=== PATIENT | female | born 1945 | race Caucasian/White ===

== ENCOUNTER 2020-09-08 09:31 | Outpatient (REF) | payer MEDICARE, OTHER, SELFPAY ==
[2020-09-08 11:13] LABS: MANUAL DIFF FLAG NO
[2020-09-08 11:30] LABS: Basophils Absolute Auto 0.1 X10*3/uL (0.0-0.2); Basophils Percent Auto 0.9 % (0-2); Eosinophils Absolute Auto 0.1 X10*3/uL (0.0-0.4); Eosinophils Percent Auto 1.9 % (0-4); Hematocrit 40.8 % (37-47); Hemoglobin 13.5 g/dl (12.0-16.0); Imm Gran Abs Auto 0.02 X10*3/uL (0.00-0.03); Imm Gran Pct Auto 0.3 % (0.0-0.4); Lymphocytes Absolute Auto 1.9 X10*3/uL (1.2-4.9); Lymphocytes Percent Auto 32.5 % (20-40); Mean Corpuscular HGB Conc 33.1 g/dl (31.0-35.0); Mean Corpuscular Hemoglobin 30.5 pg (27.0-33.0); Mean Corpuscular Volume 92.3 fL (80-98); Monocytes Absolute Auto 0.4 X10*3/uL (0.1-1.2); Monocytes Percent Auto 7.3 % (2-11); Neutrophils Absolute Auto 3.3 X10*3/uL (2.0-8.3); Neutrophils Percent Auto 57.1 % (45-73); Platelet Count 426 X10*3/uL (160-400); Red Blood Count 4.42 X10*6/uL (4.20-5.50); Red Cell Distribution Width 12.8 % (11.0-16.0); White Blood Count 5.8 X10*3/uL (4.8-10.8)
[2020-09-08 11:42] LABS: Alanine Aminotransferase 36 U/L (0-31); Albumin Level 4.3 g/dL (3.5-5.0); Alkaline Phosphatase 57 U/L (39-117); Anion Gap 12 (12-20); Aspartate Amino Transferase 25 U/L (5-31); Blood Urea Nitrogen 12 mg/dL (9-16); Calcium 9.4 mg/dL (8.4-10.2); Carbon Dioxide 28 mmol/L (22-29); Chloride 102 mmol/L (96-108); Cholesterol 190 mg/dL; Estimated Glomerular Filt Rate > 60; Glucose Random 86 mg/dL (60-115); HDL Cholesterol 43 mg/dL; LDL Cholesterol Calculated 123 mg/dl; Potassium 4.2 mmol/L (3.3-5.1); Sodium 138 mmol/L (135-145); Total Protein 6.7 g/dL (6.5-8.0); Triglycerides 123 mg/dL
[2020-09-08 12:08] LABS: Free T4 (Free Thyroxine) 0.88 ng/dL (0.71-1.85); Thyroid Stimulating Hormone 2.57 uIU/mL (0.32-4.0); Vitamin D 25-OH Total 28.8 ng/mL (>30)
[2020-09-08 12:17] LABS: Folate 10.9 ng/mL (> or = 4.0); Vitamin B12 266 pg/mL (200-900)
== END 2020-09-08 09:32 | disposition home or self-care (01) ==
LOC: HO.HMGCLDS 09:31
PROVIDERS: PCP Internal Medicine; Visit Provider Internal Medicine
DX: E78.00 Pure hypercholesterolemia, unspecified (principal)
CPT/HCPCS: 36415; 80053; 80061; 82306; 82607; 82746; 84439; 84443; 85025

== ENCOUNTER 2020-10-28 07:16 | Outpatient (REF) | payer MEDICARE, OTHER, SELFPAY ==
--- NOTE | ~2020-10-28 | MM_ITS ---
EXAMINATION: MM SCREENING DIGITAL BREAST TOMOSYNTHESIS, RIGHT CLINICAL INFORMATION: Screening. Asymptomatic. Left mastectomy 1992. COMPARISON: Mammography: 07/11/2019, 06/04/2018, 04/20/2017, 03/29/2016, 08/17/2015, 02/23/2015, 02/17/2015, 01/20/2014, 12/13/2012, 07/07/2011 TECHNIQUE: Digital breast tomosynthesis is performed in both the craniocaudal and mediolateral oblique views along with computer-aided detection (CAD). Synthesized 2D images are generated from the tomosynthesis. Additional exaggerated CC view is provided. FINDINGS: There are scattered areas of fibroglandular density (ACR BI-RADS breast composition Category b). There is architectural distortion 7:00 position approximately 4 cm from nipple. Patient will be recalled to further characterize. The remainder the right breast shows scattered fibroglandular densities similar to prior exams. The skin contours are smooth. MM/MM tomosynthesis screening RT IMPRESSION: Architectural distortion 7:00 position approximately 4 cm from nipple. ASSESSMENT: BI-RADS 0: Incomplete - Need Additional Imaging Evaluation RECOMMENDATION: 1. Additional views of the right breast (3-D spot CC, 3-D spot ML) 2. Targeted ultrasound right breast. 3. Radiology department staff will contact the patient for additional imaging. This patient's information was entered into a reminder system with a target due date for their next mammogram.
== END 2020-10-28 07:17 | disposition home or self-care (01) ==
LOC: HO.MAMMO 07:16
PROVIDERS: PCP Internal Medicine; Visit Provider Internal Medicine
DX: Z12.31 Encounter for screening mammogram for malignant neoplasm of breast (principal)
CPT/HCPCS: 77063; 77067

== ENCOUNTER 2020-11-12 13:09 | Outpatient (REF) | payer MEDICARE, OTHER, SELFPAY ==
--- NOTE | ~2020-11-12 | US_ITS ---
EXAMINATION: US DIAGNOSTIC ULTRASOUND BREAST, RIGHT CLINICAL INFORMATION: Asymmetric right breast density. COMPARISON: November 12, 2020 and studies dating back to July 07, 2011. TECHNIQUE: Ultrasound of the breast is performed with real-time lam scale imaging and color Doppler. FINDINGS: Targeted ultrasound evaluation of the right breast at the 8:00 position approximately 4 cm from the nipple demonstrates a heterogeneous and mainly hyperechoic region containing a small 3 mm cyst which has distal sound shadowing over a width of 1.2 cm. Recommend ultrasound-guided core biopsy of this region. Results are discussed with the patient at time of visit. Referring provider's office was called with Carola being given the above recommendation. US/US breast RT limited IMPRESSION: Somewhat irregular density about the inferior lateral aspect of the right breast with abnormal ultrasound findings as described above. Ultrasound-guided core biopsy is recommended. ASSESSMENT: BI-RADS 4: Suspicious (subcategory 4A: Low suspicion for malignancy) RECOMMENDATION: Ultrasound-guided right breast core biopsy.
--- NOTE | ~2020-11-12 | MM_ITS ---
EXAMINATION: MM DIAGNOSTIC DIGITAL BREAST TOMOSYNTHESIS, RIGHT. Targeted right breast ultrasound CLINICAL INFORMATION: Irregular density about the inferior lateral aspect of the right breast COMPARISON: Mammography: Mammography of October 28, 2020 and studies dating back to July 07, 2011 TECHNIQUE: Digital breast tomosynthesis is performed. 2D images are generated from the tomosynthesis. The following views are obtained: Spot compression craniocaudal and 90 degree mediolateral views of the right breast. Targeted right breast ultrasound FINDINGS: There are scattered areas of fibroglandular density (ACR BI-RADS breast composition Category b). The asymmetric density about the inferior lateral aspect of the right breast approximately 4 cm from the nipple is persistent and more prominent than it was on studies of June 04, 2018 and earlier. There is a question of some spiculation with somewhat low density center which may be related to radial scar. No suspicious calcifications identified. Targeted ultrasound evaluation of the right breast at the 8:00 position approximately 4 cm from the nipple demonstrates a heterogeneous and mainly hyperechoic region containing a small 3 mm cyst which has distal sound shadowing over a width of 1.2 cm. Recommend ultrasound-guided core biopsy of this region. Results are discussed with the patient at time of visit. Referring provider's office was called with Carola being given the above recommendation. MM/MM tomosynthesis added views R IMPRESSION: Somewhat irregular density about the inferior lateral aspect of the right breast with abnormal ultrasound findings as described above. Ultrasound-guided core biopsy is recommended. ASSESSMENT: BI-RADS 4: Suspicious (subcategory 4A: Low suspicion for malignancy) RECOMMENDATION: Ultrasound-guided right breast core biopsy.
== END 2020-11-12 13:10 | disposition home or self-care (01) ==
LOC: HO.MAMMO 13:09
PROVIDERS: Visit Provider Internal Medicine
DX: R92.2 Inconclusive mammogram (principal)
CPT/HCPCS: 76642; 77061; 77065

== ENCOUNTER 2020-12-11 09:41 | Outpatient (REF) | payer MEDICARE, OTHER, SELFPAY ==
--- NOTE | ~2020-12-11 | US_ITS ---
EXAMINATION: US DIAGNOSTIC ULTRASOUND BREAST, RIGHT CLINICAL INFORMATION: 75-year-old scheduled for ultrasound-guided core biopsy parenchymal asymmetry lower outer right breast. No palpable abnormality. COMPARISON: Mammography 10/28/2020, 11/12/2020, targeted right breast ultrasound 11/12/2020. TECHNIQUE: Ultrasound right breast is targeted to the lower and outer quadrant. Grayscale imaging and color Doppler are performed without and with chronic. FINDINGS: Case previously reviewed with interpreting radiologist from the diagnostic mammography and right breast ultrasound 11/12/2020. The real-time ultrasound findings are not clearly appreciated on the saved images from 11/12/2020. Rescanning today shows superficial punctate cyst as previously noted and some scant nonfocal shadowing. There is no clearly definable focal ultrasound finding to confidently direct tissue sampling. Therefore, right breast biopsy was subsequently performed under stereotactic guidance and described in a separate report. US/US breast ndl core biopsy RT IMPRESSION: Recently noted real-time ultrasound findings are not clearly appreciated to confidently direct tissue sampling. Right breast biopsy subsequently performed under stereotactic guidance same date. See separate report.
--- NOTE | ~2020-12-11 | MM_ITS ---
EXAMINATION: STEREOTACTIC TOMOSYNTHESIS-GUIDED VACUUM-ASSISTED BREAST BIOPSY, RIGHT SPECIMEN RADIOGRAPH, RIGHT POST PROCEDURE DIGITAL BREAST TOMOSYNTHESIS, RIGHT CLINICAL INFORMATION: Parenchymal asymmetry with questionable architectural changes anterior inferior lateral right breast. Prior history left mastectomy for breast cancer 1991. COMPARISON: Mammography 11/12/2020, 5 11/12/2020, 07/11/2019, 06/04/2018, 04/20/2017, 03/29/2016, 08/17/2015, 02/23/2015, 02/17/2015. Ultrasound right breast 11/12/2020. TECHNIQUE/PROCEDURE: Informed consent was obtained from the patient after discussion of the benefits, risks, and alternatives to biopsy today. Patient appeared to understand. Gave opportunity for questions. Patient signed consent form. BIOPSY TABLE: [employer] Prone Biopsy System. LESION: Parenchymal asymmetry inferior lateral right breast. LOCAL ANESTHESIA: 7 mL 1% lidocaine; 12 mL 1% lidocaine with epinephrine. DERMATOTOMY: Single skin shiva dermatotomy performed. NEEDLE: [employer] Eviva 9-gauge vacuum assisted core biopsy device. APPROACH: lateral medial. TARGETING: Digital breast tomosynthesis used for targeting. CORES: 12. CLIP: [employer] Cylinder-shaped marker. SPECIMEN RADIOGRAPH: Specimen radiograph is taken in separate room using digital mammography. There are scattered parenchymal densities in the cores expected. POST PROCEDURE DIGITAL BREAST TOMOSYNTHESIS, RIGHT: The post biopsy mammogram is performed in separate room using separate digital breast tomosynthesis equipment from the biopsy procedure. CC and ML views are obtained. Synthesized images are obtained from the tomography. There are scattered areas of fibroglandular density (breast composition category: b). The clip marker is in position. No significant hematoma present. The patient tolerated the procedure well. Home instructions reviewed with the patient. Final pathology results are pending. MM/MM stereotactic biopsy RT IMPRESSION: 1. Digital tomosynthesis-guided core biopsy right breast with clip placement. 2. Specimen radiograph taken and post procedure mammogram. There is satisfactory positioning of the biopsy clip. 3. Final pathology results pending. An addendum report will be issued.
== END 2020-12-11 09:42 | disposition home or self-care (01) ==
LOC: HO.MAMMO 09:41
PROVIDERS: Visit Provider Surgery
DX: R92.8 Other abnormal and inconclusive findings on diagnostic imaging of breast (principal); N64.89 Other specified disorders of breast; Z79.899 Other long term (current) drug therapy; Z87.891 Personal history of nicotine dependence
CPT/HCPCS: 19081; 19083; 88305; 99202; A4648

== ENCOUNTER → 2020-12-15 09:01 | Outpatient (BNVA) | payer MEDICARE, OTHER, SELFPAY | PROVIDERS: PCP Internal Medicine; Referring Provider Internal Medicine; Visit Provider Surgery | DX: N64.89 Other specified disorders of breast (principal) | CPT/HCPCS: 99202 ==

== ENCOUNTER 2021-10-19 07:07 | Outpatient (REF) | payer MEDICARE, OTHER, SELFPAY ==
[2021-10-19 11:40] LABS: MANUAL DIFF FLAG NO
[2021-10-19 11:49] LABS: Basophils Absolute Auto 0.1 X10*3/uL (0.0-0.2); Basophils Percent Auto 1.3 % (0-2); Eosinophils Absolute Auto 0.2 X10*3/uL (0.0-0.4); Eosinophils Percent Auto 3.7 % (0-4); Hematocrit 41.8 % (37.0-47.0); Hemoglobin 13.9 g/dl (12.0-16.0); Imm Gran Abs Auto 0.03 X10*3/uL (0.00-0.03); Imm Gran Pct Auto 0.5 % (0.0-0.4); Lymphocytes Absolute Auto 1.8 X10*3/uL (1.2-4.9); Mean Corpuscular HGB Conc 33.3 g/dl (31.0-35.0); Mean Corpuscular Hemoglobin 31.5 pg (27.0-33.0); Mean Corpuscular Volume 94.8 fL (80.0-98.0); Mean Platelet Volume 10.3 fL (9.4-12.3); Monocytes Absolute Auto 0.7 X10*3/uL (0.1-1.2); Monocytes Percent Auto 11.3 % (2-11); Neutrophils Absolute Auto 3.4 x10*3/uL (2.0-8.3); Neutrophils Percent Auto 54.2 % (45-73); Platelet Count 435 X10*3/uL (160-400); Red Blood Count 4.41 X10*6/uL (4.20-5.50); Red Cell Distribution Width 13.2 % (11.0-16.0); White Blood Count 6.2 X10*3/uL (4.8-10.8)
[2021-10-19 12:19] LABS: Alanine Aminotransferase 23 U/L (0-31); Albumin Level 4.1 g/dL (3.5-5.0); Alkaline Phosphatase 58 U/L (39-117); Anion Gap 10 (12-20); Aspartate Amino Transferase 22 U/L (5-31); Bilirubin Total 0.6 mg/dL (0.0-1.0); Blood Urea Nitrogen 17 mg/dL (9-16); Calcium 9.8 mg/dL (8.4-10.2); Carbon Dioxide 27 mmol/L (22-29); Chloride 106 mmol/L (96-108); Cholesterol 202 mg/dL; Estimated Glomerular Filt Rate 53; Glucose Random 83 mg/dL (60-115); HDL Cholesterol 52 mg/dL; LDL Cholesterol Calculated 133 mg/dl; Sodium 138 mmol/L (135-145); Total Protein 6.6 g/dL (6.5-8.0); Triglycerides 85 mg/dL
[2021-10-19 12:25] LABS: Free T4 (Free Thyroxine) 0.95 ng/dL (0.71-1.85); Thyroid Stimulating Hormone 3.75 uIU/mL (0.32-4.0); Vitamin D 25-OH Total 31.5 ng/mL (>30)
[2021-10-19 12:43] LABS: Folate 6.1 ng/mL (> or = 4.0); Vitamin B12 589 pg/mL (200-900)
== END 2021-10-19 07:08 | disposition home or self-care (01) ==
LOC: HO.HMGCLDS 07:07
PROVIDERS: Visit Provider Internal Medicine
DX: K21.9 Gastro-esophageal reflux disease without esophagitis (principal); E78.00 Pure hypercholesterolemia, unspecified
CPT/HCPCS: 36415; 80053; 80061; 82306; 82607; 82746; 84439; 84443; 85025

== ENCOUNTER 2022-02-03 13:20 | Outpatient (REF) | payer MEDICARE, OTHER, SELFPAY ==
[2022-02-03 16:44] LABS: Appearance Urine CLOUDY; Color Urine YELLOW; Glucose Urine UA NEG (NEG); Leukocyte Esterase Urine 3+ (NEG); Nitrite Urine NEG (NEG); PH 5.5 (5.0-8.0); Specific Gravity - Urine 1.025 (1.005-1.025); UACC Culture Trigger YES; Urine Blood TRACE (NEG); Urine Ketones NEG (NEG); Urine Protein NEG (NEG-TRACE)
[2022-02-03 16:55] LABS: Squamous Epithelial Cell Urine 1+ /LPF; WBC Urine 30-49 /HPF (0-4)
[2022-02-03 16:56] LABS: Bacteria Urine 2+ /LPF
== END 2022-02-03 13:21 | disposition home or self-care (01) ==
LOC: HO.HMGCLDS 13:20
PROVIDERS: PCP Internal Medicine; Visit Provider Internal Medicine
DX: N39.0 Urinary tract infection, site not specified (principal)
CPT/HCPCS: 81001; 87086

== ENCOUNTER 2022-02-23 12:54 | Outpatient (REF) | payer MEDICARE, OTHER, SELFPAY | END 2022-02-23 12:55 | disposition home or self-care (01) | LOC: HO.HMGCLNP 12:54 | PROVIDERS: PCP Internal Medicine; Visit Provider Internal Medicine | DX: Z13.89 Encounter for screening for other disorder (principal) ==

== ENCOUNTER 2022-02-24 08:51 | Outpatient (REF) | payer MEDICARE, OTHER, SELFPAY ==
[2022-02-24 13:29] LABS: Appearance Urine Clear; Color Urine Yellow; Glucose Urine UA Negative (Negative); Leukocyte Esterase Urine Small (1+) (Negative); Nitrite Urine Negative (Negative); PH 5.5 (5.0-9.0); Urine Blood Negative (Negative); Urine Ketones Negative (Negative); Urine Protein Negative (Neg-Trace)
[2022-02-24 13:45] LABS: Bacteria Urine None Seen (None Seen); Hyaline Casts Urine 0-2 /LPF (0-2); RBC Urine 0-2 /HPF (0-2); UACC Culture Trigger YES; WBC Urine 0-5 /HPF (0-5)
== END 2022-02-24 08:52 | disposition home or self-care (01) ==
LOC: HO.HMGCLDS 08:51
PROVIDERS: PCP Internal Medicine; Visit Provider Internal Medicine
DX: N39.0 Urinary tract infection, site not specified (principal)
CPT/HCPCS: 81001; 81003; 87086

== ENCOUNTER 2022-03-01 12:44 | Outpatient (REF) | payer MEDICARE, OTHER, SELFPAY ==
--- NOTE | ~2022-03-01 | MM_ITS ---
EXAMINATION: BONE DENSITOMETRY CLINICAL INDICATION: Osteoporosis. COMPARISON: Previous BD dated 07/11/2019 and baseline BD dated 06/09/2008. TECHNIQUE: Using a [employer] DXA System (software version: 13.1) manufactured by [employer], dual-energy x-ray absorptiometry was performed of the lumbar spine and right hip. Patient with left hip replacement. The images are of good technical quality. Summary results are attached. FINDINGS: AP SPINE L1-L4: Current: BMD 1.402 g/cm2, Z-score 3.0, T-score 1.8, normal, 5.0% increase from previous, 14.5% increase from baseline (<5% change is not significant). Prior: BMD 1.335 g/cm2. Baseline: BMD 1.224 g/cm2. RIGHT FEMUR, NECK: Current: BMD 0.930 g/cm2, Z-score 0.9, T-score -0.8, normal. Prior: BMD 0.841 g/cm2. Baseline: BMD 0.743 g/cm2. RIGHT FEMUR, TOTAL: Current: BMD 0.871 g/cm2, Z-score 0.4, T-score -1.1, osteopenia, 1.3% increase from previous, 8.6% decrease from baseline (<5% change is not significant). Prior: BMD 0.860 g/cm2. Baseline: BMD 0.953 g/cm2. IDENTIFIED RISK FACTORS: Menopause, low calcium intake, family history (parent hip fracture). HISTORY OF FRACTURE: None listed. MEDICATIONS: Calcium, vitamin D. MM/XR DEXA axial skeleton IMPRESSION: 1. DIAGNOSIS: Osteopenia based on the lowest T-score value of -1.1 in the total femur applying World Health Organization criteria. 2. 10-YEAR FRACTURE RISK PREDICTION, FRAX: Major osteoporotic fracture (clinical spine, forearm, hip or shoulder) 15.7%. Hip fracture 6.7%. 3. Treatment Recommendations: NOF guidelines recommend consideration for treatment in postmenopausal women and men age 50 and older presenting with the following: -A hip or vertebral (clinical or morphometric) fracture. -T-score less than or equal to -2.5 at the femoral neck or spine after appropriate evaluation to exclude secondary causes. -Low bone mass at the hip or spine and a 10-year fracture probability by FRAX of greater than or equal to 3% for hip fracture or greater than or equal to 20% for major osteoporotic fracture based on the [place] adapted WHO algorithm. 4. Other Recommendations: All treatment decisions require clinical judgment and consideration of individual patient factors, including patient preferences, comorbidities, previous drug use, risk factors not captured in the FRAX model (e.g. frailty, falls, vitamin D deficiency, increased bone turnover, interval significant decline in bone density) and possible under or overestimation of fracture risk by FRAX. Additional medical evaluation for secondary cause of low bone mineral density may be appropriate. FUTURE SCAN RECOMMENDATION: People with diagnosed cases of osteoporosis or at high risk for fracture should have regular bone mineral density tests. For patients eligible for Medicare, routine testing is allowed once every 2 years. The testing frequency can be increased to one year for patients who have rapidly progressing disease, those who are receiving or discontinuing medical therapy to restore bone mass, or have additional risk factors.
== END 2022-03-01 12:45 | disposition home or self-care (01) ==
LOC: HO.MAMMO 12:44
PROVIDERS: PCP Internal Medicine; Visit Provider Internal Medicine
DX: Z13.820 Encounter for screening for osteoporosis (principal); M81.0 Age-related osteoporosis without current pathological fracture; Z78.0 Asymptomatic menopausal state
CPT/HCPCS: 77080

== ENCOUNTER 2023-01-16 09:01 | Outpatient (REF) | payer MEDICARE, OTHER, SELFPAY ==
[2023-01-16 11:32] LABS: MANUAL DIFF FLAG NO
[2023-01-16 11:45] LABS: Basophils Absolute Auto 0.1 X10*3/uL (0.0-0.2); Basophils Percent Auto 1.1 % (0-2); Eosinophils Absolute Auto 0.2 X10*3/uL (0.0-0.4); Eosinophils Percent Auto 3.4 % (0-4); Hematocrit 42.6 % (37.0-47.0); Hemoglobin 13.9 g/dl (12.0-16.0); Imm Gran Abs Auto 0.03 X10*3/uL (0.00-0.03); Imm Gran Pct Auto 0.5 % (0.0-0.4); Lymphocytes Absolute Auto 2.2 X10*3/uL (1.2-4.9); Lymphocytes Percent Auto 34.2 % (20-40); Mean Corpuscular HGB Conc 32.6 g/dl (31.0-35.0); Mean Corpuscular Hemoglobin 30.7 pg (27.0-33.0); Mean Platelet Volume 10.6 fL (9.4-12.3); Monocytes Absolute Auto 0.5 X10*3/uL (0.1-1.2); Monocytes Percent Auto 7.3 % (2-11); Neutrophils Absolute Auto 3.4 x10*3/uL (2.0-8.3); Neutrophils Percent Auto 53.5 % (45-73); Platelet Count 421 X10*3/uL (160-400); Red Blood Count 4.53 X10*6/uL (4.20-5.50); Red Cell Distribution Width 13.4 % (11.0-16.0); White Blood Count 6.4 X10*3/uL (4.8-10.8)
[2023-01-16 12:07] LABS: Alanine Aminotransferase 20 U/L (0-31); Albumin Level 4.2 g/dL (3.5-5.0); Alkaline Phosphatase 61 U/L (39-117); Anion Gap 11 (12-20); Aspartate Amino Transferase 22 U/L (5-31); Bilirubin Total 0.6 mg/dL (0.0-1.0); Blood Urea Nitrogen 10 mg/dL (9-16); Calcium 9.5 mg/dL (8.4-10.2); Carbon Dioxide 27 mmol/L (22-29); Chloride 106 mmol/L (96-108); Cholesterol 190 mg/dL; Estimated Glomerular Filt Rate > 60; Glucose Random 94 mg/dL (60-115); HDL Cholesterol 44 mg/dL; LDL Cholesterol Calculated 123 mg/dl; Potassium 4.1 mmol/L (3.3-5.1); Sodium 140 mmol/L (135-145); Total Protein 6.9 g/dL (6.5-8.0); Triglycerides 117 mg/dL
[2023-01-16 12:14] LABS: Free T4 (Free Thyroxine) 1.05 ng/dL (0.71-1.85); Thyroid Stimulating Hormone 2.86 uIU/mL (0.32-4.0); Vitamin D 25-OH Total 44.4 ng/mL (>30)
[2023-01-16 12:33] LABS: Folate 10.6 ng/mL (> or = 4.0); Vitamin B12 334 pg/mL (200-900)
== END 2023-01-16 09:02 | disposition home or self-care (01) ==
LOC: HO.HMGCLDS 09:01
PROVIDERS: PCP Internal Medicine; Visit Provider Internal Medicine
DX: E78.00 Pure hypercholesterolemia, unspecified (principal); M85.80 Other specified disorders of bone density and structure, unspecified site; E55.9 Vitamin D deficiency, unspecified
CPT/HCPCS: 36415; 80053; 80061; 82306; 82607; 82746; 84439; 84443; 85025

== ENCOUNTER 2023-01-23 08:41 | Outpatient (AMB) | payer MEDICARE, OTHER, SELFPAY ==
[2023-01-23 08:45] VITALS: BP 124/78; PULSE 72; O2SAT 99; BMI 29.0
--- NOTE | 2023-01-23 08:45 | A.OFFPC_ITS ---
Vital Signs 01/23/23 08:45 Height 5 ft 7 in Weight 185 lb BMI 29.0 BP 124/78 Blood Pressure Location Rt brachial Position Sitting Pulse 72 Pulse Source Pulse Oximeter Temp Source Skin Pulse Oximetry (%) 99 Oxygen Delivery Method Room Air Intake Visit Reasons: Annual Exam Intake Note: Patient is here today for a physical. 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 Allergies ciprofloxacin [Cipro] Allergy (Unknown, Verified 01/23/23 08:49) Unknown pravastatin Allergy (Unknown, Verified 01/23/23 08:49) Unknown rosuvastatin [Crestor] Allergy (Unknown, Verified 01/23/23 08:49) leg cramps simvastatin Allergy (Unknown, Verified 01/23/23 08:49) Unknown Medication List - Last Reconciled 01/23/23 by Sejal Stern MD amlodipine 2.5 mg PO DAILY calcium carbonate-vitamin D3 600 mg-5 mcg (200 unit) (Calcium 600 + D(3)) 1 tab PO DAILY celecoxib 200 mg PO DAILY ezetimibe 10 mg PO DAILY gabapentin 100 mg PO BEDTIME multivitamin 1 tab PO DAILY omeprazole 20 mg PO DAILY 90 days Tobacco use date assessed: 01/23/23 Fall risk assessment: No Falls in past year Last assessed Fall Risk: 01/23/23 Dental Screening Dental Screen Date: 01/23/23 Did you have a dental visit in the last 12 months?: Yes Did you have a dental problem in the last 6 months where you did not have access to dental care?: No Was dental information given to patient?: Patient has dentist HPI Annual Exam HPI Details 77-year-old overweight female with history of left breast cancer hypertension hypercholesterolemia GERD osteopenia last seen in June 2022. Patient is here for physical exam. Review of the notes in October was here in the office for preoperative evaluation for cataract surgery in October in November. Patient has also met with Orthopedics for an intra-articular right hip injection for arthritis. patient states burning 2x this summer neck chest and epigastric area wakes patient up states palpitations also no n no v no fevwers, no coughing, states getting sob on walking up the stairs. PENDING SALE TO [facility] Medical History (Updated 01/23/23 @ 09:11 by Sejal Stern MD) Abnormal ultrasound of breast Age-related osteoporosis without current pathological fracture Annual physical exam Breast cancer, left Breast density GERD (gastroesophageal reflux disease) Hip osteoarthritis Hypercholesterolemia Osteopenia Peripheral neuropathy Radial scar of right breast Skin cancer, basal cell Subclinical hypothyroidism Vaginal wall prolapse Surgical History (Updated 01/23/23 @ 09:02 by Sejal Stern MD) History of cataract surgery History of cholecystectomy History of left hip replacement History of left mastectomy History of lumbar surgery History of tonsillectomy and adenoidectomy Family History Father CVD (cardiovascular disease) Mother Uterine cancer Brother In good health Daughter In good health Brother Cancer Social History (Updated 01/23/23 @ 09:13 by Sejal Stern MD) Housing: House Alcohol intake: current Patient Tobacco Use Status: Former Tobacco user Years Smoked: 37 years old e-Cigarette/Vaping Use: Never Used Second Hand Smoke Exposure: No Current occupational status: retired Cognitive needs: No Hearing needs: No Vision needs: Yes Female Reproductive History Menstrual Age of Menarche: 11 Questionnaire PHQ-9 Over the last 2 weeks, how often have you been bothered by any of the following problems? 1. Little interest or pleasure in doing things: not at all 2. Feeling down, depressed, or hopeless: not at all 3. Trouble falling or staying asleep, or sleeping too much: not at all 4. Feeling tired or having little energy: not at all 5. Poor appetite or overeating: not at all 6. Feeling bad about yourself - or that you are a failure or have let yourself or your family down: not at all 7. Trouble concentrating on things, such as reading the newspaper or watching television: not at all 8. Moving or speaking so slowly that other people could have noticed. Or the opposite - being so fidgety or restless that you have been moving around a lot more than usual: not at all 9. Thoughts that you would be better off or of hurting yourself in some way: not at all Total score: 0 Depression Screening Interpretation: Negative Source: Developed by Drs. Lennox Stoll, Lulu Mar, Jerrell Newman and colleagues, with an educational jessie from [employer]. Thrive Questionnaire Date Thrive assessed: 07/20/22 I am a: Patient What is your living situation today?: I have a steady place to live Within the past 12 months, did the food you bought not last and you didn't have the money to get more?: Never true Within the past 12 months, did you worry whether your food would run out before you got money to buy more?: Never true AUDIT C Alcohol Use Questionnaire (AUDIT-C) 1. How often do you have a drink containing alcohol?: 2-3 times a week 3. How often do you have six or more drinks on one occasion?: Never Total Score: 3 SERG-7 AMB Questionnaire SERG-7 Date SERG - 7 assessed: 01/23/23 Feeling nervous, anxious, or on edge: 0 = Not at all Not being able to stop or control worryin = Not at all Worrying too much about different things: 0 = Not at all Trouble relaxin = Not at all Being so restless that it is hard to sit still: 0 = Not at all Becoming easily annoyed or irritable: 0 = Not at all Feeling afraid as if something awful might happen: 0 = Not at all Total SERG-7 score (0-4 normal; 5-9 mild; 10-14 moderate; 15-21 severe): 0 Source: Developed by Drs. Lennox Stoll, Lulu Mar, Jerrell Newman and colleagues, with an educational jessie from [employer]. Review of Systems Const Denies poor appetite and Denies weakness Eyes Denies no additional complaints ENT Reports Normal hearing present, Denies dizziness, Denies nasal congestion, Denies tinnitus and Denies sore throat Card Denies chest pain, Denies syncope, Denies rapid heart rate and Denies dyspnea Resp Denies cough and Denies dyspnea GI Denies change in stool character, Reports constipation, Denies diarrhea, Denies nausea and Denies vomiting Denies urinary frequency, Denies difficulty voiding and Denies dysuria Neuro Reports Normal hearing present, Denies confusion, Denies dizziness, Denies syncope and Denies weakness Psych Denies confusion Physical exam (Primary Care) Vital Signs: Last Vital Signs Pulse 72 01/23/23 08:45 BP 124/78 01/23/23 08:45 Pulse Ox 99 01/23/23 08:45 Oxygen Delivery Method Room Air 01/23/23 08:45 BMI result Body Mass Index 29.0 Tobacco/Smoking Status: Tobacco use Status Tobacco use date assessed 01/23/23 01/23/23 08:51 Patient Tobacco Use Status Former Tobacco user 01/23/23 08:51 e-Cigarette/Vaping Use Never Used 01/23/23 08:51 PHQ-9: PHQ-9 Score PHQ-9: Total score 0 01/23/23 08:51 Depression Screening Interpretation: Negative Thrive Assessment: Date of Thrive Assessment Date Thrive assessed 07/20/22 01/23/23 08:51 Const General: No confusion Orientation/consciousness: No confusion HENMT Head: Yes normocephalic Ears: external ears normal and TM's normal bilaterally Face and sinus: Yes normal facial exam Mouth: moist mucous membranes Throat: Yes tonsils normal Eyes Conjunctivae: conjunctivae normal Pupils: Equal, round and reactive pupils present and Pupil accommodation reflex normal Direct Ophthalmoscopy: normal light reflex Neck Neck: No lymphadenopathy Thyroid: Thyroid normal Chest Chest palpation & inspection: normal inspection of the chest Resp Effort & Inspection: normal respiratory effort and no audible wheezes Auscultation: clear to auscultation bilaterally, no crackles, no wheezes and lung sounds not diminished Cardio Rate: regular rate Rhythm: regular rhythm Peripheral pulses: radial pulses present and dorsalis pedis present GI Palpation (GI): no masses Auscultation: normal bowel sounds and normoactive bowel sounds Rectal Exam - Female: deferred Skin General skin exam: no rashes or lesions noted Rashes: no rashes Neuro General: No confusion Cranial nerves: Yes Equal, round and reactive pupils present and Yes Normal hearing present Cognition (Neuro): normal cognition Gait exam (Neuro): Normal gait present Motor exam (neuro): 5/5 motor strength present throughout Deep tendon reflexes (DTR's): Right brachioradialis reflex intensity grade: 2+, Left brachioradialis reflex intensity grade: 2+, Right patellar reflex intensity grade: 2+ and Left patellar reflex intensity grade: 2+ Extrem General: No edema Assessment and Plan Assessment & Plan (1) Physical exam, annual: Code(s): Z00.00 - Encounter for general adult medical examination without abnormal findings (2) Hypertension: Code(s): I10 - Essential (primary) hypertension Qualifiers: Hypertension type: essential hypertension Qualified Code(s): I10 - Essential (primary) hypertension Plan: Continue with blood pressure medication. Decrease salt intake and exercise patient is taking amlodipine 2.5 mg once a day (3) Hypercholesterolemia: Code(s): E78.00 - Pure hypercholesterolemia, unspecified Plan: Avoid fried foods, chicken skin, eggs, butter margarine, pastries and meat. Be it pork or beef they have a lot of cholesterol LDL goal of less than 130 and triglyceride of less than 150 patient is taking Zetia 10 mg once a day (4) GERD (gastroesophageal reflux disease): Code(s): K21.9 - Gastro-esophageal reflux disease without esophagitis Qualifiers: Esophagitis presence: without esophagitis Qualified Code(s): K21.9 - Gastro-esophageal reflux disease without esophagitis Plan: Avoid the foods that causes that usually spicy foods, tomato products, juices, coffee, soda and foods that your sensitive to. After eating do not lie down, allow 3-4 hours before in lie down. And keep the head of bed above 30 degrees to avoid the acid from going up. (5) Breast cancer, left: Comment: 1991 Code(s): C50.912 - Malignant neoplasm of unspecified site of left female breast Qualifiers: Breast location: unspecified site of breast Estrogen receptor status: unspecified Patient sex: female Qualified Code(s): C50.912 - Malignant neoplasm of unspecified site of left female breast Plan: Patient is reminded about the mammogram (6) Osteopenia: Comment: February 2022 Code(s): M85.80 - Other specified disorders of bone density and structure, unspecified site Plan: Patient is up-to-date with bone density (7) Palpitations: Code(s): R00.2 - Palpitations (8) SOB (shortness of breath) on exertion: Code(s): R06.02 - Shortness of breath Orders: Orders CA stress test Today R06.02 - Shortness of breath ECG 12 lead EKG Today R00.2 - Palpitations FL upper GI series Today K21.9 - Gastro-esophageal reflux disease without esophagitis, R13.10 - Dysphagia, unspecified Referrals Gastroenterology Referral K21.9 - Gastro-esophageal reflux disease without esophagitis Coding Level of Care Code Est Pt Prev Care >65y(41690) Diagnoses Physical exam, annual Z00.00 Hypertension I10 Hypertension type: essential hypertension Hypercholesterolemia E78.00 GERD (gastroesophageal reflux disease) K21.9 Esophagitis presence: without esophagitis Breast cancer, left C50.815 Breast location: unspecified site of breast Estrogen receptor status: unspecified Patient sex: female Osteopenia M85.80 Palpitations R00.2 SOB (shortness of breath) on exertion R06.02
== END 2023-01-23 09:33 | disposition home or self-care (01) ==
PROVIDERS: PCP Internal Medicine; Visit Provider Internal Medicine
DX: Z00.00 Encounter for general adult medical examination without abnormal findings (principal); I10 Essential (primary) hypertension; K21.9 Gastro-esophageal reflux disease without esophagitis; C50.912 Malignant neoplasm of unspecified site of left female breast; E78.00 Pure hypercholesterolemia, unspecified; M85.80 Other specified disorders of bone density and structure, unspecified site; R00.2 Palpitations; R06.02 Shortness of breath
CPT/HCPCS: 99397

== ENCOUNTER → 2023-02-06 07:27 | Outpatient (REF) | payer MEDICARE, OTHER, SELFPAY ==
--- NOTE | 2023-02-06 07:54 | CA_ITS ---
Acquisition Time: 2023-02-06 08:00:18 Total Exercise Time: 00:05:07 Test Indications: Dyspnea Medications: Protocol: HELEN Max HR: 130 BPM 92% of Pred: 141 BPM Max BP: 175/060 mmHG Max Work Load: 7.0 METS Exercise stress test 5 min 7 sec of Helen protocol achieving 92% MPHR 7 METs, with moderate SOB, no chest discomfort, with isolated PVCs and ventricular bigemey, without EKG changes. Test reviewed with Dr Johnson. Referred By: Sejal Stern Overread By: BUTCH JOHNSON MD
== END ==
LOC: HO.CARD 07:27
PROVIDERS: PCP Internal Medicine; Visit Provider Internal Medicine
DX: R06.02 Shortness of breath (principal)
CPT/HCPCS: 93017

== ENCOUNTER → 2023-02-06 07:54 | Outpatient (BNV) | payer MEDICARE, OTHER, SELFPAY | PROVIDERS: PCP Internal Medicine; Visit Provider Internal Medicine Cardiovascular Disease | DX: R06.02 Shortness of breath (principal) | CPT/HCPCS: 93016; 93018 ==

== ENCOUNTER 2023-02-14 08:34 | Outpatient (REF) | payer MEDICARE, OTHER, SELFPAY ==
--- NOTE | ~2023-02-14 | FL_ITS ---
EXAMINATION: XR FLUOROSCOPY UPPER GI WITH AIR CLINICAL INFORMATION: Patient complaining of episodic gastroesophageal reflux. COMPARISON: No relevant prior. TECHNIQUE: Standard upper GI examination was performed with air contrast utilizing thin and thick barium, with effervescent granules. Numerous fluoroscopic spot images were obtained. FINDINGS: The esophagus has normal caliber and contour. No evidence of stricture, mucosal lesion, or mass. Esophageal peristalsis was normal. Limited views of the hypopharynx demonstrated no abnormalities or evidence of laryngeal penetration or aspiration. There is a small type I hiatus hernia at the GE junction. There was episodic gastroesophageal reflux during the examination to the level of the aortic arch. This occurred without provocative maneuvers. The stomach has a normal fold pattern and contour. No ulceration, mass, or lesion identified. The duodenal bulb, and duodenal sweep have a normal appearance with normal fold pattern. No abnormalities identified in the most proximal small bowel. FLUOROSCOPY TIME: 3.7 minutes 24 images obtained. DOSE AREA PRODUCT: 36.323 uGy-m2 (microgray-meter squared) FL/FL upper GI w air IMPRESSION: Small type I hiatus hernia. Episodic gastroesophageal reflux to the level of the aortic arch. Remainder the examination was normal.
== END 2023-02-14 08:35 | disposition home or self-care (01) ==
LOC: HO.XRAY 08:34
PROVIDERS: Visit Provider Internal Medicine
DX: R13.10 Dysphagia, unspecified (principal); K21.9 Gastro-esophageal reflux disease without esophagitis
CPT/HCPCS: 74246

== ENCOUNTER → 2023-02-14 08:38 | Outpatient (BNV) | payer MEDICARE, OTHER, SELFPAY | PROVIDERS: Visit Provider Radiology Diagnostic Radiology | DX: K21.9 Gastro-esophageal reflux disease without esophagitis (principal) | CPT/HCPCS: 74246 ==

== ENCOUNTER 2023-03-17 10:16 | Outpatient (AMB) | payer MEDICARE, OTHER, SELFPAY ==
[2023-03-17 12:09] VITALS: BP 126/76; PULSE 74; TEMP 36.6; O2SAT 97; BMI 29.0
--- NOTE | 2023-03-17 12:09 | AM.OFFWIN_ITS ---
Intake Vital Signs 03/17/23 12:09 Height 5 ft 7 in Weight 185 lb BMI 29.0 BP 126/76 Blood Pressure Location Rt brachial Position Sitting Pulse 74 Pulse Source Pulse Oximeter Temp 97.9 F Temp Source Temporal Artery Scan Pulse Oximetry (%) 97 Intake Visit Reasons: EP, UTI? Intake Note: pt is here for c/o possible uti Patient Tobacco Use Status: Former Tobacco user Allergies ciprofloxacin [Cipro] Allergy (Unknown, Verified 03/17/23 12:16) Unknown pravastatin Allergy (Unknown, Verified 03/17/23 12:16) Unknown rosuvastatin [Crestor] Allergy (Unknown, Verified 03/17/23 12:16) leg cramps simvastatin Allergy (Unknown, Verified 03/17/23 12:16) Unknown Do you need a note to return to daycare/school/sports/work: Yes HPI HPI Comments History of Present Illness Details This is a 78-year-old femalewho presents to the office today for sick visit. Patient complaining of UTI symptoms x3 days. Patient reports dysuria and increased urinary frequency / urgency for the past 3 days. She denies any fevers or chills. She denies any flank pain. She denies any abdominal pain or nausea/vomiting / diarrhea. [facility] Medical History (Updated 02/06/23 @ 08:44 by Sejal Stern MD) Age-related osteoporosis without current pathological fracture Annual physical exam Radial scar of right breast Abnormal ultrasound of breast Breast density Vaginal wall prolapse Breast cancer, left Subclinical hypothyroidism Hip osteoarthritis Hypercholesterolemia Skin cancer, basal cell Peripheral neuropathy Osteopenia GERD (gastroesophageal reflux disease) Surgical History (Updated 01/23/23 @ 09:02 by Sejal Stern MD) History of cataract surgery History of lumbar surgery History of left hip replacement History of tonsillectomy and adenoidectomy History of left mastectomy History of cholecystectomy Family History Father CVD (cardiovascular disease) Mother Uterine cancer Brother In good health Daughter In good health Brother Cancer Social History (Updated 01/23/23 @ 09:13 by Sejal Stern MD) Housing: House Alcohol intake: current Patient Tobacco Use Status: Former Tobacco user Years Smoked: 37 years old e-Cigarette/Vaping Use: Never Used Second Hand Smoke Exposure: No Current occupational status: retired Cognitive needs: No Hearing needs: No Vision needs: Yes Female Reproductive History Menstrual Age of Menarche: 11 Review of Systems Const All systems reviewed & are unremarkable except as noted in HPI and below Reports no additional complaints Eyes Reports no additional complaints ENT Reports no additional complaints Card Reports no additional complaints Resp Reports no additional complaints GI Reports no additional complaints Reports no additional complaints Musc Reports no additional complaints Skin/Breast Reports system reviewed and no additional complaints, except as documented Neuro Reports no additional complaints Psych Reports no additional complaints Endo Reports no additional complaints Martínez/Lymph Reports no additional complaints Aller/Immun Reports no additional complaints Physical Exam Vital Signs: Last Vital Signs Temp 97.9 F 03/17/23 12:09 Pulse 74 03/17/23 12:09 BP 126/76 03/17/23 12:09 Pulse Ox 97 03/17/23 12:09 BMI result Body Mass Index 29.0 Const Other: Vital signs reviewed. Constitutional: Non-toxic appearing. No acute distress. Well-developed and well-nourished. HEENT: Normocephalic and atraumatic. Tympanic membranes without erythema, edema, or bulging bilaterally. External auditory canals without erythema or edema bilaterally. Moist mucous membranes. No pharyngeal erythema or exudates. Skin: Warm and dry. No rashes or lesions noted. Neck: Full and painless range of motion. No cervical lymphadenopathy. Cardio: Regular rate and rhythm. No murmurs, gallops, or rubs. No lower extremity edema. No JVD. Pulmonary: No respiratory distress. No accessory muscle usage. Clear to auscultation bilaterally without wheezing, crackles, or rhonchi. Gastrointestinal: Soft, nontender, and nondistended in all 4 quadrants. Normoactive bowel sounds in all 4 quadrants. Genitourinary: No CVA tenderness. Musculoskeletal: Normal range of motion in joints throughout the body. No deformity or other signs of injury. Neuro: Alert and oriented x4. Cranial nerves 2-12 grossly intact. No focal deficits appreciated. Psych: Normal mood and affect. Results AMB Urinalysis, Automated UA Leukoctes 500 Wilber/uL Last Edit by Nicola Matt CMA on 03/17/23 12:1 7 UA Nitrite Positive Last Edit by Nicola Matt CMA on 03/17/23 12:17 UA Urobilinogen 0.2 mg/dL Last Edit by Nicola Matt CMA on 03/17/23 12 :17 UA Protein 30 mg/dL Last Edit by Nicola Matt CMA on 03/17/23 12:17 UA pH 5.5 Last Edit by Nicola Matt CMA on 03/17/23 12:17 UA Blood 80 Jason/uL Last Edit by Nicola Matt CMA on 03/17/23 12:17 UA Specific Carlisle 1.030 Last Edit by Nicola Matt CMA on 03/17/23 12:17 UA Ketone Negative Last Edit by Nicola Matt CMA on 03/17/23 12:17 UA Bilirubin 0 mg/dL Last Edit by Nicola Matt CMA on 03/17/23 12:17 UA Glucose 0 mg/dL Last Edit by Nicola Matt CMA on 03/17/23 12:17 Results Reviewed Results Reviewed: Laboratory Last Values Urine pH (Auto) 5.5 03/17/23 12:16 Specific [place] (Auto) 1.030 03/17/23 12:16 Urine Protein (Auto) 30 mg/dL 03/17/23 12:16 Glucose (UA)(Auto) 0 mg/dL 03/17/23 12:16 Urine Ketones (Auto) Negative 03/17/23 12:16 Urine Blood (Auto) 80 Jason/uL 03/17/23 12:16 Urine Nitrite (Auto) Positive 03/17/23 12:16 Urine Bilirubin (Auto) 0 mg/dL 03/17/23 12:16 Urine Urobilinogen (Auto) 0.2 mg/dL 03/17/23 12:16 Leukocyte Esterase (Auto) 500 Wilber/uL 03/17/23 12:16 Assessment & Plan Assessment & Plan (1) UTI (urinary tract infection): Code(s): N39.0 - Urinary tract infection, site not specified Plan Patient has presenting to the office complaining of urinary symptoms including dysuria and increased urinary frequency /urgency. POCT urinalysis shows positive nitrites and positive leukocyte esterase. Patient's vital signs are stable, physical exam is benign, and patient is overall nontoxic appearing. No CVA tenderness or systemic symptoms to suggest acute pyelonephritis. Patient is safe to be discharged home. History and physical most consistent with an acute uncomplicated cystitis. Patient sent home on p.o. trimethoprim sulfamethoxazole twice daily x7 days. Recommended symptomatic management including increased fluids, Advil/Tylenol as needed for pain as long as patient has no medical contraindications, and PO phenazopyridine three times daily as needed x 3 days. Patient was advised to follow-up here or proceed directly to the emergency room if they were to develop fever/chills, nausea/vomiting, flank/back pain, or worsening/persistent symptoms. Patient verbalizes understanding and they are in agreement with the plan. Orders: Orders AMB Urinalysis Automated Today Z13.9 - Encounter for screening, unspecified Medications: New sulfamethoxazole-trimethoprim 800-160 mg (Bactrim DS) 1 tab PO BID 14 tabs 0RF phenazopyridine 100 mg PO TID PRN 6 tabs 0RF pain 6 doses Coding Level of Care Code Est Pt Level 3 (59261) Diagnoses UTI (urinary tract infection) N39.0
== END 2023-03-17 12:22 | disposition home or self-care (01) ==
PROVIDERS: Visit Provider Physician Assistant Medical
DX: N39.0 Urinary tract infection, site not specified (principal); R35.0 Frequency of micturition
CPT/HCPCS: 81003; 99213

== ENCOUNTER 2023-04-27 14:33 | Outpatient (AMB) | payer MEDICARE, OTHER, SELFPAY ==
[2023-04-27 15:09] VITALS: BP 118/70; PULSE 62; O2SAT 95; BMI 28.7
--- NOTE | 2023-04-27 15:09 | A.OFFPC_ITS ---
Vital Signs 04/27/23 15:09 Height 5 ft 7 in Weight 183 lb BMI 28.7 BP 118/70 Blood Pressure Location Rt brachial Position Sitting Pulse 62 Pulse Source Pulse Oximeter Pulse Oximetry (%) 95 Oxygen Delivery Method Room Air Intake Visit Reasons: gerd Intake Note: Patient here for a follow up GERD Office Workforce Planner Required: No Accompanied by: Self / Same As Patient Allergies ciprofloxacin [Cipro] Allergy (Unknown, Verified 04/27/23 15:11) Unknown pravastatin Allergy (Unknown, Verified 04/27/23 15:11) Unknown rosuvastatin [Crestor] Allergy (Unknown, Verified 04/27/23 15:11) leg cramps simvastatin Allergy (Unknown, Verified 04/27/23 15:11) Unknown Medication List - Last Reconciled 04/27/23 by Sejal Stern MD amlodipine 2.5 mg PO DAILY calcium carbonate-vitamin D3 600 mg-5 mcg (200 unit) (Calcium 600 + D(3)) 1 tab PO DAILY celecoxib 200 mg PO DAILY esomeprazole magnesium (Nexium) 40 mg PO DAILY ezetimibe 10 mg PO DAILY gabapentin 100 mg PO BEDTIME multivitamin 1 tab PO DAILY Tobacco use date assessed: 01/23/23 Fall risk assessment: No Falls in past year Last assessed Fall Risk: 04/27/23 Dental Screening Dental Screen Date: 04/27/23 Did you have a dental visit in the last 12 months?: No Did you have a dental problem in the last 6 months where you did not have access to dental care?: No Was dental information given to patient?: Patient has dentist HPI gerd HPI Details [age] Year-old overweight female with hypertension hypercholesterolemia GERD osteopenia and history of left breast cancer coming in for follow-up. Last seen in December for physical exam. Patient's colonoscopy is good, mammogram last 1 was December 2021 and bone density is up-to-date. Patient has gotten RSV COVID-19 and flu shot recently. Patient was in the Urgent Center in March 17 for UTI was given Bactrim. Patient was also seen by the hematology oncology had a mammogram done 02/07/2023. Patient did have an upper GI series January 2023 showing small hiatal hernia reflux to the level of the aortic arch. Complained of shortness of breath so stress test done no EKG changes. startd with sitting exercises. GI scheduled for Dr. farris but patient declined seeing him- wants a different referral. will have nasal surgery Dr. Mitchell basal cell [facility] Medical History (Updated 02/06/23 @ 08:44 by Sejal Stern MD) Age-related osteoporosis without current pathological fracture Annual physical exam Radial scar of right breast Abnormal ultrasound of breast Breast density Vaginal wall prolapse Breast cancer, left Subclinical hypothyroidism Hip osteoarthritis Hypercholesterolemia Skin cancer, basal cell Peripheral neuropathy Osteopenia GERD (gastroesophageal reflux disease) Surgical History History of cataract surgery History of lumbar surgery History of left hip replacement History of tonsillectomy and adenoidectomy History of left mastectomy History of cholecystectomy Family History (Updated 04/27/23 @ 15:13 by TRU Claire) Father CVD (cardiovascular disease) Mother Uterine cancer Brother In good health Daughter In good health Brother Cancer Social History Housing: House Alcohol intake: current Patient Tobacco Use Status: Former Tobacco user Years Smoked: 37 years old e-Cigarette/Vaping Use: Never Used Second Hand Smoke Exposure: No service: No Current occupational status: retired Cognitive needs: No Hearing needs: No Vision needs: Yes Female Reproductive History Menstrual Age of Menarche: 11 Questionnaire Thrive Questionnaire Date Thrive assessed: 07/20/22 SERG-7 AMB Questionnaire SERG-7 Date SERG - 7 assessed: 01/23/23 Source: Developed by Drs. Lennox Stoll, Lulu Mar, Jerrell Newman and colleagues, with an educational jessie from [employer]. Physical exam (Primary Care) Vital Signs: Last Vital Signs Pulse 62 04/27/23 15:09 BP 118/70 04/27/23 15:09 Pulse Ox 95 04/27/23 15:09 Oxygen Delivery Method Room Air 04/27/23 15:09 BMI result Body Mass Index 28.7 Tobacco/Smoking Status: Tobacco use Status Tobacco use date assessed 01/23/23 04/27/23 15:16 Patient Tobacco Use Status Former Tobacco user 04/27/23 15:16 e-Cigarette/Vaping Use Never Used 04/27/23 15:16 Thrive Assessment: Date of Thrive Assessment Date Thrive assessed 07/20/22 04/27/23 15:16 Const General: alert; No acute distress Eyes Conjunctivae: conjunctivae normal Resp Auscultation: clear to auscultation bilaterally Cardio Rate: regular rate Rhythm: regular rhythm GI Inspection: Yes normal to inspection Extrem General: Yes normal to inspection and No edema Assessment and Plan Assessment & Plan (1) Breast cancer, left: Comment: 1991 Code(s): C50.912 - Malignant neoplasm of unspecified site of left female breast Qualifiers: Breast location: unspecified site of breast Estrogen receptor status: unspecified Patient sex: female Qualified Code(s): C50.912 - Malignant neoplasm of unspecified site of left female breast Plan: Patient follows up with hematology oncology in January 2023 last right mammogram (2) Hypertension: Code(s): I10 - Essential (primary) hypertension Qualifiers: Hypertension type: essential hypertension Qualified Code(s): I10 - Esse ntial (primary) hypertension Plan: Continue with blood pressure medication. Decrease salt intake and exercise on amlodipine 2.5 mg once a day (3) Hypercholesterolemia: Code(s): E78.00 - Pure hypercholesterolemia, unspecified Plan: Avoid fried foods, chicken skin, eggs, butter margarine, pastries and meat. Be it pork or beef they have a lot of cholesterol takes Zetia 10 mg once a day patient is statin intolerant (4) GERD (gastroesophageal reflux disease): Code(s): K21.9 - Gastro-esophageal reflux disease without esophagitis Qualifiers: Esophagitis presence: without esophagitis Qualified Code(s): K21.9 - Gastro-esophageal reflux disease without esophagitis Plan: Avoid the foods that causes that usually spicy foods, tomato products, juices, coffee, soda and foods that your sensitive to. After eating do not lie down, allow 3-4 hours before in lie down. And keep the head of bed above 30 degrees to avoid the acid from going up. On omeprazole 20 mg once a day (5) SOB (shortness of breath) on exertion: Code(s): R06.02 - Shortness of breath Plan: Stress test done revealed negative results Orders: Orders XR chest 2V Today R06.02 - Shortness of breath PFT pulmonary function test Today R06.02 - Shortness of breath Referrals Gastroenterology Referral K21.9 - Gastro-esophageal reflux disease without esophagitis Medications: New esomeprazole magnesium (Nexium) 40 mg PO DAILY 90 caps 0RF K21.9 - Gastro- esophageal reflux disease without esophagitis Discontinued omeprazole Discontinued Reason: Patient Refused 20 mg PO DAILY 90 days 90 caps 0RF K21.9 - Gastro-esophageal reflux disease without esophagitis Coding Level of Care Code Est Pt Level 4 (80420) Diagnoses Malignant neoplasm of left female breast, unspecified estrogen receptor status, unspecified site of breast C50.912 Breast location: unspecified site of breast Estrogen receptor status: unspecified Patient sex: female Essential hypertension I10 Hypertension type: essential hypertension Hypercholesterolemia E78.00 Gastroesophageal reflux disease without esophagitis K21.9 Esophagitis presence: without esophagitis SOB (shortness of breath) on exertion R06.02
== END 2023-04-27 15:54 | disposition home or self-care (01) ==
PROVIDERS: PCP Internal Medicine; Visit Provider Internal Medicine
DX: C50.912 Malignant neoplasm of unspecified site of left female breast (principal); I10 Essential (primary) hypertension; E78.00 Pure hypercholesterolemia, unspecified; K21.9 Gastro-esophageal reflux disease without esophagitis; R06.02 Shortness of breath
CPT/HCPCS: 99214

== ENCOUNTER 2023-06-02 13:11 | Outpatient (AMB) | payer MEDICARE, OTHER, SELFPAY ==
[2023-06-02 13:20] VITALS: BP 169/71; PULSE 75; BMI 28.9
--- NOTE | 2023-06-02 13:20 | A.OFFVIS_ITS ---
Intake Vital Signs 06/02/23 13:20 Height 5 ft 7 in Weight 184 lb 11.958 oz BMI 28.9 BP 169/71 H Blood Pressure Location Rt brachial Position Sitting Pulse 75 Pulse Source Pulse Oximeter Intake Visit Reasons: Gastro-esophageal reflux disease Intake Note: Pt presents to the office today for GERD. Pt states she has GERD off and on and she states in unpredictable. Pt denies any N/V. Pt states she stopped the omeperazole because she believes it gave her diarrhea. Allergies ciprofloxacin [Cipro] Allergy (Unknown, Verified 06/02/23 13:23) Unknown pravastatin Allergy (Unknown, Verified 06/02/23 13:23) Unknown rosuvastatin [Crestor] Allergy (Unknown, Verified 06/02/23 13:23) leg cramps simvastatin Allergy (Unknown, Verified 06/02/23 13:23) Unknown HPI Gastro-esophageal reflux disease HPI Details 78-year-old female with past medical his tory of basal cell carcinoma, osteopenia, left breast CA, UTI, hypertension, hypercholesteremia, GERD, history of cholecystectomy left breast mastectomy is here today for initial consulta tion. Patient was sent to us by her PCP. Patient reports that she has been having epigastric discomfort postprandially and acid reflux. Patient reports occasional dyspepsia without dysphagia or odynophagia. Patient states that she started omeprazole, however after taking omeprazole she was having loose stools. Patient believes that this could be contributing to her taking omeprazole. Patient reports that occasionally she will have loose stools also depending on what she eats. Patient states that she feels like even though she goes to the bathroom she does not empty her bowels completely. Patient denies any nausea or vomiting. Denies any melena, hematochezia, unintentional weight loss or ribbon like stools. Patient denies any nausea or vomiting. Patient reports that she is not on any particular diet. [facility] Medical History Age-related osteoporosis without current pathological fracture Annual physical exam Radial scar of right breast Abnormal ultrasound of breast Breast density Vaginal wall prolapse Breast cancer, left Subclinical hypothyroidism Hip osteoarthritis Hypercholesterolemia Skin cancer, basal cell Peripheral neuropathy Osteopenia GERD (gastroesophageal reflux disease) Surgical History History of cataract surgery History of lumbar surgery History of left hip replacement History of tonsillectomy and adenoidectomy History of left mastectomy History of cholecystectomy Family History Father CVD (cardiovascular disease) Mother Uterine cancer Brother In good health Daughter In good health Brother Cancer Social History Housing: House Alcohol intake: current Patient Tobacco Use Status: Former Tobacco user Years Smoked: 37 years old e-Cigarette/Vaping Use: Never Used Second Hand Smoke Exposure: No service: No Current occupational status: retired Cognitive needs: No Hearing needs: No Vision needs: Yes Female Reproductive History Menstrual Age of Menarche: 11 Review of Systems Const Denies weight gain and Denies weight loss ENT Reports no additional complaints, Denies dysphagia and Denies odynophagia Card Reports no additional complaints Resp Reports no additional complaints GI Denies abdominal pain, Denies belching, Denies melena, Denies bloating, Denies change in bowel habits, Denies dysphagia, Denies excessive flatus, Denies dyspepsia, Reports heartburn, Denies diarrhea, Reports loose stools, Denies nausea, Denies odynophagia and Denies vomiting Reports no additional complaints Musc Reports no additional complaints Neuro Reports no additional complaints Psych Reports no additional complaints Endo Reports no additional complaints Physical Exam Vital Signs: Last Vital Signs Pulse 75 06/02/23 13:20 BP 169/71 H 06/02/23 13:20 BMI result Body Mass Index 28.9 Const General: healthy appearing, no acute distress and well developed Nutritional Appearance: well nourished Orientation/consciousness: patient oriented x3 HEENT Head: Yes normal to inspection, Yes normocephalic and Yes atraumatic Face and sinus: Yes normal facial exam Mouth: Normal oral and palatal mucosa present Throat: Yes posterior oropharynx normal, Yes tonsils normal and Yes uvula midline Eyes General: appearance normal, both eyes and all related structures Neck Neck: Yes normal visual inspection, Yes full ROM and Yes trachea midline Thyroid: Thyroid normal Resp Effort & Inspection: normal respiratory effort, able to speak in complete sentences, no tracheal deviation and symmetric chest movement Auscultation: clear to auscultation bilaterally Cardio Rate: regular rate GI Inspection: Yes normal to inspection and No distended Palpation (GI): Soft to palpation, not firm, nontender and No hepatosplenomegaly present Auscultation: normal bowel sounds General: Yes no CVA tenderness Back/Spine/Pelvis Back: no CVA tenderness Skin General skin exam: elasticity normal, turgor normal and dry skin Neuro General: patient oriented x3 Psych Appearance: grossly normal Mental Status: mental status grossly normal Assessment & Plan Assessment & Plan (1) Epigastric pain: Code(s): R10.13 - Epigastric pain (2) GERD (gastroesophageal reflux disease): Code(s): K21.9 - Gastro-esophageal reflux disease without esophagitis Qualifiers: Esophagitis presence: without esophagitis Qualified Code(s): K21.9 - Gastro-esophageal reflux disease without esophagitis (3) IBS (irritable bowel syndrome): Code(s): K58.9 - Irritable bowel syndrome without diarrhea Qualifiers: Irritable bowel syndrome type: with both diarrhea and constipation Qualified Code(s): K58.2 - Mixed irritable bowel syndrome (4) S/P cholecystectomy: Code(s): Z90.49 - Acquired absence of other specified parts of digestive tract Plan Will check for H pylori and treat empirically if positive. Will start patient on pantoprazole every morning. Patient continues to have occasional loose stools postprandially depending on what she eats. History of cholecystectomy this is most likely related to that, however we will check vitamin B12, folate, vitamin-D level. Occasional epigastric discomfort postprandially will check her lipase. Patient reports that her pain is in the upper abdomen for the most part. Patient reports that she is not feel like she completely empties her bowels even after having loose stools postprandially. Patient will be started on Citrucel to have her bulk her stools and we can add senna. Patient was encouraged to take 1-2 tablets every evening to help her evaluate her bowels better. Patient was also encouraged to increase fluid intake and activity to promote better bowel motility. Discussed with patient avoiding lactose. Low FODMAP diet discussed with patient. List of food that is recommended as well as list of food to avoid given to patient. I will see patient in 6 weeks. We will discuss going for upper endoscopy and colonoscopy. Patient will call us sooner if she will have any GI concerning symptoms. Patient is agreeable to this plan and verbalizes her understanding of instructions. She was given the opportunity to ask questions and all questions answered. Thank you for allowing me to participate in her care Orders: Orders H Pylori Breath Test 06/02/23 R10.13 - Epigastric pain Vitamin B12 and Folate 06/02/23 R19.7 - Diarrhea, unspecified Vitamin D 25-OH (D2 and D3) 06/02/23 E55.9 - Vitamin D deficiency, unspecified Lipase 06/02/23 R10.9 - Unspecified abdominal pain Medications: New methylcellulose (laxative) (Citrucel) take it with full glass of water 500 mg PO DAILY 30 tabs 2RF K59.00 - Constipation, unspecified pantoprazole take one tablet half an hour before breakfast 40 mg PO DAILY 30 tabs 2RF K21.9 - Gastro-esophageal reflux disease without esophagitis sennosides (Natural Senna Laxative) 8.6 mg PO BEDTIME 90 tabs 3RF constipation K59.00 - Constipation, unspecified Coding Level of Care Code New Pt Level 4 (37156) Diagnoses Epigastric pain R10.13 Gastroesophageal reflux disease without esophagitis K21.9 Esophagitis presence: without esophagitis Irritable bowel syndrome with both constipation and diarrhea K58.2 Irritable bowel syndrome type: with both diarrhea and constipation S/P cholecystectomy Z90.49 Time Spent (min) 45 Comment 30 minutes spent with patient and additional 15 minutes spent reviewing her records
== END 2023-06-02 14:20 | disposition home or self-care (01) ==
PROVIDERS: Visit Provider Nurse Practitioner Family
DX: R10.13 Epigastric pain (principal); K21.9 Gastro-esophageal reflux disease without esophagitis; K58.2 Mixed irritable bowel syndrome; Z90.49 Acquired absence of other specified parts of digestive tract
CPT/HCPCS: 99204

== ENCOUNTER 2023-06-02 13:11 | Outpatient (REF) | payer MEDICARE, OTHER, SELFPAY ==
[2023-06-03 13:44] LABS: H Pylori Breath Test Negative (Negative)
== END 2023-06-02 13:12 | disposition home or self-care (01) ==
LOC: HO.LAB 13:11
PROVIDERS: Visit Provider Nurse Practitioner Family
DX: R10.13 Epigastric pain (principal); K21.9 Gastro-esophageal reflux disease without esophagitis; K58.2 Mixed irritable bowel syndrome; Z90.49 Acquired absence of other specified parts of digestive tract
CPT/HCPCS: 83013; 99202

== ENCOUNTER 2023-06-29 09:12 | Outpatient (REF) | payer MEDICARE, OTHER, SELFPAY ==
--- NOTE | 2023-06-29 10:34 | PFT_ITS ---
Flows: FEV1: 72 % of predicted at 1.5 L FVC: 95 % of predicted at 2.71 L FEV1/FVC: 57 % Bronchodilator response: Present Volumes: Total lung capacity: 91 % of predicted at 4.88 L Residual volume: 107 % of predicted at 2.57 L Slow vital capacity: 80 % of predicted at 2.31 L Expiratory reserve volume: 54 % of predicted at 0.40 L Diffusion capacity: Mild decreased, corrects to normal after adjustment for alveolar ventilation. Impression: Moderate obstructive ventilatory defect with positive bronchodilator response. Decreased diffusion capacity suggests emphysema. MTDD
[2023-06-29 11:30] VITALS: PULSE 80; RESP 20; O2SAT 95
== END 2023-06-29 09:13 | disposition home or self-care (01) ==
LOC: HO.RESP 09:12
PROVIDERS: Visit Provider Internal Medicine
DX: R06.02 Shortness of breath (principal)
CPT/HCPCS: 94640

== ENCOUNTER → 2023-06-29 10:34 | Outpatient (BNV) | payer MEDICARE, OTHER, SELFPAY | PROVIDERS: Visit Provider Internal Medicine Pulmonary Disease | DX: R06.02 Shortness of breath (principal) | CPT/HCPCS: 94060; 94727; 94729 ==

== ENCOUNTER 2023-07-17 08:11 | Outpatient (REF) | payer MEDICARE, OTHER, SELFPAY ==
[2023-07-17 12:24] LABS: Lipase 27 U/L (8-78)
[2023-07-17 12:57] LABS: Folate 5.7 ng/mL (> or = 4.0); Vitamin B12 282 pg/mL (200-900)
[2023-07-22 13:18] LABS: Vitamin D 25-OH, D2 <4 ng/mL; Vitamin D 25-OH, D3 27 ng/mL; Vitamin D 25-OH, Total 27 ng/mL (30-100)
== END 2023-07-17 08:12 | disposition home or self-care (01) ==
LOC: HO.HMGCLDS 08:11
PROVIDERS: PCP Internal Medicine; Visit Provider Nurse Practitioner Family
DX: R10.9 Unspecified abdominal pain (principal); E55.9 Vitamin D deficiency, unspecified; R19.7 Diarrhea, unspecified
CPT/HCPCS: 36415; 82306; 82607; 82746; 83690

== ENCOUNTER 2023-07-19 08:45 | Outpatient (AMB) | payer MEDICARE, OTHER, SELFPAY ==
--- NOTE | 2023-07-19 08:49 | MHC.OFFVIS ---
Intake Vital Signs 07/19/23 08:51 Height 5 ft 7 in Weight 187 lb BMI 29.3 BP 147/64 H Blood Pressure Location Lt brachial Position Sitting Pulse 75 Intake Visit Reasons: 6 week follow up Intake Note: Abigail presents in the office as a 6 week follow up. CC: She states that she has not been taking her laxative because she feels it is too much with the other medications. She states that her stomach has been a lot better since she stopped taking it. Customer Experience Professional Required: No Allergies ciprofloxacin [Cipro] Allergy (Unknown, Verified 07/19/23 08:51) Unknown pravastatin Allergy (Unknown, Verified 07/19/23 08:51) Unknown rosuvastatin [Crestor] Allergy (Unknown, Verified 07/19/23 08:51) leg cramps simvastatin Allergy (Unknown, Verified 07/19/23 08:51) Unknown HPI 6 week follow up HPI Details LAST VISIT Epigastric pain GERD (gastroesophageal reflux disease) IBS (irritable bowel syndrome) S/P cholecystectomy Plan Will check for H pylori and treat empirically if positive. Will start patient on pantoprazole every morning. Patient continues to have occasional loose stools postprandially depending on what she eats. History of cholecystectomy this is most likely related to that, however we will check vitamin B12, folate, vitamin-D level. Occasional epigastric discomfort postprandially will check her lipase. Patient reports that her pain is in the upper abdomen for the most part. Patient reports that she is not feel like she completely empties her bowels even after having loose stools postprandially. Patient will be started on Citrucel to have her bulk her stools and we can add senna. Patient was encouraged to take 1-2 tablets every evening to help her evaluate her bowels better. Patient was also encouraged to increase fluid intake and activity to promote better bowel motility. Discussed with patient avoiding lactose. Low FODMAP diet discussed with patient. List of food that is recommended as well as list of food to avoid given to patient. I will see patient in 6 weeks. We will discuss going for upper endoscopy and colonoscopy. Patient will call us sooner if she will have any GI concerning symptoms. Patient is agreeable to this plan and verbalizes her understanding of instructions. She was given the opportunity to ask questions and all questions answered. ? Thank you for allowing me to participate in her care Orders Orders H Pylori Breath Test 06/02/23 R10.13 Vitamin B12 and Folate 06/02/23 R19.7 Vitamin D 25-OH (D2 and D3) 06/02/23 E55.9 Lipase 06/02/23 R10.9 Medications New methylcellulose (laxative) (Citrucel) take it with full glass of water 500 mg PO DAILY 30 tabs 2RF K59.00 pantoprazole take one tablet half an hour before breakfast 40 mg PO DAILY 30 tabs 2RF K21.9 sennosides (Natural Senna Laxative) 8.6 mg PO BEDTIME 90 tabs 3RF constipation K59.00 TODAY'S VISIT: Patient is here today for follow-up and to discuss lab results. Patient reports that she has been feeling better since last time I have seen her. She was unable to take Citrucel faithfully every day as she takes her regular morning medications. Many times patient forgot to take her Citrucel so she stopped. Patient reports that she is moving her bowels well without any issues. Drinking plenty fluids. Increase dietary fiber. Patient states that pantoprazole has been working for her. Patient denies any dyspepsia, dysphagia or odynophagia. Reports to be doing fairly well. Patient had colonoscopy in September of 2013 that showed 1 tubular adenoma. Patient is going to [place] in couple weeks and will be returning in September and we will send patient for colonoscopy then. Patient denies any melena, hematochezia, unintentional weight loss or ribbon like stools. [facility]LY [facility] Medical History Hx of basal cell carcinoma Age-related osteoporosis without current pathological fracture Annual physical exam Radial scar of right breast Abnormal ultrasound of breast Breast density Vaginal wall prolapse Breast cancer, left Subclinical hypothyroidism Hip osteoarthritis Hypercholesterolemia Skin cancer, basal cell Peripheral neuropathy Osteopenia GERD (gastroesophageal reflux disease) Surgical History History of cataract surgery History of lumbar surgery History of left hip replacement History of tonsillectomy and adenoidectomy History of left mastectomy History of cholecystectomy Family History Father CVD (cardiovascular disease) Mother Uterine cancer Brother In good health Daughter In good health Brother Cancer Social History Housing: House Alcohol intake: current Patient Tobacco Use Status: Former Tobacco user Years Smoked: 37 years old e-Cigarette/Vaping Use: Never Used Second Hand Smoke Exposure: No service: No Current occupational status: retired Cognitive needs: No Hearing needs: No Vision needs: Yes Female Reproductive History Menstrual Age of Menarche: 11 Review of Systems Const Denies weight gain and Denies weight loss ENT Reports no additional complaints, Denies dysphagia and Denies odynophagia Card Reports no additional complaints Resp Reports no additional complaints GI Denies abdominal pain, Denies belching, Denies melena, Denies bloating, Denies change in bowel habits, Denies dysphagia, Denies excessive flatus, Denies dyspepsia, Denies heartburn, Denies diarrhea, Denies loose stools, Denies nausea, Denies odynophagia and Denies vomiting Musc Reports no additional complaints Neuro Reports no additional complaints Psych Reports no additional complaints Endo Reports no additional complaints Physical Exam Vital Signs: Last Vital Signs Pulse 75 07/19/23 08:51 BP 147/64 H 07/19/23 08:51 BMI result Body Mass Index 29.3 Const General: healthy appearing, no acute distress and well developed Nutritional Appearance: well nourished Orientation/consciousness: patient oriented x3 Resp Effort & Inspection: normal respiratory effort, able to speak in complete sentences, no tracheal deviation and symmetric chest movement Auscultation: clear to auscultation bilaterally Cardio Rate: regular rate GI Inspection: Yes normal to inspection and No distended Palpation (GI): Soft to palpation, not firm, nontender and No hepatosplenomegaly present Auscultation: normal bowel sounds General: Yes no CVA tenderness Back/Spine/Pelvis Back: no CVA tenderness Skin General skin exam: elasticity normal, turgor normal and dry skin Neuro General: patient oriented x3 Psych Appearance: grossly normal Mental Status: mental status grossly normal Results Reviewed Results Reviewed: Laboratory Tests 06/02/23 07/17/23 14:06 08:17 Lipase 27 Vitamin B12 282 H. pylori Breath Test Negative Assessment & Plan Assessment & Plan (1) GERD (gastroesophageal reflux disease): Code(s): K21.9 - Gastro-esophageal reflux disease without esophagitis Qualifiers: Esophagitis presence: without esophagitis Qualified Code(s): K21.9 - Gastro-esophageal reflux disease without esophagitis (2) Epigastric pain: Code(s): R10.13 - Epigastric pain (3) IBS (irritable bowel syndrome): Code(s): K58.9 - Irritable bowel syndrome without diarrhea Qualifiers: Irritable bowel syndrome type: without diarrhea Qualified Code(s): K58.9 - Irritable bowel syndrome without diarrhea (4) S/P cholecystectomy: Code(s): Z90.49 - Acquired absence of other specified parts of digestive tract Plan Patient can continue high-fiber diet. Patient was encouraged to increase fluid intake and activity to promote better bowel motility. Patient can continue pantoprazole half an hour before breakfast. Discussed with patient avoiding dietary triggers and late night snacking. Staying upright for minimum 3 hours after meals discussed with patient. Patient is leaving for [place] soon and will be returning in September. Patient will be sent for colonoscopy and if she will continue to have epigastric pain, reflux, dyspepsia patient will be sent for upper endoscopy as well. Patient is agreeable to this plan and verbalizes understanding of instructions. She was given the opportunity to ask questions and all questions answered. Thank you for allowing me to participate in her care Medications: Refilled pantoprazole take one tablet half an hour before breakfast 40 mg PO DAILY 90 tabs 2RF K21.9 - Gastro-esophageal reflux disease without esophagitis Coding Level of Care Code Est Pt Level 4 (72093) Diagnoses Gastroesophageal reflux disease without esophagitis K21.9 Esophagitis presence: without esophagitis Epigastric pain R10.13 Irritable bowel syndrome without diarrhea K58.9 Irritable bowel syndrome type: without diarrhea S/P cholecystectomy Z90.49 Time Spent (min) 35 Comment 20 minutes spent with patient and additional 15 minutes spent reviewing her records
[2023-07-19 08:51] VITALS: BP 147/64; PULSE 75; BMI 29.3
== END 2023-07-19 09:30 | disposition home or self-care (01) ==
PROVIDERS: Visit Provider Nurse Practitioner Family
DX: K21.9 Gastro-esophageal reflux disease without esophagitis (principal); R10.13 Epigastric pain; K58.9 Irritable bowel syndrome, unspecified; Z90.49 Acquired absence of other specified parts of digestive tract
CPT/HCPCS: 99214

== ENCOUNTER → 2023-07-19 08:45 | Outpatient (BNVA) | payer MEDICARE, OTHER, SELFPAY | PROVIDERS: Visit Provider Nurse Practitioner Family | DX: K21.9 Gastro-esophageal reflux disease without esophagitis (principal); K58.9 Irritable bowel syndrome, unspecified; R10.13 Epigastric pain; Z90.49 Acquired absence of other specified parts of digestive tract | CPT/HCPCS: 99212 ==

== ENCOUNTER 2023-07-31 14:17 | Outpatient (AMB) | payer MEDICARE, OTHER, SELFPAY ==
[2023-07-31 14:20] VITALS: BP 132/62; PULSE 69; O2SAT 98; BMI 29.1
--- NOTE | 2023-07-31 14:20 | A.OFFPC_ITS ---
Vital Signs 07/31/23 14:20 Height 5 ft 7 in Weight 186 lb BMI 29.1 BP 132/62 Blood Pressure Location Lt brachial Position Sitting Pulse 69 Pulse Source Pulse Oximeter Pulse Oximetry (%) 98 Oxygen Delivery Method Room Air Intake Visit Reasons: sobon exertion, GERD, HTN Allergies ciprofloxacin [Cipro] Allergy (Unknown, Verified 07/31/23 14:21) Unknown pravastatin Allergy (Unknown, Verified 07/31/23 14:21) Unknown rosuvastatin [Crestor] Allergy (Unknown, Verified 07/31/23 14:21) leg cramps simvastatin Allergy (Unknown, Verified 07/31/23 14:21) Unknown Medication List - Last Reconciled 07/31/23 by Sejal Stern MD albuterol sulfate 90 mcg/actuation (Ventolin HFA) 2 puffs inhalation Q6H PRN amlodipine 2.5 mg PO DAILY calcium carbonate-vitamin D3 600 mg-5 mcg (200 unit) (Calcium 600 + D(3)) 1 tab PO DAILY celecoxib 200 mg PO DAILY cholecalciferol (vitamin D3) 50 mcg PO DAILY ezetimibe 10 mg PO DAILY gabapentin 100 mg PO BEDTIME methylcellulose (laxative) (Citrucel) 500 mg PO DAILY multivitamin 1 tab PO DAILY pantoprazole 40 mg PO DAILY sennosides (Natural Senna Laxative) 8.6 mg PO BEDTIME Tobacco use date assessed: 07/31/23 Fall risk assessment: No Falls in past year Last assessed Fall Risk: 07/31/23 Dental Screening Dental Screen Date: 07/31/23 Did you have a dental visit in the last 12 months?: Yes Did you have a dental problem in the last 6 months where you did not have access to dental care?: No Was dental information given to patient?: Patient has dentist HPI sobon exertion, GERD, HTN HPI Details 78-year-old overweight female with a his tory of left breast cancer hypertension hypercholesterolemia GERD last seen in April 2023. Patient's mammogram is up-to-date January 2023 bone density February 2022. Patient follows up with Gastroenterology GERD, IBS advised high-fiber diet pantoprazole and GERD plan patient complained of shortness of breath PFT done showing moderate obstructive ventilatory defect with positive bronchodilator response diagnosis of emphysema PFSH Medical History Hx of basal cell carcinoma Age-related osteoporosis without current pathological fracture Annual physical exam Radial scar of right breast Abnormal ultrasound of breast Breast density Vaginal wall prolapse Breast cancer, left Subclinical hypothyroidism Hip osteoarthritis Hypercholesterolemia Skin cancer, basal cell Peripheral neuropathy Osteopenia GERD (gastroesophageal reflux disease) Surgical History History of cataract surgery History of lumbar surgery History of left hip replacement History of tonsillectomy and adenoidectomy History of left mastectomy History of cholecystectomy Family History Father CVD (cardiovascular disease) Mother Uterine cancer Brother In good health Daughter In good health Brother Cancer Social History Housing: House Alcohol intake: current Patient Tobacco Use Status: Former Tobacco user Tobacco use type: Cigarette Years Smoked: 37 years old e-Cigarette/Vaping Use: Never Used Second Hand Smoke Exposure: No service: No Current occupational status: retired Cognitive needs: No Hearing needs: No Vision needs: Yes Female Reproductive History Menstrual Age of Menarche: 11 Questionnaire PHQ-9 Over the last 2 weeks, how often have you been bothered by any of the following problems? 1. Little interest or pleasure in doing things: not at all 2. Feeling down, depressed, or hopeless: not at all 3. Trouble falling or staying asleep, or sleeping too much: not at all 4. Feeling tired or having little energy: not at all 5. Poor appetite or overeating: not at all 6. Feeling bad about yourself - or that you are a failure or have let yourself or your family down: not at all 7. Trouble concentrating on things, such as reading the newspaper or watching television: not at all 8. Moving or speaking so slowly that other people could have noticed. Or the opposite - being so fidgety or restless that you have been moving around a lot more than usual: not at all 9. Thoughts that you would be better off or of hurting yourself in some way: not at all Total score: 0 Depression Screening Interpretation: Negative Depression Screening Done: Yes Source: Developed by Drs. Lennox L. DodieLulu omta Kurt Kroenke and colleagues, with an educational jessie from [employer] Thrive Questionnaire Date Thrive assessed: 07/31/23 I am a: Patient What is your living situation today?: I have a steady place to live Within the past 12 months, did the food you bought not last and you didn't have the money to get more?: Never true Within the past 12 months, did you worry whether your food would run out before you got money to buy more?: Never true Do you have trouble paying for medicines?: No Do you have trouble getting transportation to medical appointments?: No Do you have trouble paying your heating and electricity bill?: No Do you have trouble taking care of your child, family member or friend?: No Do you have trouble with day-to-day activities such as bathing, preparing meals, shopping, managing finances, etc.?: No Are you currently unemployed and looking for a job?: No Are you interested in more education?: No Currently or been in a relationship where the following occur: no concerns reported THRIVE Score: 0 AUDIT C Alcohol Use Questionnaire (AUDIT-C) 1. How often do you have a drink containing alcohol?: 2-3 times a week 3. How often do you have six or more drinks on one occasion?: Never Total Score: 3 SERG-7 AMB Questionnaire SERG-7 Date SERG - 7 assessed: 07/31/23 Feeling nervous, anxious, or on edge: 0 = Not at all Not being able to stop or control worryin = Not at all Worrying too much about different things: 0 = Not at all Trouble relaxin = Not at all Being so restless that it is hard to sit still: 0 = Not at all Becoming easily annoyed or irritable: 0 = Not at all Feeling afraid as if something awful might happen: 0 = Not at all Total SERG-7 score (0-4 normal; 5-9 mild; 10-14 moderate; 15-21 severe): 0 Source: Developed by Lulu Zamora Kurt Kroenke and colleagues, with an educational jessie from [employer] Physical exam (Primary Care) Vital Signs: Last Vital Signs Pulse 69 07/31/23 14:20 BP 132/62 07/31/23 14:20 Pulse Ox 98 07/31/23 14:20 Oxygen Delivery Method Room Air 07/31/23 14:20 BMI result Body Mass Index 29.1 Tobacco/Smoking Status: Tobacco use Status Tobacco use date assessed 07/31/23 07/31/23 14:22 Patient Tobacco Use Status Former Tobacco user 07/31/23 14:22 Tobacco use type Cigarette 07/31/23 14:22 e-Cigarette/Vaping Use Never Used 07/31/23 14:22 PHQ-9: PHQ-9 Score PHQ-9: Total score 0 07/31/23 14:28 Depression Screening Interpretation: Negative Thrive Assessment: Date of Thrive Assessment Date Thrive assessed 07/31/23 07/31/23 14:22 Currently or been in a relationship where the following occur: no concerns reported Const General: alert; No acute distress Eyes Conjunctivae: conjunctivae normal Resp Auscultation: clear to auscultation bilaterally Cardio Rate: regular rate Rhythm: regular rhythm GI Inspection: Yes normal to inspection Extrem General: Yes normal to inspection and No edema Assessment and Plan Assessment & Plan (1) COPD (chronic obstructive pulmonary disease): Comment: PFT June 2023Moderate obstructive ventilatory defect with positive bronchodilator response. Decreased diffusion capacity suggests emphysema Code(s): J44.9 - Chronic obstructive pulmonary disease, unspecified Plan: Patient has been placed on albuterol inhaler. (2) Breast cancer, left: Comment: 1991 Code(s): C50.912 - Malignant neoplasm of unspecified site of left female breast Qualifiers: Breast location: unspecified site of breast Estrogen receptor status: unspecified Patient sex: female Qualified Code(s): C50.912 - Malignant neoplasm of unspecified site of left female breast Plan: Up-to-date with mammogram (3) Hypertension: Code(s): I10 - Essential (primary) hypertension Qualifiers: Hypertension type: essential hypertension Qualified Code(s): I10 - Essential (primary) hypertension Plan: Continue with blood pressure medication. Decrease salt intake and exercise on amlodipine 2.5 mg once a day (4) Hypercholesterolemia: Code(s): E78.00 - Pure hypercholesterolemia, unspecified Plan: Avoid fried foods, chicken skin, eggs, butter margarine, pastries and meat. Be it pork or beef they have a lot of cholesterol LDL goal of less than 130 and triglyceride of less than 150. Patient on Zetia 10 mg once a day December 2022 last blood work (5) GERD (gastroesophageal reflux disease): Code(s): K21.9 - Gastro-esophageal reflux disease without esophagitis Qualifiers: Esophagitis presence: without esophagitis Qualified Code(s): K21.9 - Gastro-esophageal reflux disease without esophagitis Plan: Avoid the foods that causes that usually spicy foods, tomato products, juices, coffee, soda and foods that your sensitive to. After eating do not lie down, allow 3-4 hours before in lie down. And keep the head of bed above 30 degrees to avoid the acid from going up. On pantoprazole Orders: Orders Comprehensive Met. Panel 5 Months I10 - Essential (primary) hypertension Free T4 (Free Thyroxine) 5 Months I10 - Essential (primary) hypertension Thyroid Stimulating Hormone 5 Months I10 - Essential (primary) hypertension Complete Blood Count Auto Diff 5 Months I10 - Essential (primary) hypertension Lipid Panel 5 Months E78.00 - Pure hypercholesterolemia, unspecified, I10 - Essential (primary) hypertension Vitamin B12 and Folate 5 Months I10 - Essential (primary) hypertension Vitamin D 25-OH Total 5 Months I10 - Essential (primary) hypertension Medications: Refilled gabapentin 100 mg PO BEDTIME 90 caps 3RF I10 - Essential (primary) hypertension celecoxib 200 mg PO DAILY 90 caps 3RF I10 - Essential (primary) hypertension Coding Level of Care Code Est Pt Level 4 (31246) Diagnoses COPD (chronic obstructive pulmonary disease) J44.9 Malignant neoplasm of left female breast, unspecified estrogen receptor status, unspecified site of breast C50.912 Breast location: unspecified site of breast Estrogen receptor status: unspecified Patient sex: female Essential hypertension I10 Hypertension type: essential hypertension Hypercholesterolemia E78.00 Gastroesophageal reflux disease without esophagitis K21.9 Esophagitis presence: without esophagitis
== END 2023-07-31 14:54 | disposition home or self-care (01) ==
PROVIDERS: Visit Provider Internal Medicine
DX: J44.9 Chronic obstructive pulmonary disease, unspecified (principal); C50.912 Malignant neoplasm of unspecified site of left female breast; I10 Essential (primary) hypertension; E78.00 Pure hypercholesterolemia, unspecified; K21.9 Gastro-esophageal reflux disease without esophagitis
CPT/HCPCS: 99214

== ENCOUNTER 2023-08-07 14:37 | Outpatient (AMB) | payer MEDICARE, OTHER, SELFPAY ==
[2023-08-07 15:31] VITALS: BP 136/74; PULSE 70; TEMP 36.6; O2SAT 98; BMI 29.1
--- NOTE | 2023-08-07 15:31 | AM.OFFWIN_ITS ---
Intake Vital Signs 08/07/23 15:31 Height 5 ft 7 in Weight 186 lb BMI 29.1 BP 136/74 Blood Pressure Location Lt brachial Position Sitting Pulse 70 Pulse Source Pulse Oximeter Temp 97.8 F Temp Source Oral Pulse Oximetry (%) 98 Intake Visit Reasons: EP UTI Intake Note: pt is here for c/o possible uti, states shes having dysuria since yesterday Patient Tobacco Use Status: Former Tobacco user Allergies ciprofloxacin [Cipro] Allergy (Unknown, Verified 08/07/23 15:44) Unknown pravastatin Allergy (Unknown, Verified 08/07/23 15:44) Unknown rosuvastatin [Crestor] Allergy (Unknown, Verified 08/07/23 15:44) leg cramps simvastatin Allergy (Unknown, Verified 08/07/23 15:44) Unknown Medication List - Last Reconciled 08/07/23 by Solis Grant MD albuterol sulfate 90 mcg/actuation (Ventolin HFA) 2 puffs inhalation Q6H PRN amlodipine 2.5 mg PO DAILY calcium carbonate-vitamin D3 600 mg-5 mcg (200 unit) (Calcium 600 + D(3)) 1 tab PO DAILY celecoxib 200 mg PO DAILY cholecalciferol (vitamin D3) 50 mcg PO DAILY ezetimibe 10 mg PO DAILY gabapentin 100 mg PO BEDTIME methylcellulose (laxative) (Citrucel) 500 mg PO DAILY multivitamin 1 tab PO DAILY pantoprazole 40 mg PO DAILY sennosides (Natural Senna Laxative) 8.6 mg PO BEDTIME Do you need a note to return to daycare/school/sports/work: No HPI EP UTI HPI Details Patient presents for a sick visit. Reports symptoms of increased frequency of urination, burning on urination and discomfort in the suprapubic area. Symptoms started in the past few days. No fevers or chills. No nausea or vomiting. [facility] Medical History Hx of basal cell carcinoma Age-related osteoporosis without current pathological fracture Annual physical exam Radial scar of right breast Abnormal ultrasound of breast Breast density Vaginal wall prolapse Breast cancer, left Subclinical hypothyroidism Hip osteoarthritis Hypercholesterolemia Skin cancer, basal cell Peripheral neuropathy Osteopenia GERD (gastroesophageal reflux disease) Surgical History History of cataract surgery History of lumbar surgery History of left hip replacement History of tonsillectomy and adenoidectomy History of left mastectomy History of cholecystectomy Family History Father CVD (cardiovascular disease) Mother Uterine cancer Brother In good health Daughter In good health Brother Cancer Social History Housing: House Alcohol intake: current Patient Tobacco Use Status: Former Tobacco user Tobacco use type: Cigarette Years Smoked: 37 years old e-Cigarette/Vaping Use: Never Used Second Hand Smoke Exposure: No service: No Current occupational status: retired Cognitive needs: No Hearing needs: No Vision needs: Yes Female Reproductive History Menstrual Age of Menarche: 11 Physical Exam Vital Signs: Last Vital Signs Temp 97.8 F 08/07/23 15:31 Pulse 70 08/07/23 15:31 BP 136/74 08/07/23 15:31 Pulse Ox 98 08/07/23 15:31 BMI result Body Mass Index 29.1 Other: No CVA tenderness. No suprapubic tenderness. Results AMB Urinalysis, Automated UA Leukoctes 125 Wilber/uL Last Edit by Nicola Matt CMA on 08/07/23 15:3 8 UA Nitrite Positive Last Edit by Nicola Matt CMA on 08/07/23 15:38 UA Urobilinogen 0.2 mg/dL Last Edit by Nicola Matt CMA on 08/07/23 15 :38 UA Protein 15 mg/dL Last Edit by Nicola Matt CMA on 08/07/23 15:38 UA pH 5.0 Last Edit by Nicola Matt CMA on 08/07/23 15:38 UA Blood 10 Jason/uL Last Edit by Nicola Matt CMA on 08/07/23 15:38 UA Specific [place] 1.030 Last Edit by Nicola Matt CMA on 08/07/23 15:38 UA Ketone Positive Last Edit by Nicola Matt CMA on 08/07/23 15:38 UA Bilirubin 0 mg/dL Last Edit by Nicola Matt CMA on 08/07/23 15:38 UA Glucose 0 mg/dL Last Edit by Nicola Matt CMA on 08/07/23 15:38 Results Reviewed Results Reviewed: Laboratory Last Values Urine pH (Auto) 5.0 08/07/23 15:37 Specific [place] (Auto) 1.030 08/07/23 15:37 Urine Protein (Auto) 15 mg/dL 08/07/23 15:37 Glucose (UA)(Auto) 0 mg/dL 08/07/23 15:37 Urine Ketones (Auto) Positive 08/07/23 15:37 Urine Blood (Auto) 10 Jason/uL 08/07/23 15:37 Urine Nitrite (Auto) Positive 08/07/23 15:37 Urine Bilirubin (Auto) 0 mg/dL 08/07/23 15:37 Urine Urobilinogen (Auto) 0.2 mg/dL 08/07/23 15:37 Leukocyte Esterase (Auto) 125 Wilber/uL 08/07/23 15:37 Assessment & Plan Assessment & Plan (1) UTI (urinary tract infection): Code(s): N39.0 - Urinary tract infection, site not specified Plan: Take antibiotics and Pyridium as directed. Increase fluid intake. If symptoms of burning persist, new onset of fever or lower back pain, to follow-up at the clinic. Orders: Orders AMB Urinalysis Automated Today Z13.9 - Encounter for screening, unspecified Coding Level of Care Code Est Pt Level 3 (81343) Diagnoses UTI (urinary tract infection) N39.0
== END 2023-08-07 16:11 | disposition home or self-care (01) ==
PROVIDERS: Visit Provider Internal Medicine
DX: N39.0 Urinary tract infection, site not specified (principal); R35.0 Frequency of micturition
CPT/HCPCS: 81003; 99213

== ENCOUNTER 2024-01-22 10:31 | Outpatient (AMB) | payer MEDICARE, OTHER, SELFPAY ==
[2024-01-22 11:55] VITALS: BP 114/80; PULSE 74; TEMP 36.5; O2SAT 97; BMI 28.8
--- NOTE | 2024-01-22 11:55 | MHC.OFFWIV ---
Intake Vital Signs 01/22/24 11:55 Height 5 ft 7 in Weight 184 lb BMI 28.8 BP 114/80 Blood Pressure Location Rt brachial Position Sitting Pulse 74 Pulse Source Pulse Oximeter Temp 97.7 F Pulse Oximetry (%) 97 Oxygen Delivery Method Room Air Intake Visit Reasons: Possible UTI Patient Tobacco Use Status: Former Tobacco user Allergies ciprofloxacin [Cipro] Allergy (Unknown, Verified 01/22/24 11:55) Unknown pravastatin Allergy (Unknown, Verified 01/22/24 11:55) Unknown rosuvastatin [Crestor] Allergy (Unknown, Verified 01/22/24 11:55) leg cramps simvastatin Allergy (Unknown, Verified 01/22/24 11:55) Unknown Do you need a note to return to daycare/school/sports/work: No HPI HPI Comments History of Present Illness Details Patient presents to urgent care today for complaints of UTI symptoms for last 4 days. Endorses burning with urination, increased frequency and suprapubic abdominal pain. Denies back pain, hematuria, fevers, chills or vomiting. Denies nausea, vomiting, diarrhea She endorses a history of UTIs, states this feels the same. [facility] Medical History Hx of basal cell carcinoma Age-related osteoporosis without current pathological fracture Annual physical exam Radial scar of right breast Abnormal ultrasound of breast Breast density Vaginal wall prolapse Breast cancer, left Subclinical hypothyroidism Hip osteoarthritis Hypercholesterolemia Skin cancer, basal cell Peripheral neuropathy Osteopenia GERD (gastroesophageal reflux disease) Surgical History History of cataract surgery History of lumbar surgery History of left hip replacement History of tonsillectomy and adenoidectomy History of left mastectomy History of cholecystectomy Family History Father CVD (cardiovascular disease) Mother Uterine cancer Brother In good health Daughter In good health Brother Cancer Social History Housing: House Alcohol intake: current Patient Tobacco Use Status: Former Tobacco user Tobacco use type: Cigarette Years Smoked: 37 years old e-Cigarette/Vaping Use: Never Used Second Hand Smoke Exposure: No service: No Current occupational status: retired Cognitive needs: No Hearing needs: No Vision needs: Yes Female Reproductive History Menstrual Age of Menarche: 11 Review of Systems Const All systems reviewed & are unremarkable except as noted in HPI and below Physical Exam Vital Signs: Last Vital Signs Temp 97.7 F 01/22/24 11:55 Pulse 74 01/22/24 11:55 BP 114/80 01/22/24 11:55 Pulse Ox 97 01/22/24 11:55 Oxygen Delivery Method Room Air 01/22/24 11:55 BMI result Body Mass Index 28.8 General: awake, alert, oriented. Answers questions appropriately. Fully engaged in examination. Skin: warm, dry, intact HEENT: Normocephalic. Hearing intact. Cardiac: External chest normal in appearance. Respiratory: No cough, audible wheezing or stridor. Abdomen: without gross distension. soft, nontender. no guarding. no CVA tenderness MS: No obvious swelling or deformities. Neurological: Oriented to person, place, time and situation. Thought process intact. No gait abnormalities appreciated. Psychiatric: Appropriate mood and affect. Good judgment and insight. Results AMB Urinalysis, Automated UA Leukoctes 70 Wilber/uL Last Edit by Juan Mayer CMA on 01/22/24 12:33 UA Nitrite Negative Last Edit by Juan Mayer CMA on 01/22/24 12:33 UA Urobilinogen 0.2 mg/dL Last Edit by Juan aMyer CMA on 01/22/24 12:33 UA Protein 30 mg/dL Last Edit by Juan Mayer CMA on 01/22/24 12:33 UA pH 5.5 Last Edit by Juan Mayer CMA on 01/22/24 12:33 UA Blood 0 Jason/uL Last Edit by Juan Mayer CMA on 01/22/24 12:33 UA Specific [place] 1.030 Last Edit by Juan Mayer CMA on 01/22/24 12:33 UA Ketone Negative Last Edit by Juan Mayer CMA on 01/22/24 12:33 UA Bilirubin 0 mg/dL Last Edit by Juan Mayer CMA on 01/22/24 12:33 UA Glucose 0 mg/dL Last Edit by Juan Mayer CMA on 01/22/24 12:33 Results Reviewed Results Reviewed: UA reviewed: 1+ leuks, 1+ protein. Negative nitrites Assessment & Plan Assessment & Plan (1) UTI (urinary tract infection): Code(s): N39.0 - Urinary tract infection, site not specified Plan Bactrim DS, 1 tablet twice daily x7 days Patient declined Pyridium Increase fluid intake. Return to clinic for new fever or back pain or if symptoms persist. Orders: Orders AMB Urinalysis Automated Today Z13.9 - Encounter for screening, unspecified Medications: New sulfamethoxazole-trimethoprim 800-160 mg (Bactrim DS) 1 tab PO BID 14 tabs 0RF Coding Level of Care Code Est Pt Level 3 (09809) Diagnoses UTI (urinary tract infection) N39.0
== END 2024-01-22 12:30 | disposition home or self-care (01) ==
PROVIDERS: Visit Provider Registered Nurse Emergency
DX: Z13.9 Encounter for screening, unspecified (principal); N39.0 Urinary tract infection, site not specified
CPT/HCPCS: 81003; 99213

== ENCOUNTER 2024-02-07 07:39 | Outpatient (REF) | payer MEDICARE, OTHER, SELFPAY ==
[2024-02-07 10:30] LABS: MANUAL DIFF FLAG NO
[2024-02-07 10:37] LABS: Basophils Absolute Auto 0.1 X10*3/uL (0.0-0.2); Basophils Percent Auto 1.2 % (0-2); Eosinophils Absolute Auto 0.4 X10*3/uL (0.0-0.4); Eosinophils Percent Auto 5.4 % (0-4); Hematocrit 38.9 % (37.0-47.0); Hemoglobin 13.1 g/dl (12.0-16.0); Imm Gran Abs Auto 0.02 X10*3/uL (0.00-0.03); Imm Gran Pct Auto 0.3 % (0.0-0.4); Lymphocytes Percent Auto 29.6 % (20-40); Mean Corpuscular HGB Conc 33.7 g/dl (31.0-35.0); Mean Corpuscular Hemoglobin 31.1 pg (27.0-33.0); Mean Corpuscular Volume 92.4 fL (80.0-98.0); Monocytes Absolute Auto 0.5 X10*3/uL (0.1-1.2); Monocytes Percent Auto 7.6 % (2-11); Neutrophils Absolute Auto 3.8 x10*3/uL (2.0-8.3); Neutrophils Percent Auto 55.9 % (45-73); Platelet Count 436 X10*3/uL (160-400); Red Blood Count 4.21 X10*6/uL (4.20-5.50); Red Cell Distribution Width 13.6 % (11.0-16.0); White Blood Count 6.9 X10*3/uL (4.8-10.8)
[2024-02-07 10:56] LABS: Alanine Aminotransferase 16 U/L (0-31); Albumin Level 4.1 g/dL (3.5-5.0); Alkaline Phosphatase 60 U/L (39-117); Anion Gap 12 (12-20); Aspartate Amino Transferase 22 U/L (5-31); Bilirubin Total 0.7 mg/dL (0.0-1.0); Blood Urea Nitrogen 13 mg/dL (9-16); Calcium 9.7 mg/dL (8.4-10.2); Carbon Dioxide 27 mmol/L (22-29); Chloride 107 mmol/L (96-108); Cholesterol 195 mg/dL (<200); Estimated Glomerular Filt Rate > 60; Glucose Random 91 mg/dL (60-115); HDL Cholesterol 51 mg/dL (>40); LDL Cholesterol Calculated 125 mg/dL (<100); Potassium 4.8 mmol/L (3.3-5.1); Sodium 141 mmol/L (135-145); Total Protein 6.5 g/dL (6.5-8.0); Triglycerides 98 mg/dL (<150)
[2024-02-07 11:16] LABS: Free T4 (Free Thyroxine) 0.88 ng/dL (0.71-1.85); Thyroid Stimulating Hormone 4.02 uIU/mL (0.32-4.0); Vitamin D 25-OH Total 58.9 ng/mL (>30)
[2024-02-07 11:22] LABS: Vitamin B12 243 pg/mL (200-900)
== END 2024-02-07 07:40 | disposition home or self-care (01) ==
LOC: HO.HMGCLDS 07:39
PROVIDERS: PCP Internal Medicine; Visit Provider Internal Medicine
DX: I10 Essential (primary) hypertension (principal); E78.00 Pure hypercholesterolemia, unspecified
CPT/HCPCS: 36415; 80053; 80061; 82306; 82607; 82746; 84439; 84443; 85025

== ENCOUNTER 2024-02-13 12:07 | Outpatient (AMB) | payer MEDICARE, OTHER, SELFPAY ==
--- NOTE | 2024-02-13 12:31 | A.OFFPC_ITS ---
Vital Signs 02/13/24 12:32 Height 5 ft 7 in Weight 183 lb 2 oz BMI 28.7 BP 122/78 Blood Pressure Location Lt brachial Position Sitting Pulse 70 Pulse Source Pulse Oximeter Pulse Oximetry (%) 99 Oxygen Delivery Method Room Air Intake Visit Reasons: Annual Exam Shot Peen Operator Required: No Accompanied by: Self / Same As Patient Allergies ciprofloxacin [Cipro] Allergy (Unknown, Verified 02/13/24 12:32) Unknown pravastatin Allergy (Unknown, Verified 02/13/24 12:32) Unknown rosuvastatin [Crestor] Allergy (Unknown, Verified 02/13/24 12:32) leg cramps simvastatin Allergy (Unknown, Verified 02/13/24 12:32) Unknown Medication List - Last Reconciled 02/13/24 by Sejal Stern MD albuterol sulfate 90 mcg/actuation (Ventolin HFA) 2 puffs inhalation Q6H PRN amlodipine 2.5 mg PO DAILY calcium carbonate-vitamin D3 600 mg-5 mcg (200 unit) (Calcium 600 + D(3)) 1 tab PO DAILY celecoxib 200 mg PO DAILY cholecalciferol (vitamin D3) 50 mcg PO DAILY ezetimibe 10 mg PO DAILY gabapentin 100 mg PO BEDTIME mometasone-formoterol 100-5 mcg/actuation (Dulera) 2 puffs inhalation BID multivitamin 1 tab PO DAILY pantoprazole 40 mg PO DAILY Tobacco use date assessed: 02/13/24 Fall risk assessment: No Falls in past year Last assessed Fall Risk: 02/13/24 Dental Screening Dental Screen Date: 02/13/24 Did you have a dental visit in the last 12 months?: Yes Did you have a dental problem in the last 6 months where you did not have access to dental care?: No Was dental information given to patient?: Patient has dentist HPI Annual Exam HPI Details 79-year-old overweight female with hyper tension, hypercholesterolemia, GERD COPD and history of left breast cancer coming here today for physical exam. Last seen in July 2023. Patient is mammogram is due this month. Bone density is up-to-date. Review of the notes has seen Dermatology in January 29 diagnosis of dermatochalasis and history of basal cell carcinoma. Urgent Center January 21 for dysuria treated with Bactrim for UTI which is similar to 08/15/2023 Urgent Center visit. occ dizzy. problem with hearing but decline hearing test [facility] Medical History Hx of basal cell carcinoma Age-related osteoporosis without current pathological fracture Annual physical exam Radial scar of right breast Abnormal ultrasound of breast Breast density Vaginal wall prolapse Breast cancer, left Subclinical hypothyroidism Hip osteoarthritis Hypercholesterolemia Skin cancer, basal cell Peripheral neuropathy Osteopenia GERD (gastroesophageal reflux disease) Surgical History History of cataract surgery History of lumbar surgery History of left hip replacement History of tonsillectomy and adenoidectomy History of left mastectomy History of cholecystectomy Family History Father CVD (cardiovascular disease) Mother Uterine cancer Brother In good health Daughter In good health Brother Cancer Social History (Updated 02/13/24 @ 12:52 by Sejal Stern MD) Housing: House Alcohol intake: current Comment: once a week 2 drinks Patient Tobacco Use Status: Former Tobacco user Tobacco use type: Cigarette Years Smoked: 37 years old e-Cigarette/Vaping Use: Never Used Second Hand Smoke Exposure: No service: No Current occupational status: retired Cognitive needs: No Hearing needs: No Vision needs: Yes Female Reproductive History Menstrual Age of Menarche: 11 Questionnaire PHQ-9 Over the last 2 weeks, how often have you been bothered by any of the following problems? 1. Little interest or pleasure in doing things: not at all 2. Feeling down, depressed, or hopeless: not at all 3. Trouble falling or staying asleep, or sleeping too much: not at all 4. Feeling tired or having little energy: not at all 5. Poor appetite or overeating: not at all 6. Feeling bad about yourself - or that you are a failure or have let yourself or your family down: not at all 7. Trouble concentrating on things, such as reading the newspaper or watching television: not at all 8. Moving or speaking so slowly that other people could have noticed. Or the opposite - being so fidgety or restless that you have been moving around a lot more than usual: not at all 9. Thoughts that you would be better off or of hurting yourself in some way: not at all Total score: 0 Depression Screening Interpretation: Negative Depression Screening Done: Yes Source: Developed by Lulu Zamora, Jerrell Newman and colleagues, with an educational jessie from [employer]. Thrive Questionnaire Date Thrive assessed: 02/13/24 I am a: Patient What is your living situation today?: I have a steady place to live Within the past 12 months, did the food you bought not last and you didn't have the money to get more?: Never true Within the past 12 months, did you worry whether your food would run out before you got money to buy more?: Never true Do you have trouble paying for medicines?: No Do you have trouble getting transportation to medical appointments?: No Do you have trouble paying your heating and electricity bill?: No Do you have trouble taking care of your child, family member or friend?: No Do you have trouble with day-to-day activities such as bathing, preparing meals, shopping, managing finances, etc.?: No Are you currently unemployed and looking for a job?: No Are you interested in more education?: No Please select the resources that you would like help with: None Currently or been in a relationship where the following occur: No concerns reported THRIVE Score: 0 AUDIT C Alcohol Use Questionnaire (AUDIT-C) 1. How often do you have a drink containing alcohol?: 2-3 times a week 3. How often do you have six or more drinks on one occasion?: Never Total Score: 3 SERG-7 AMB Questionnaire SERG-7 Date SERG - 7 assessed: 02/13/24 Feeling nervous, anxious, or on edge: 0 = Not at all Not being able to stop or control worryin = Not at all Worrying too much about different things: 0 = Not at all Trouble relaxin = Not at all Being so restless that it is hard to sit still: 0 = Not at all Becoming easily annoyed or irritable: 0 = Not at all Feeling afraid as if something awful might happen: 0 = Not at all Total SERG-7 score (0-4 normal; 5-9 mild; 10-14 moderate; 15-21 severe): 0 Source: Developed by Lulu Zamora Kurt Kroenke and colleagues, with an educational jessie from [employer]. Review of Systems Const Denies poor appetite and Denies weakness Eyes Denies no additional complaints ENT Reports Normal hearing present, Denies dizziness, Denies nasal congestion, Denies tinnitus and Denies sore throat Card Denies chest pain, Denies syncope, Denies rapid heart rate and Denies dyspnea Resp Denies cough and Denies dyspnea GI Denies change in stool character, Reports constipation, Denies diarrhea, Denies nausea and Denies vomiting Denies urinary frequency, Denies difficulty voiding and Denies dysuria Neuro Reports Normal hearing present, Denies confusion, Denies dizziness, Denies syncope and Denies weakness Psych Denies confusion Physical exam (Primary Care) Vital Signs: Oxygen Delivery Method Room Air 02/13/24 12:32 BMI result Body Mass Index 28.7 Tobacco/Smoking Status: Tobacco use Status Tobacco use date assessed 02/13/24 02/13/24 12:33 Patient Tobacco Use Status Former Tobacco user 02/13/24 12:33 Tobacco use type Cigarette 02/13/24 12:33 e-Cigarette/Vaping Use Never Used 02/13/24 12:33 Depression Screening Interpretation: Negative Thrive Assessment: Date of Thrive Assessment Date Thrive assessed 07/31/23 02/13/24 12:33 Currently or been in a relationship where the following occur: No concerns reported Const General: No confusion Orientation/consciousness: No confusion HENMT Head: Yes normocephalic Ears: external ears normal and TM's normal bilaterally Face and sinus: Yes normal facial exam Mouth: moist mucous membranes Throat: Yes tonsils normal Eyes Conjunctivae: conjunctivae normal Pupils: Equal, round and reactive pupils present and Pupil accommodation reflex normal Direct Ophthalmoscopy: normal light reflex Neck Neck: No lymphadenopathy Thyroid: Thyroid normal Chest Chest palpation & inspection: normal inspection of the chest Resp Effort & Inspection: normal respiratory effort and no audible wheezes Auscultation: clear to auscultation bilaterally, no crackles, no wheezes and lung sounds not diminished Cardio Rate: regular rate Rhythm: regular rhythm Peripheral pulses: radial pulses present and dorsalis pedis present GI Palpation (GI): no masses Auscultation: normal bowel sounds and normoactive bowel sounds Rectal Exam - Female: deferred Skin General skin exam: no rashes or lesions noted Rashes: no rashes Neuro General: No confusion Cranial nerves: Yes Equal, round and reactive pupils present and Yes Normal hearing present Cognition (Neuro): normal cognition Gait exam (Neuro): Normal gait present Motor exam (neuro): 5/5 motor strength present throughout Deep tendon reflexes (DTR's): Right brachioradialis reflex intensity grade: 2+, Left brachioradialis reflex intensity grade: 2+, Right patellar reflex intensity grade: 2+ and Left patellar reflex intensity grade: 2+ Extrem General: No edema Assessment and Plan Assessment & Plan (1) Physical exam, annual: Code(s): Z00.00 - Encounter for general adult medical examination without abnormal findings Plan: Patient is advised to eat healthy, keep well hydrated, keep active and have adequate sleep. (2) Breast cancer, left: Comment: 1991 Code(s): C50.912 - Malignant neoplasm of unspecified site of left female breast Qualifiers: Breast location: unspecified site of breast Estrogen receptor status: unspecified Patient sex: female Qualified Code(s): C50.912 - Malignant neoplasm of unspecified site of left female breast Plan: Continuing to monitor with mammogram (3) Hypertension: Code(s): I10 - Essential (primary) hypertension Qualifiers: Hypertension type: essential hypertension Qualified Code(s): I10 - Essential (primary) hypertension Plan: Continue with blood pressure medication. Decrease salt intake and exercise on amlodipine 2.5 mg once a day (4) Hypercholesterolemia: Code(s): E78.00 - Pure hypercholesterolemia, unspecified Plan: Avoid fried foods, chicken skin, eggs, butter margarine, pastries and meat. Be it pork or beef they have a lot of cholesterol on Zetia 10 mg once a day, statin intolerant (5) GERD (gastroesophageal reflux disease): Code(s): K21.9 - Gastro-esophageal reflux disease without esophagitis Qualifiers: Esophagitis presence: without esophagitis Qualified Code(s): K21.9 - Gastro-esophageal reflux disease without esophagitis Plan: Avoid the foods that causes that usually spicy foods, tomato products, juices, coffee, soda and foods that your sensitive to. After eating do not lie down, allow 3-4 hours before in lie down. And keep the head of bed above 30 degrees to avoid the acid from going up. (6) Osteopenia: Comment: February 2022 Code(s): M85.80 - Other specified disorders of bone density and structure, unspecified site Plan: Reminded about bone density in February (7) COPD (chronic obstructive pulmonary disease): Comment: PFT June 2023Moderate obstructive ventilatory defect with positive bronchodilator response. Decreased diffusion capacity suggests emphysema Code(s): J44.9 - Chronic obstructive pulmonary disease, unspecified Plan: Continue with albuterol inhaler as needed. (8) TSH elevation: Code(s): R79.89 - Other specified abnormal findings of blood chemistry Orders: Orders XR chest 2V Today J44.9 - Chronic obstructive pulmonary disease, unspecified Referrals Pulmonology Referral J44.9 - Chronic obstructive pulmonary disease, unspecified Medications: New mometasone-formoterol 100-5 mcg/actuation (Dulera) 2 puffs inhalation BID 13 grams 2RF J44.9 - Chronic obstructive pulmonary disease, unspecified Coding Level of Care Code Est Pt Prev Care >65y(48748) Diagnoses Physical exam, annual Z00.00 Malignant neoplasm of left female breast, unspecified estrogen receptor status, unspecified site of breast C50.912 Breast location: unspecified site of breast Estrogen receptor status: unspecified Patient sex: female Essential hypertension I10 Hypertension type: essential hypertension Hypercholesterolemia E78.00 Gastroesophageal reflux disease without esophagitis K21.9 Esophagitis presence: without esophagitis Osteopenia M85.80 COPD (chronic obstructive pulmonary disease) J44.9 TSH elevation R79.89
[2024-02-13 12:32] VITALS: BP 122/78; PULSE 70; O2SAT 99; BMI 28.7
== END 2024-02-13 13:11 | disposition home or self-care (01) ==
PROVIDERS: Visit Provider Internal Medicine
DX: Z00.00 Encounter for general adult medical examination without abnormal findings (principal); C50.912 Malignant neoplasm of unspecified site of left female breast; J44.9 Chronic obstructive pulmonary disease, unspecified; I10 Essential (primary) hypertension; E78.00 Pure hypercholesterolemia, unspecified; K21.9 Gastro-esophageal reflux disease without esophagitis; M85.80 Other specified disorders of bone density and structure, unspecified site; R79.89 Other specified abnormal findings of blood chemistry
CPT/HCPCS: 99397

== ENCOUNTER 2024-04-03 09:31 | Outpatient (AMB) | payer MEDICARE, OTHER, SELFPAY ==
--- NOTE | 2024-04-03 09:34 | MHC.OFFVIS ---
Vital Signs 04/03/24 09:35 Height 5 ft 7 in Weight 185 lb 3.013 oz BMI 29.0 BP 130/64 Blood Pressure Location Rt brachial Position Sitting Pulse 73 Pulse Source Doppler Pulse Oximetry (%) 98 Oxygen Delivery Method Room Air Intake Visit Reasons: COPD Allergies ciprofloxacin [Cipro] Allergy (Unknown, Verified 02/13/24 12:32) Unknown pravastatin Allergy (Unknown, Verified 02/13/24 12:32) Unknown rosuvastatin [Crestor] Allergy (Unknown, Verified 02/13/24 12:32) leg cramps simvastatin Allergy (Unknown, Verified 02/13/24 12:32) Unknown HPI HPI COPD: Details: 79-year-old lady, former 20 pack-year smoker, quit over 40 years prior with underlying history of what appears to be moderate COPD with possible asthma component referred for pulmonary evaluation. Patient states that she does not have dyspnea on level ground, however she does have significant symptoms when trying to go up stairs or uphill. She denies cough or wheezing. She has been using albuterol MDI b.i.d. with suboptimal control of her symptoms. Patient states that she was not able to afford Dulera secondary to high co-pay. She denies exposure to industrial dusts. She denies family history of lung disease. [facility] Medical History Hx of basal cell carcinoma Age-related osteoporosis without current pathological fracture Annual physical exam Radial scar of right breast Abnormal ultrasound of breast Breast density Vaginal wall prolapse Breast cancer, left Subclinical hypothyroidism Hip osteoarthritis Hypercholesterolemia Skin cancer, basal cell Peripheral neuropathy Osteopenia GERD (gastroesophageal reflux disease) Surgical History History of cataract surgery History of lumbar surgery History of left hip replacement History of tonsillectomy and adenoidectomy History of left mastectomy History of cholecystectomy Family History Father CVD (cardiovascular disease) Mother Uterine cancer Brother In good health Daughter In good health Brother Cancer Social History (Updated 02/13/24 @ 12:52 by Sejal Stern MD) Housing: House Alcohol intake: current Comment: once a week 2 drinks Patient Tobacco Use Status: Former Tobacco user Tobacco use type: Cigarette Years Smoked: 37 years old e-Cigarette/Vaping Use: Never Used Second Hand Smoke Exposure: No service: No Current occupational status: retired Cognitive needs: No Hearing needs: No Vision needs: Yes Female Reproductive History Menstrual Age of Menarche: 11 Review of Systems Const Denies daytime sleepiness, Denies excessive sweating, Denies fatigue, Denies fever(s), Denies lethargy, Denies malaise, Denies night sweats, Denies snoring and Denies weight loss Eyes Denies blurry vision and Denies itchy eyes ENT Denies nasal congestion, Denies post nasal drip, Denies sinus pain, Denies sinus pressure and Denies other ( Thrush) Card Denies chest pain, Denies pedal edema, Denies dyspnea, Reports dyspnea on exertion, Denies orthopnea and Denies paroxysmal nocturnal dyspnea Resp Denies cough, Denies hemoptysis, Denies excessive phlegm production, Denies dyspnea, Reports dyspnea on exertion, Denies snoring and Denies wheezing GI Denies abdominal pain and Denies heartburn Musc Denies myalgias, Denies arthralgias and Denies joint swelling Skin/Breast Denies rash Neuro Denies memory loss and Denies seizure-like activity Psych Denies abnormal sleep pattern, Denies anxiety and Denies memory loss Endo Denies excessive sweating, Denies fatigue and Denies heat intolerance Martínez/Lymph Denies easy bruising Aller/Immun Denies itchy eyes, Denies seasonal rhinorrhea and Denies wheezing Physical Exam Vital Signs: Last Vital Signs Pulse 73 04/03/24 09:35 BP 130/64 04/03/24 09:35 Pulse Ox 98 04/03/24 09:35 Oxygen Delivery Method Room Air 04/03/24 09:35 BMI result Body Mass Index 29.0 Const General: no acute distress and alert Nutritional Appearance: not obese Orientation/consciousness: Other orientation findings ( oriented) HEENT Head: Yes atraumatic Eyes General: appearance normal, both eyes and all related structures Sclerae: sclerae normal EOM: EOMs intact bilaterally Neck Neck: Yes supple Lymphatic: no lymphadenopathy noted Resp Effort & Inspection: normal respiratory effort and no use of accessory muscles Auscultation: clear to auscultation bilaterally Cardio Rate: regular rate Rhythm: regular rhythm Heart sounds: no gallops, no murmurs and no rubs Skin General skin exam: other ( warm) Extrem General: No clubbing, No cyanosis and No edema Assessment & Plan Assessment & Plan (1) COPD (chronic obstructive pulmonary disease): Code(s): J44.9 - Chronic obstructive pulmonary disease, unspecified Category: Medical Plan: Results of pulmonary function test reviewed, underlying moderate COPD suboptimally controlled on albuterol MDI. Patient can not afford Dulera. Will try Anoro. Will refer to Pulmonary Rehab. (2) Dyspnea on exertion: Code(s): R06.09 - Other forms of dyspnea Category: Medical Plan: Likely multifactorial as patient states that her symptoms rapidly changed over the 6 months. Will proceed with pulmonary optimization and consider further cardiac workup if not improving. Orders: Orders CT chest wo IV con Today R91.8 - Other nonspecific abnormal finding of lung field Pulmonary Rehab Today J44.9 - Chronic obstructive pulmonary disease, unspecified Medications: New umeclidinium-vilanterol 62.5-25 mcg/actuation (Anoro Ellipta) 1 inh inhalation DAILY 60 ea 6RF Discontinued mometasone-formoterol 100-5 mcg/actuation (Dulera) Discontinued Reason: Doctor's Order 2 puffs inhalation BID 13 grams 2RF J44.9 - Chronic obstructive pulmonary disease, unspecified Coding Level of Care Code New Pt Level 4 (34532) Diagnoses COPD (chronic obstructive pulmonary disease) J44.9 Dyspnea on exertion R06.09
[2024-04-03 09:35] VITALS: BP 130/64; PULSE 73; O2SAT 98; BMI 29.0
== END 2024-04-03 10:05 | disposition home or self-care (01) ==
PROVIDERS: PCP Internal Medicine; Visit Provider Internal Medicine Pulmonary Disease
DX: J44.9 Chronic obstructive pulmonary disease, unspecified (principal)
CPT/HCPCS: 99214

== ENCOUNTER → 2024-04-03 09:31 | Outpatient (BNVA) | payer MEDICARE, OTHER, SELFPAY | PROVIDERS: PCP Internal Medicine; Visit Provider Internal Medicine Pulmonary Disease | DX: J44.9 Chronic obstructive pulmonary disease, unspecified (principal); R06.09 Other forms of dyspnea | CPT/HCPCS: 99212 ==

== ENCOUNTER 2024-04-15 09:21 | Outpatient (AMB) | payer MEDICARE, OTHER, SELFPAY ==
--- NOTE | 2024-04-15 09:23 | MHC.OFFVIS ---
Vital Signs 04/15/24 09:24 Height 5 ft 7 in Weight 182 lb 15.739 oz BMI 28.7 BP 140/90 H Blood Pressure Location Rt brachial Position Sitting Pulse 76 Pulse Source Pulse Oximeter Pulse Oximetry (%) 96 Oxygen Delivery Method Room Air Intake Visit Reasons: 6 month follow up Intake Note: Relevant Flags or Indicators ? Requires Pearl Cutter? N Abigail presents in office today for a scheduled FUV -- 8 mos. CC; Since last visit; labs ordered ? via PCP within the last 6 mos. Rx ordered ? no. Diagnostics/images ordered ? none. Relevant GI Sx as reported per pt? Reflux ? Hx of any recent surgeries? None Pearl Cutter Required: No Allergies ciprofloxacin [Cipro] Allergy (Unknown, Verified 04/15/24 09:28) Unknown pravastatin Allergy (Unknown, Verified 04/15/24 09:28) Unknown rosuvastatin [Crestor] Allergy (Unknown, Verified 04/15/24 09:28) leg cramps simvastatin Allergy (Unknown, Verified 04/15/24 09:28) Unknown HPI HPI 6 month follow up: Details: LAST VISIT: GERD (gastroesophageal reflux disease) Epigastric pain IBS (irritable bowel syndrome) S/P cholecystectomy Plan Patient can continue high-fiber diet. Patient was encouraged to increase fluid intake and activity to promote better bowel motility. Patient can continue pantoprazole half an hour before breakfast. Discussed with patient avoiding dietary triggers and late night snacking. Staying upright for minimum 3 hours after meals discussed with patient. Patient is leaving for [place] soon and will be returning in September. Patient will be sent for colonoscopy and if she will continue to have epigastric pain, reflux, dyspepsia patient will be sent for upper endoscopy as well. Patient is agreeable to this plan and verbalizes understanding of instructions. She was given the opportunity to ask questions and all questions answered. ? Thank you for allowing me to participate in her care Medications Refilled pantoprazole take one tablet half an hour before breakfast 40 mg PO DAILY 90 tabs 2RF K21.9 TODAY'S VISIT Patient is here today for follow-up. Patient reports that she has been doing well until about couple weeks ago when she started having increase acid reflux. Patient is unsure if this is related to her new inhaler. Patient states that she rinses her mouth and brushes her teeth after using the inhaler. Patient was placed on new inhaler Ellipta and she feels like maybe after starting that her symptoms of acid reflux got worse. However patient does admit to have trouble with some allergies and she [place] in [place] area. Patient might be allergic to all or other trees. There might be some other environmental allergies that she is not aware of. Last colonoscopy was done in 2013 and patient was told not to repeat colonoscopy because it was normal. Patient would rather not go through with it. Upper GI series was done back in January and it showed episodic reflux the, small hiatal hernia [facility] Medical History Hx of basal cell carcinoma Age-related osteoporosis without current pathological fracture Annual physical exam Radial scar of right breast Abnormal ultrasound of breast Breast density Vaginal wall prolapse Breast cancer, left Subclinical hypothyroidism Hip osteoarthritis Hypercholesterolemia Skin cancer, basal cell Peripheral neuropathy Osteopenia GERD (gastroesophageal reflux disease) Surgical History History of cataract surgery History of lumbar surgery History of left hip replacement History of tonsillectomy and adenoidectomy History of left mastectomy History of cholecystectomy Family History Father CVD (cardiovascular disease) Mother Uterine cancer Brother In good health Daughter In good health Brother Cancer Social History Housing: House Alcohol intake: current Comment: once a week 2 drinks Patient Tobacco Use Status: Former Tobacco user Tobacco use type: Cigarette Years Smoked: 37 years old e-Cigarette/Vaping Use: Never Used Second Hand Smoke Exposure: No service: No Current occupational status: retired Cognitive needs: No Hearing needs: No Vision needs: Yes Female Reproductive History Menstrual Age of Menarche: 11 Review of Systems Const Denies weight gain and Denies weight loss ENT Reports no additional complaints, Denies dysphagia and Denies odynophagia Card Reports no additional complaints Resp Reports no additional complaints GI Denies abdominal pain, Denies belching, Denies melena, Denies bloating, Denies change in bowel habits, Denies dysphagia, Denies excessive flatus, Denies dyspepsia, Reports heartburn, Denies diarrhea, Denies loose stools, Denies nausea, Denies odynophagia and Denies vomiting Reports no additional complaints Musc Reports no additional complaints Neuro Reports no additional complaints Psych Reports no additional complaints Endo Reports no additional complaints Physical Exam Vital Signs: Last Vital Signs Pulse 76 04/15/24 09:24 BP 140/90 H 04/15/24 09:24 Pulse Ox 96 04/15/24 09:24 Oxygen Delivery Method Room Air 04/15/24 09:24 BMI result Body Mass Index 28.7 Const General: healthy appearing, no acute distress and well developed Nutritional Appearance: well nourished Orientation/consciousness: patient oriented x3 Resp Effort & Inspection: normal respiratory effort, able to speak in complete sentences, no tracheal deviation and symmetric chest movement Auscultation: clear to auscultation bilaterally Cardio Rate: regular rate GI Inspection: Yes normal to inspection and No distended Palpation (GI): Soft to palpation, not firm, nontender and No hepatosplenomegaly present Auscultation: normal bowel sounds General: Yes no CVA tenderness Back/Spine/Pelvis Back: no CVA tenderness Skin General skin exam: elasticity normal, turgor normal and dry skin Neuro General: patient oriented x3 Psych Appearance: grossly normal Mental Status: mental status grossly normal Results Reviewed Results Reviewed: UPPER GI SERIES IMPRESSION: Small type I hiatus hernia. Episodic gastroesophageal reflux to the level of the aortic arch. Remainder the examination was normal. Assessment & Plan Assessment & Plan (1) GERD (gastroesophageal reflux disease): Code(s): K21.9 - Gastro-esophageal reflux disease without esophagitis Category: Medical Qualifiers: Esophagitis presence: without esophagitis Qualified Code(s): K21.9 - Gastro-esophageal reflux disease without esophagitis (2) Epigastric pain: Code(s): R10.13 - Epigastric pain (3) IBS (irritable bowel syndrome): Code(s): K58.9 - Irritable bowel syndrome, unspecified Qualifiers: Irritable bowel syndrome type: without diarrhea Qualified Code(s): K58.9 - Irritable bowel syndrome, unspecified (4) S/P cholecystectomy: Code(s): Z90.49 - Acquired absence of other specified parts of digestive tract Plan Patient will change PPI to Nexium. Avoid dietary triggers and late night snacking. Will send patient for RAST allergen testing. Continue with her inhalers as it helps her with her asthma. Patient will return in 3 months, sooner on as needed basis. She is agreeable to this plan and verbalizes understanding of instructions. She was given the opportunity to ask questions and all questions answered. Thank you for allowing me to participate in her care Medications: New esomeprazole magnesium (Nexium) 40 mg PO DAILY 30 caps 5RF K21.9 - Gastro-esophageal reflux disease without esophagitis umeclidinium-vilanterol 62.5-25 mcg/actuation 1 inh inhalation DAILY 60 ea 0RF Discontinued pantoprazole take one tablet half an hour before breakfast Discontinued Reason: Doctor's Order 40 mg PO DAILY 90 tabs 2RF K21.9 - Gastro-esophageal reflux disease without esophagitis umeclidinium-vilanterol 62.5-25 mcg/actuation (Anoro Ellipta) Discontinued Reason: Doctor's Order 1 inh inhalation DAILY 60 ea 6RF Coding Level of Care Code Est Pt Level 3 (33174) Diagnoses Gastroesophageal reflux disease without esophagitis K21.9 Esophagitis presence: without esophagitis Epigastric pain R10.13 Irritable bowel syndrome without diarrhea K58.9 Irritable bowel syndrome type: without diarrhea S/P cholecystectomy Z90.49 Time Spent (min) 30 Comment 20 minutes spent with patient and additional 10 minutes spent reviewing her records
[2024-04-15 09:24] VITALS: BP 140/90; PULSE 76; O2SAT 96; BMI 28.7
== END 2024-04-15 10:12 | disposition home or self-care (01) ==
PROVIDERS: Visit Provider Nurse Practitioner Family
DX: K21.9 Gastro-esophageal reflux disease without esophagitis (principal); R10.13 Epigastric pain; K58.9 Irritable bowel syndrome, unspecified; Z90.49 Acquired absence of other specified parts of digestive tract
CPT/HCPCS: 99213

== ENCOUNTER → 2024-04-15 09:21 | Outpatient (BNVA) | payer MEDICARE, OTHER, SELFPAY | PROVIDERS: Visit Provider Nurse Practitioner Family | DX: K21.9 Gastro-esophageal reflux disease without esophagitis (principal); K58.9 Irritable bowel syndrome, unspecified; Z90.49 Acquired absence of other specified parts of digestive tract; Z79.899 Other long term (current) drug therapy | CPT/HCPCS: 99212 ==

== ENCOUNTER 2024-05-17 12:49 | Outpatient (REF) | payer MEDICARE, OTHER, SELFPAY | END 2024-05-17 12:50 | disposition home or self-care (01) | LOC: HO.CT 12:49 | PROVIDERS: PCP Internal Medicine; Visit Provider Internal Medicine Pulmonary Disease | DX: R91.8 Other nonspecific abnormal finding of lung field (principal) | CPT/HCPCS: 71250 ==

== ENCOUNTER 2024-05-27 08:37 | Outpatient (REF) | payer MEDICARE, OTHER, SELFPAY | END 2024-05-27 08:38 | disposition home or self-care (01) | LOC: HO.LAB 08:37 | PROVIDERS: PCP Internal Medicine | DX: N30.01 Acute cystitis with hematuria (principal) | CPT/HCPCS: 81003; 87086; 87088; 87186; 99212 ==

== ENCOUNTER 2024-05-27 08:37 | Outpatient (AMB) | payer MEDICARE, OTHER, SELFPAY ==
[2024-05-27 09:24] VITALS: BP 122/80; PULSE 65; TEMP 37.1; O2SAT 98; BMI 29.8
--- NOTE | 2024-05-27 09:24 | AM.OFFWIN_ITS ---
Intake Vital Signs 05/27/24 09:24 Height 5 ft 7 in Weight 190 lb BMI 29.8 BP 122/80 Blood Pressure Location Rt brachial Position Sitting Pulse 65 Pulse Source Pulse Oximeter Temp 98.7 F Temp Source Oral Pulse Oximetry (%) 98 Oxygen Delivery Method Room Air Intake Visit Reasons: EP ? UTI Intake Note: Patient here for burning in urination for about 24hrs. Patient Tobacco Use Status: Former Tobacco user Allergies ciprofloxacin [Cipro] Allergy (Unknown, Verified 05/27/24 09:31) Unknown pravastatin Allergy (Unknown, Verified 05/27/24 09:31) Unknown rosuvastatin [Crestor] Allergy (Unknown, Verified 05/27/24 09:31) leg cramps simvastatin Allergy (Unknown, Verified 05/27/24:) Unknown Do you need a note to return to daycare/school/sports/work: No HPI HPI Comments History of Present Illness Details History of Present Illness The patient is an 79-year-old female presenting with a suspected urinary tract infection. The patient reports experiencing frequent urges to urinate without substantial output, alongside burning sensations during urination. She denies any associated fever and does not report any lower back or flank pain. The patient mentions notable discomfort in her hip, which she attributes to a separate, chronic issue, unrelated to her current urinary symptoms. She denies any visible hematuria and has no known history of kidney stones. The patient has a notable history of recurrent urinary tract infections, which she attributes to a cystocele, previously referred to as a dropped bladder. She acknowledges that lifting heavy objects despite medical advice has been an inciting factor in past episodes. The patient's history suggests a recurrent type of infection, having previously been treated successfully with antibiotics. Multiple antibiotic allergies are noted, particularly to ciprofloxacin and simvastatin, with the former exacerbating her neuropathy. [facility] Medical History Hx of basal cell carcinoma Age-related osteoporosis without current pathological fracture Annual physical exam Radial scar of right breast Abnormal ultrasound of breast Breast density Vaginal wall prolapse Breast cancer, left Subclinical hypothyroidism Hip osteoarthritis Hypercholesterolemia Skin cancer, basal cell Peripheral neuropathy Osteopenia GERD (gastroesophageal reflux disease) Surgical History History of cataract surgery History of lumbar surgery History of left hip replacement History of tonsillectomy and adenoidectomy History of left mastectomy History of cholecystectomy Family History Father CVD (cardiovascular disease) Mother Uterine cancer Brother In good health Daughter In good health Brother Cancer Social History Housing: House Alcohol intake: current Comment: once a week 2 drinks Patient Tobacco Use Status: Former Tobacco user Tobacco use type: Cigarette Years Smoked: 37 years old e-Cigarette/Vaping Use: Never Used Second Hand Smoke Exposure: No service: No Current occupational status: retired Cognitive needs: No Hearing needs: No Vision needs: Yes Female Reproductive History Menstrual Age of Menarche: 11 Review of Systems Const All systems reviewed & are unremarkable except as noted in HPI and below Physical Exam Vital Signs: Last Vital Signs Temp 98.7 F 05/27/24 09:24 Pulse 65 05/27/24 09:24 BP 122/80 05/27/24 09:24 Pulse Ox 98 05/27/24 09:24 Oxygen Delivery Method Room Air 05/27/24 09:24 BMI result Body Mass Index 29.8 Const General: cooperative, healthy appearing, comfortable and no acute distress Orientation/consciousness: patient oriented x3 HEENT Head: Yes normal to inspection Ears: hearing grossly normal bilaterally General nose exam: Normal external nose present Face and sinus: Yes normal facial exam Neck Neck: Yes normal visual inspection, Yes trachea midline and Yes supple Resp Effort & Inspection: normal respiratory effort and able to speak in complete sentences Skin General skin exam: no rashes or lesions noted Neuro General: patient oriented x3 Psych Appearance: grossly normal Speech and movement: Normal speech and movement present Attitude: cooperative Thought process: Normal thought process present Insight: Good insight present (Psych) Judgement: Good judgement present (Psych) Results AMB Urinalysis, Automated UA Leukoctes 500 Wilber/uL Last Edit by TORIN Rousseau on 05/27/24 09: 44 UA Nitrite Negative Last Edit by TORIN Rousseau on 05/27/24 09:44 UA Urobilinogen 0.2 mg/dL Last Edit by TORIN Rousseau on 05/27/24 09:44 UA Protein 0 mg/dL Last Edit by TORIN Rousseau on 05/27/24 09:44 UA pH 6.0 Last Edit by TORIN Rousseau on 05/27/24 09:44 UA Blood 80 Jason/uL Last Edit by TORIN Rousseau on 05/27/24 09:44 UA Specific Meredith 1.010 Last Edit by TORIN Rousseau on 05/27/24 09:44 UA Ketone Negative Last Edit by TORIN Rousseau on 05/27/24 09:44 UA Bilirubin 0 mg/dL Last Edit by TORIN Rousseau on 05/27/24 09:44 UA Glucose 0 mg/dL Last Edit by TORIN Rousseau on 05/27/24 09:44 Assessment & Plan Assessment & Plan (1) UTI (urinary tract infection): Code(s): N39.0 - Urinary tract infection, site not specified Qualifiers: Urinary tract infection type: acute cystitis Hematuria presence: with hematuria Qualified Code(s): N30.01 - Acute cystitis with hematuria Plan: For the urinary tract infection, I will initiate antibiotic therapy with bactrim, to be administered twice daily for 3 days, considering her allergy p rofile and previous successful treatment outcomes. A urine culture will be obtained to identify the specific bacterial strain, ensuring the selected antibiotic is effective. If the patient experiences worsening symptoms after two or three days of treatment, she is advised to contact me as the culture results should be available by then, which would guide any necessary adjustments in her antibiotic regimen. Given her history of cystocele contributing to recurrent infections, ongoing advice includes avoiding activities that exacerbate her condition, such as lifting heavy objects. Patient was informed and verbally consented to the use of an ambient scribe for clinic note documentation during this visit. Orders: Orders AMB Urinalysis Automated Today Z13.9 - Encounter for screening, unspecified Urine Culture Today N39.0 - Urinary tract infection, site not specified Medications: New sulfamethoxazole-trimethoprim 800-160 mg (Bactrim DS) 1 tab PO Q12H 6 tabs 0RF Coding Level of Care Code Est Pt Level 3 (14811) Diagnoses Acute cystitis with hematuria N30.01 Urinary tract infection type: acute cystitis Hematuria presence: with hematuria
== END 2024-05-27 09:57 | disposition home or self-care (01) ==
PROVIDERS: PCP Internal Medicine; Visit Provider Physician Assistant
DX: N30.01 Acute cystitis with hematuria (principal); Z13.9 Encounter for screening, unspecified

== ENCOUNTER 2024-06-04 14:37 | Outpatient (AMB) | payer MEDICARE, OTHER, SELFPAY ==
[2024-06-04 14:39] VITALS: BP 122/78; PULSE 84; O2SAT 96; BMI 28.8
--- NOTE | 2024-06-04 14:39 | MHC.OFFVIS ---
Vital Signs 06/04/24 14:39 Height 5 ft 7 in Weight 184 lb BMI 28.8 BP 122/78 Blood Pressure Location Rt brachial Position Sitting Pulse 84 Pulse Source Doppler Pulse Oximetry (%) 96 Oxygen Delivery Method Room Air Intake Visit Reasons: COPD Allergies ciprofloxacin [Cipro] Allergy (Unknown, Verified 05/27/24 09:31) Unknown pravastatin Allergy (Unknown, Verified 05/27/24 09:31) Unknown rosuvastatin [Crestor] Allergy (Unknown, Verified 05/27/24 09:31) leg cramps simvastatin Allergy (Unknown, Verified 05/27/24 09:31) Unknown HPI HPI COPD: Details: 79-year-old lady, former 20 pack-year smoker, now followed for moderate COPD and dyspnea on exertion. After the last office visit she has been switched to Anoro with significantly improved symptom control. She denies recent exacerbations. Patient start pulmonary rehab. [facility] Medical History Hx of basal cell carcinoma Age-related osteoporosis without current pathological fracture Annual physical exam Radial scar of right breast Abnormal ultrasound of breast Breast density Vaginal wall prolapse Breast cancer, left Subclinical hypothyroidism Hip osteoarthritis Hypercholesterolemia Skin cancer, basal cell Peripheral neuropathy Osteopenia GERD (gastroesophageal reflux disease) Surgical History History of cataract surgery History of lumbar surgery History of left hip replacement History of tonsillectomy and adenoidectomy History of left mastectomy History of cholecystectomy Family History Father CVD (cardiovascular disease) Mother Uterine cancer Brother In good health Daughter In good health Brother Cancer Social History Housing: House Alcohol intake: current Comment: once a week 2 drinks Patient Tobacco Use Status: Former Tobacco user Tobacco use type: Cigarette Years Smoked: 37 years old e-Cigarette/Vaping Use: Never Used Second Hand Smoke Exposure: No service: No Current occupational status: retired Cognitive needs: No Hearing needs: No Vision needs: Yes Female Reproductive History Menstrual Age of Menarche: 11 Review of Systems Const Denies daytime sleepiness, Denies excessive sweating, Denies fatigue, Denies fever(s), Denies lethargy, Denies malaise, Denies night sweats, Denies snoring and Denies weight loss Eyes Denies blurry vision and Denies itchy eyes ENT Denies nasal congestion, Denies post nasal drip, Denies sinus pain, Denies sinus pressure and Denies other ( Thrush) Card Denies chest pain, Denies pedal edema, Denies dyspnea, Denies orthopnea and Denies paroxysmal nocturnal dyspnea Resp Denies cough, Denies hemoptysis, Denies excessive phlegm production, Denies dyspnea, Denies snoring and Denies wheezing GI Denies abdominal pain and Denies heartburn Musc Denies myalgias, Denies arthralgias and Denies joint swelling Skin/Breast Denies rash Neuro Denies memory loss and Denies seizure-like activity Psych Denies abnormal sleep pattern, Denies anxiety and Denies memory loss Endo Denies excessive sweating, Denies fatigue and Denies heat intolerance Martínez/Lymph Denies easy bruising Aller/Immun Denies itchy eyes, Denies seasonal rhinorrhea and Denies wheezing Physical Exam Vital Signs: Last Vital Signs Pulse 84 06/04/24 14:39 BP 122/78 06/04/24 14:39 Pulse Ox 96 06/04/24 14:39 Oxygen Delivery Method Room Air 06/04/24 14:39 BMI result Body Mass Index 28.8 Const General: no acute distress and alert Nutritional Appearance: not obese Orientation/consciousness: Other orientation findings ( oriented) HEENT Head: Yes atraumatic Eyes General: appearance normal, both eyes and all related structures Sclerae: sclerae normal EOM: EOMs intact bilaterally Neck Neck: Yes supple Lymphatic: no lymphadenopathy noted Resp Effort & Inspection: normal respiratory effort and no use of accessory muscles Auscultation: clear to auscultation bilaterally Cardio Rate: regular rate Rhythm: regular rhythm Heart sounds: no gallops, no murmurs and no rubs Skin General skin exam: other ( warm) Extrem General: No clubbing, No cyanosis and No edema Assessment & Plan Assessment & Plan (1) COPD (chronic obstructive pulmonary disease): Code(s): J44.9 - Chronic obstructive pulmonary disease, unspecified Category: Medical Plan: Improved significantly on Anoro and albuterol MDI. Continue current regimen. (2) Dyspnea on exertion: Code(s): R06.09 - Other forms of dyspnea Category: Medical Plan: With significant improvement. Patient also start pulmonary rehab. CT chest is pending. Medications: Refilled albuterol sulfate 90 mcg/actuation (Ventolin HFA) 2 puffs inhalation Q6H PRN 8.5 grams 6RF shortness of breath or wheezing J44.9 - Chronic obstructive pulmonary disease, unspecified Coding Level of Care Code Est Pt Level 4 (11904) Diagnoses COPD (chronic obstructive pulmonary disease) J44.9 Dyspnea on exertion R06.09
--- OUTSIDE RECORDS SUMMARY | 2024-06-05 22:09 | XMS_ITS ---
Author Organization [facility] Address [address] [place] [phone] Care Team Providers Care Food Service Name Role Phone Sejal Stern MD Primary Care Provider Lennox Chauhan [phone] REASON FOR VISIT Patient presents today for gerd Encounters Encounter Location Date Provider Diagnosis [facility] [address] [facility] [address] [place] [phone] 05/09/2023 Lennox Cardenas PLAN OF TREATMENT No Information
--- OUTSIDE RECORDS SUMMARY | 2024-06-05 22:09 | XMS_ITS ---
Author Organization [facility] Address [address] [place] [phone] Care Team Providers Care Auto Parker Name Role Phone Sejal Stern MD Primary Care Provider Lennox Chauhan [phone] REASON FOR VISIT cancel OV Encounters Encounter Location Date Provider Diagnosis [facility] [address] [place] [address] 05/05/2023 Lennox Cardenas PLAN OF TREATMENT No Information
--- OUTSIDE RECORDS SUMMARY | 2024-06-05 22:09 | XMS_ITS | Patient Health Record ---
Author Organization [facility] Address [address] [place] [address] Care Team Providers Care Accountancy Professor Name Role Phone Sejal Stern MD Primary Care Provider Lennox Chauhan [phone] REASON FOR REFERRAL No Information MEDICATIONS Medication SIG (Take, Route, Frequency, Duration) Notes Start Date End Date Status Tylenol Arthritis Pain Active Omeprazole 20 MG 1 capsule Orally as needed Active Magnesium Active Aspirin 81mg Active Colyte with Flavor Packs 240 GM as directed Orally as directed for 1 dose 04/30/2013 Active Multivitamins Active CeleBREX Active Calcium Active Vitamin B Complex Ac tive SOCIAL HISTORY Sex Assigned At : Social History Observation Description Sex Assigned At Unknown PROBLEMS Problem Type ICD Code Onset Dates Problem Status W/U Status Risk SNOMED Code Notes Problem Esophageal reflux (530.81) Active confirmed Esophageal reflux (540906471) Problem Heartburn (787.1) Active confirmed Heartburn (71491073) Problem Screen for colon cancer (V76.51) Active confirmed Screening for malignant neoplasm of colon (667310870) PLAN OF TREATMENT Future Test Test Name Order Date COLONOSCOPY 04/30/2013 Insurance Providers Payer Name Payer Address Payer Phone Subscriber Number Group Number Insured Name Patient Relationship to Insured Coverage Start Date Coverage End Date MEDICARE OF [place] [address] [place] [address] [id number] FIONA BOWDEN Self - patient is the insured [facility] INDEMNITY [address] [place] [address] [id number] FIONA BOWDEN Self - patient is the insured MEDICAL (GENERAL) HISTORY Medical History History ICD Code GERD-EGD in [id number] HH-no [employer] tt's Breast cancer-as below Denies HI,DM,CVA,Lung disease,renal dise ase Neg colonoscopy in 09/[address] Katrina orellana Surgical History Surgery Date(Month/Year) Left radical mastectomy for cancer in ea rly 1989' Lower back surgery [facility] Left hip replacement 05/2012
== END 2024-06-04 14:59 | disposition home or self-care (01) ==
PROVIDERS: PCP Internal Medicine; Visit Provider Internal Medicine Pulmonary Disease
DX: J44.9 Chronic obstructive pulmonary disease, unspecified (principal); R06.09 Other forms of dyspnea
CPT/HCPCS: 99214

== ENCOUNTER → 2024-06-04 14:37 | Outpatient (BNVA) | payer MEDICARE, OTHER, SELFPAY | PROVIDERS: PCP Internal Medicine; Visit Provider Internal Medicine Pulmonary Disease | DX: J44.9 Chronic obstructive pulmonary disease, unspecified (principal); R06.09 Other forms of dyspnea | CPT/HCPCS: 99212 ==

== ENCOUNTER 2024-06-12 12:49 | Outpatient (AMB) | payer MEDICARE, OTHER, SELFPAY ==
[2024-06-12 12:51] VITALS: BP 124/82; PULSE 77; O2SAT 96; BMI 29.1
--- NOTE | 2024-06-12 12:51 | A.OFFPC_ITS ---
Vital Signs 06/12/24 12:51 Height 5 ft 7 in Weight 186 lb 2 oz BMI 29.1 BP 124/82 Blood Pressure Location Lt brachial Position Sitting Pulse 77 Pulse Source Pulse Oximeter Pulse Oximetry (%) 96 Oxygen Delivery Method Room Air Intake Visit Reasons: COPD Wide Area Network Systems Administrator Required: No Accompanied by: Self / Same As Patient Allergies ciprofloxacin [Cipro] Allergy (Unknown, Verified 06/12/24 12:52) Unknown pravastatin Allergy (Unknown, Verified 06/12/24 12:52) Unknown rosuvastatin [Crestor] Allergy (Unknown, Verified 06/12/24 12:52) leg cramps simvastatin Allergy (Unknown, Verified 06/12/24 12:52) Unknown Tobacco use date assessed: 06/12/24 Fall risk assessment: No Falls in past year Last assessed Fall Risk: 06/12/24 Dental Screening Dental Screen Date: 06/12/24 Did you have a dental visit in the last 12 months?: Yes Did you have a dental problem in the last 6 months where you did not have access to dental care?: No Was dental information given to patient?: Patient has dentist HPI COPD HPI Details The patient is an 79-year-old female presenting for follow-up of chronic medical conditions including hypertension, COPD, osteopenia, and GERD. The patient has a history of hypertension, which has generally been well- controlled except for an isolated elevated reading of 180 mmHg when a dose of medication was missed. Recent blood pressure monitoring at the clinic showed good control. Regarding her COPD, the patient is on pulmonary rehabilitation and regularly uses an Enoro inhibitor and albuterol. She has had minimal albuterol use, approximately twice since the last visit, correlating with activities that increased her need for it, such as prolonged exposure to certain environments. She instigated her own referral to pulmonary rehabilitation to improve lung health. As for her bone health, she had a bone density test last done in February 2022, which indicated osteopenia. A follow-up test is needed to assess progress. Furthermore, although lymphedema is noted in one arm, her burn injury, resulting from baking, has exacerbated it. The burn blister broke, likely complicating her lymphedema. Her GERD is currently managed with pantoprazole after issues with insurance coverage for Nexium. She requires a medication renewal. The patient has been experiencing symptoms related to reduced gastric acid secretion and anticipates a need for a regular refill. Recently, she experienced a urinary tract infection without typical diagnostic indicators but with symptom management commenced as per her complaints. She has been proactive in the case of an infection, especially after experiencing similar episodes twice before. The patient is also on Celecoxib for pain management, due to its documented stomach safety, though she feels its effectiveness is limited. Her flu vaccination is up-to-date, but there is uncertainty about additional vaccinations like the new shingles and pneumonia vaccines. Vision checks are done in [place], with no current concerns apart from glasses requirement. [facility] Medical History Hx of basal cell carcinoma Age-related osteoporosis without current pathological fracture Annual physical exam Radial scar of right breast Abnormal ultrasound of breast Breast density Vaginal wall prolapse Breast cancer, left Subclinical hypothyroidism Hip osteoarthritis Hypercholesterolemia Skin cancer, basal cell Peripheral neuropathy Osteopenia GERD (gastroesophageal reflux disease) Surgical History History of cataract surgery History of lumbar surgery History of left hip replacement History of tonsillectomy and adenoidectomy History of left mastectomy History of cholecystectomy Family History Father CVD (cardiovascular disease) Mother Uterine cancer Brother In good health Daughter In good health Brother Cancer Social History Housing: House Alcohol intake: current Comment: once a week 2 drinks Patient Tobacco Use Status: Former Tobacco user Tobacco use type: Cigarette Years Smoked: 37 years old e-Cigarette/Vaping Use: Never Used Second Hand Smoke Exposure: No service: No Current occupational status: retired Cognitive needs: No Hearing needs: No Vision needs: Yes Female Reproductive History Menstrual Age of Menarche: 11 Questionnaire PHQ-9 Over the last 2 weeks, how often have you been bothered by any of the following problems? 1. Little interest or pleasure in doing things: not at all 2. Feeling down, depressed, or hopeless: not at all 3. Trouble falling or staying asleep, or sleeping too much: not at all 4. Feeling tired or having little energy: not at all 5. Poor appetite or overeating: not at all 6. Feeling bad about yourself - or that you are a failure or have let yourself or your family down: not at all 7. Trouble concentrating on things, such as reading the newspaper or watching television: not at all 8. Moving or speaking so slowly that other people could have noticed. Or the opposite - being so fidgety or restless that you have been moving around a lot more than usual: not at all 9. Thoughts that you would be better off or of hurting yourself in some way: not at all Total score: 0 Depression Screening Interpretation: Negative Depression Screening Done: Yes Source: Developed by Drs. Lennox Stoll, Lulu Mar, Jerrell Newman and colleagues, with an educational jessie from [employer]. Thrive Questionnaire Date Thrive assessed: 06/12/24 I am a: Patient What is your living situation today?: I have a steady place to live Within the past 12 months, did the food you bought not last and you didn't have the money to get more?: Never true Within the past 12 months, did you worry whether your food would run out before you got money to buy more?: Never true Do you have trouble paying for medicines?: No Do you have trouble getting transportation to medical appointments?: No Do you have trouble paying your heating and electricity bill?: No Do you have trouble taking care of your child, family member or friend?: No Do you have trouble with day-to-day activities such as bathing, preparing meals, shopping, managing finances, etc.?: No Are you currently unemployed and looking for a job?: No Are you interested in more education?: No Please select the resources that you would like help with: None Currently or been in a relationship where the following occur: No concerns reported THRIVE Score: 0 AUDIT C Alcohol Use Questionnaire (AUDIT-C) 1. How often do you have a drink containing alcohol?: 2-3 times a week 3. How often do you have six or more drinks on one occasion?: Never Total Score: 3 SERG-7 AMB Questionnaire SERG-7 Date SERG - 7 assessed: 06/12/24 Feeling nervous, anxious, or on edge: 0 = Not at all Not being able to stop or control worryin = Not at all Worrying too much about different things: 0 = Not at all Trouble relaxin = Not at all Being so restless that it is hard to sit still: 0 = Not at all Becoming easily annoyed or irritable: 0 = Not at all Feeling afraid as if something awful might happen: 0 = Not at all Total SERG-7 score (0-4 normal; 5-9 mild; 10-14 moderate; 15-21 severe): 0 Source: Developed by Drs. Lennox Stoll, Lulu Mar, Jerrell Newman and colleagues, with an educational jessie from [employer]. Physical exam (Primary Care) Vital Signs: Last Vital Signs Pulse 77 06/12/24 12:51 BP 124/82 06/12/24 12:51 Pulse Ox 96 06/12/24 12:51 Oxygen Delivery Method Room Air 06/12/24 12:51 BMI result Body Mass Index 29.1 Tobacco/Smoking Status: Tobacco use Status Tobacco use date assessed 06/12/24 06/12/24 12:54 Patient Tobacco Use Status Former Tobacco user 06/12/24 12:54 Tobacco use type Cigarette 06/12/24 12:54 e-Cigarette/Vaping Use Never Used 06/12/24 12:54 PHQ-9: PHQ-9 Score PHQ-9: Total score 0 06/12/24 12:54 Depression Screening Interpretation: Negative Thrive Assessment: Date of Thrive Assessment Date Thrive assessed 06/12/24 06/12/24 12:54 Currently or been in a relationship where the following occur: No concerns reported Const General: alert; No acute distress Eyes Conjunctivae: conjunctivae normal Resp Auscultation: clear to auscultation bilaterally Cardio Rate: regular rate Rhythm: regular rhythm GI Inspection: Yes normal to inspection Extrem General: Yes normal to inspection and No edema Coding Level of Care Code Est Pt Level 4 (90127) Complex EM visit Add On G2211 Diagnoses Other emphysema J43.8 COPD type: emphysema Emphysema type: other TSH elevation R79.89 Malignant neoplasm of left female breast, unspecified estrogen receptor status, unspecified site of breast C50.912 Breast location: unspecified site of breast Estrogen receptor status: unspecified Patient sex: female Essential hypertension I10 Hypertension type: essential hypertension Hypercholesterolemia E78.00 Gastroesophageal reflux disease without esophagitis K21.9 Esophagitis presence: without esophagitis Osteopenia M85.80 Assessment & Plan Assessment & Plan (1) COPD (chronic obstructive pulmonary disease): Code(s): J44.9 - Chronic obstructive pulmonary disease, unspecified Category: Medical Qualifiers: COPD type: emphysema Emphysema type: other Qualified Code(s): J43.8 - Other emphysema Plan: Patient has been following up with Pulmonary has been sent for pulmonary rehab and placed on Anoro as well as short-acting beta agonist. (2) TSH elevation: Code(s): R79.89 - Other specified abnormal findings of blood chemistry Category: Medical Plan: Mild elevation. Reassurance (3) Breast cancer, left: Comment: 1991 Code(s): C50.912 - Malignant neoplasm of unspecified site of left female breast Category: Medical Qualifiers: Breast location: unspecified site of breast Estrogen receptor status: unspecified Patient sex: female Qualified Code(s): C50.912 - Malignant neoplasm of unspecified site of left female breast Plan: Discussed about following up with mammogram (4) Hypertension: Code(s): I10 - Essential (primary) hypertension Category: Medical Qualifiers: Hypertension type: essential hypertension Qualified Code(s): I10 - Essential (primary) hypertension Plan: Continue with blood pressure medication. Decrease salt intake and exercise on amlodipine 2.5 mg once a day (5) Hypercholesterolemia: Code(s): E78.00 - Pure hypercholesterolemia, unspecified Category: Medical Plan: Avoid fried foods, chicken skin, eggs, butter margarine, pastries and meat. Be it pork or beef they have a lot of cholesterol takes Zetia only. As the patient can not tolerate simvastatin pravastatin rosuvastatin. (6) GERD (gastroesophageal reflux disease): Code(s): K21.9 - Gastro-esophageal reflux disease without esophagitis Category: Medical Qualifiers: Esophagitis presence: without esophagitis Qualified Code(s): K21.9 - Gastro-esophageal reflux disease without esophagitis Plan: Avoid the foods that causes that usually spicy foods, tomato products, juices, coffee, soda and foods that your sensitive to. After eating do not lie down, allow 3-4 hours before in lie down. And keep the head of bed above 30 degrees to avoid the acid from going up. (7) Osteopenia: Comment: February 2022 Code(s): M85.80 - Other specified disorders of bone density and structure, unspecified site Category: Medical Plan: Reminded about bone density. Plan - Hypertension: Continue monitoring blood pressure, maintain current regimen of amlodipine. - COPD: Continue pulmonary rehabilitation; use Enoro and albuterol as needed. - Osteopenia: Arrange a follow-up bone density test to assess progression. - GERD: Renew prescription for pantoprazole and address any further insurance issues for coverage. - UTI: Monitor for symptoms; treat symptomatically as needed. - Lymphedema and burn: Apply silver sulfadiazine to burn site, monitor for signs of infection, and consider protective measures to avoid further complications. - Vaccinations: Discuss potential benefits of newer shingles and pneumonia vaccines in the next visit. - Pain Management: Continue Celecoxib; reassess if additional pain management is needed. Orders: Orders XR DEXA axial skeleton Today M81.0 - Age-related osteoporosis without current pathological fracture, M85.80 - Other specified disorders of bone density and structure, unspecified site Medications: New pantoprazole 40 mg PO DAILY 90 tabs 2RF K21.9 - Gastro-esophageal reflux disease without esophagitis Discontinued esomeprazole magnesium (Nexium) Discontinued Reason: Patient Refused 40 mg PO DAILY 30 caps 5RF K21.9 - Gastro-esophageal reflux disease without esophagitis
--- OUTSIDE RECORDS SUMMARY | 2024-06-12 12:54 | XMS_ITS ---
Author Organization [facility] Address [address] [place] [phone] Care Team Providers Care Assembler Garment Form Name Role Phone Sejal Stern MD Primary Care Provider Lennox Chauhan [phone] REASON FOR VISIT Patient presents today for gerd Encounters Encounter Location Date Provider Diagnosis [facility] [address] [facility] [address] [place] [phone] 05/09/2023 Lennox Cardenas PLAN OF TREATMENT No Information
--- OUTSIDE RECORDS SUMMARY | 2024-06-12 12:55 | XMS_ITS ---
Author Organization [facility] Address [address] [place] [phone] Care Team Providers Care Advertising Statistical Clerk Name Role Phone Sejal Stern MD Primary Care Provider Lennox Chauhan [phone] REASON FOR VISIT cancel OV Encounters Encounter Location Date Provider Diagnosis [facility] [address] [place] [address] 05/05/2023 Lennox Cardenas PLAN OF TREATMENT No Information
--- OUTSIDE RECORDS SUMMARY | 2024-06-12 12:55 | XMS_ITS | Patient Health Record ---
Author Organization [facility] Address [address] [place] [address] Care Team Providers Care Senior Program Analyst Name Role Phone Sejal Stern MD Primary Care Provider Lennox Chauhan [phone] REASON FOR REFERRAL No Information MEDICATIONS Medication [...] Esophageal reflux (530.81) Active confirmed Esophageal reflux (253103643) Problem Heartburn (787.1) Active confirmed Heartburn (93045282) Problem Screen for colon cancer (V76.51) Active confirmed Screening for malignant neoplasm of colon (176931955) PLAN OF TREATMENT Future Test Test Name Order Date COLONOSCOPY 04/30/2013 Insurance Providers Payer Name Payer Address Payer Phone Subscriber Number Group Number Insured Name Patient Relationship to Insured Coverage Start Date Coverage End Date MEDICARE OF [place] [address] [place] [address] [id number] FIONA BOWDEN Self - patient is the insured [facility] INDEMNITY [address] [place] [address] [id number] FIONA BOWDEN Self - patient is the insured MEDICAL (GENERAL) HISTORY Medical History History ICD Code GERD-EGD in [id number] HH-no [place] tt's Breast cancer-as below Denies [place],DM,CVA,Lung disease,renal dise ase Neg colonoscopy in 09/[address] Katrina orellana Surgical History Surgery Date(Month/Year) Left radical mastectomy for cancer in ea rly 1989' Lower back surgery [facility] Left hip replacement 05/2012
== END 2024-06-12 14:44 | disposition home or self-care (01) ==
PROVIDERS: PCP Internal Medicine; Visit Provider Internal Medicine
DX: J43.8 Other emphysema (principal); R79.89 Other specified abnormal findings of blood chemistry; C50.912 Malignant neoplasm of unspecified site of left female breast; I10 Essential (primary) hypertension; E78.00 Pure hypercholesterolemia, unspecified; K21.9 Gastro-esophageal reflux disease without esophagitis; M85.80 Other specified disorders of bone density and structure, unspecified site

== ENCOUNTER → 2024-06-12 12:49 | Outpatient (BNVA) | payer MEDICARE, OTHER, SELFPAY | PROVIDERS: PCP Internal Medicine; Visit Provider Internal Medicine | DX: J43.8 Other emphysema (principal); R79.89 Other specified abnormal findings of blood chemistry; C50.912 Malignant neoplasm of unspecified site of left female breast; I10 Essential (primary) hypertension; E78.00 Pure hypercholesterolemia, unspecified; K21.9 Gastro-esophageal reflux disease without esophagitis; M85.80 Other specified disorders of bone density and structure, unspecified site | CPT/HCPCS: 96127; 99212 ==

== ENCOUNTER 2024-07-29 09:13 | Outpatient (AMB) | payer MEDICARE, OTHER, SELFPAY ==
--- NOTE | 2024-07-29 09:15 | A.OFFVIS_ITS ---
Vital Signs 07/29/24 09:26 Height 5 ft 7 in Weight 184 lb 11.958 oz BMI 28.9 BP 128/60 Blood Pressure Location Rt brachial Position Sitting Pulse 74 Pulse Source Pulse Oximeter Pulse Oximetry (%) 97 Oxygen Delivery Method Room Air Intake Visit Reasons: 3 month follow up Intake Note: ESTABLISHED PATIENT for Epigastric pain mgmt FUV Chief Complaint; Reflux well controlled w/ current PPI. Pt does report occasional breakthrough, would possibly benefit from pepcid but cannot recall if her insurance covers it or not. Pt denies any other concerns at this time. Photo Print Specialist Required: No Accompanied by: Self / Same As Patient Allergies ciprofloxacin [Cipro] Allergy (Unknown, Verified 07/29/24 09:15) Unknown pravastatin Allergy (Unknown, Verified 07/29/24 09:15) Unknown rosuvastatin [Crestor] Allergy (Unknown, Verified 07/29/24 09:15) leg cramps simvastatin Allergy (Unknown, Verified 07/29/24 09:15) Unknown HPI HPI 3 month follow up: Details: LAST VISIT: GERD (gastroesophageal reflux disease) Epigastric pain IBS (irritable bowel syndrome) S/P cholecystectomy Plan Patient will change PPI to Nexium. Avoid dietary triggers and late night snacking. Will send patient for RAST allergen testing. Continue with her inhalers as it helps her with her asthma. Patient will return in 3 months, sooner on as needed basis. She is agreeable to this plan and verbalizes understanding of instructions. She was given the opportunity to ask questions and all questions answered. ? Thank you for allowing me to participate in her care Medications New esomeprazole magnesium (Nexium) 40 mg PO DAILY 30 caps 5RF K21.9 umeclidinium-vilanterol 62.5-25 mcg/actuation 1 inh inhalation DAILY 60 ea 0RF Discontinued pantoprazole take one tablet half an hour before breakfast Discontinued Reason: Doctor's Order 40 mg PO DAILY 90 tabs 2RF K21.9 umeclidinium-vilanterol 62.5-25 mcg/actuation (Anoro Ellipta) Discontinued Reason: Doctor's Order 1 inh inhalation DAILY 60 ea 6RF TODAY'S VISIT Patient is here today for follow-up. Patient reports that she has been doing well. Patient was unable to get Nexium due to insurance and she continues to ta ke pantoprazole. Patient reports that it has been working for her well. No longer patient is experiencing acid reflux. Denies dyspepsia, dysphagia or odynophagia. Patient has no issues at night time. Patient denies any GI concerning issues. Denies melena, hematochezia, unintentional weight loss or ribbon like stools. [facility] Medical History Hx of basal cell carcinoma Age-related osteoporosis without current pathological fracture Annual physical exam Radial scar of right breast Abnormal ultrasound of breast Breast density Vaginal wall prolapse Breast cancer, left Subclinical hypothyroidism Hip osteoarthritis Hypercholesterolemia Skin cancer, basal cell Peripheral neuropathy Osteopenia GERD (gastroesophageal reflux disease) Surgical History History of cataract surgery History of lumbar surgery History of left hip replacement History of tonsillectomy and adenoidectomy History of left mastectomy History of cholecystectomy Family History Father CVD (cardiovascular disease) Mother Uterine cancer Brother In good health Daughter In good health Brother Cancer Social History Housing: House Alcohol intake: current Comment: once a week 2 drinks Patient Tobacco Use Status: Former Tobacco user Tobacco use type: Cigarette Years Smoked: 37 years old e-Cigarette/Vaping Use: Never Used Second Hand Smoke Exposure: No service: No Current occupational status: retired Cognitive needs: No Hearing needs: No Vision needs: Yes Female Reproductive History Menstrual Age of Menarche: 11 Review of Systems Const Denies weight gain and Denies weight loss ENT Reports no additional complaints, Denies dysphagia and Denies odynophagia Card Reports no additional complaints Resp Reports no additional complaints GI Denies abdominal pain, Denies belching, Denies melena, Denies bloating, Denies change in bowel habits, Denies dysphagia, Denies excessive flatus, Denies dyspepsia, Denies heartburn, Denies diarrhea, Denies loose stools, Denies nausea, Denies odynophagia and Denies vomiting Musc Reports no additional complaints Neuro Reports no additional complaints Psych Reports no additional complaints Endo Reports no additional complaints Physical Exam Vital Signs: Last Vital Signs Pulse 74 07/29/24 09:26 BP 128/60 07/29/24 09:26 Pulse Ox 97 07/29/24 09:26 Oxygen Delivery Method Room Air 07/29/24 09:26 BMI result Body Mass Index 28.9 Const General: healthy appearing, no acute distress and well developed Nutritional Appearance: well nourished Orientation/consciousness: patient oriented x3 Resp Effort & Inspection: normal respiratory effort, able to speak in complete sentences, no tracheal deviation and symmetric chest movement Auscultation: clear to auscultation bilaterally Cardio Rate: regular rate GI Inspection: Yes normal to inspection and No distended Palpation (GI): Soft to palpation, not firm, nontender and No hepatosplenomegaly present Auscultation: normal bowel sounds General: Yes no CVA tenderness Back/Spine/Pelvis Back: no CVA tenderness Skin General skin exam: elasticity normal, turgor normal and dry skin Neuro General: patient oriented x3 Psych Appearance: grossly normal Mental Status: mental status grossly normal Assessment & Plan Assessment & Plan (1) GERD (gastroesophageal reflux disease): Code(s): K21.9 - Gastro-esophageal reflux disease without esophagitis Category: Medical Qualifiers: Esophagitis presence: without esophagitis Qualified Code(s): K21.9 - Gastro-esophageal reflux disease without esophagitis (2) Epigastric pain: Code(s): R10.13 - Epigastric pain (3) IBS (irritable bowel syndrome): Code(s): K58.9 - Irritable bowel syndrome, unspecified Qualifiers: Irritable bowel syndrome type: without diarrhea Qualified Code(s): K58.9 - Irritable bowel syndrome, unspecified (4) S/P cholecystectomy: Code(s): Z90.49 - Acquired absence of other specified parts of digestive tract Plan Continue pantoprazole daily. Avoid dietary triggers and late night snacking. Staying upright for minimum 3 hours after meals discussed with patient. Patient will follow-up in our office as needed. Patient's PCP will order pantoprazole for her. She is agreeable to current plan of care and verbalizes understanding of instructions. She was given the opportunity to ask questions and all questions answered. Thank you for allowing me to participate in her care Coding Level of Care Code Est Pt Level 3 (65297) Diagnoses Gastroesophageal reflux disease without esophagitis K21.9 Esophagitis presence: without esophagitis Epigastric pain R10.13 Irritable bowel syndrome without diarrhea K58.9 Irritable bowel syndrome type: without diarrhea S/P cholecystectomy Z90.49 Time Spent (min) 25 Comment 15 minutes spent with patient and additional 10 minutes spent reviewing her records
[2024-07-29 09:26] VITALS: BP 128/60; PULSE 74; O2SAT 97; BMI 28.9
== END 2024-07-29 10:03 | disposition home or self-care (01) ==
PROVIDERS: Visit Provider Nurse Practitioner Family
DX: K21.9 Gastro-esophageal reflux disease without esophagitis (principal); R10.13 Epigastric pain; K58.9 Irritable bowel syndrome, unspecified; Z90.49 Acquired absence of other specified parts of digestive tract
CPT/HCPCS: 99213

== ENCOUNTER → 2024-07-29 09:13 | Outpatient (BNVA) | payer MEDICARE, OTHER, SELFPAY | PROVIDERS: Visit Provider Nurse Practitioner Family | DX: K21.9 Gastro-esophageal reflux disease without esophagitis (principal); K58.9 Irritable bowel syndrome, unspecified; R10.13 Epigastric pain; Z90.49 Acquired absence of other specified parts of digestive tract | CPT/HCPCS: 99212 ==

== ENCOUNTER 2024-08-03 09:33 | Outpatient (AMB) | payer MEDICARE, OTHER, SELFPAY ==
[2024-08-03 09:41] VITALS: BP 134/72; PULSE 74; RESP 14; TEMP 36.6; O2SAT 98; BMI 29.0
--- NOTE | 2024-08-03 09:41 | MHC.OFFWIV ---
Intake Vital Signs 08/03/24 09:41 Height 5 ft 7 in Weight 185 lb BMI 29.0 BP 134/72 Blood Pressure Location Rt brachial Position Sitting Respiration 14 Pulse 74 Pulse Source Pulse Oximeter Temp 97.8 F Temp Source Oral Pulse Oximetry (%) 98 Oxygen Delivery Method Room Air Intake Visit Reasons: ?uti Intake Note: Pt is here today c/o frequency upon urination and burning Patient Tobacco Use Status: Former Tobacco user Allergies ciprofloxacin [Cipro] Allergy (Unknown, Verified 08/03/24 09:41) Unknown pravastatin Allergy (Unknown, Verified 08/03/24 09:41) Unknown rosuvastatin [Crestor] Allergy (Unknown, Verified 08/03/24 09:41) leg cramps simvastatin Allergy (Unknown, Verified 08/03/24 09:41) Unknown HPI ?uti HPI Details Patient is a 79-year-old female with history of UTIs, who comes to the walk-in clinic complaining of urinary frequency and burning with urination that just started a few days ago. No history of kidney stones, or kidney infections. She gives history of recurrent urinary tract infections due to having a cystocele, and reports that she does lift heavy objects at times, despite advised that it might exacerbate her cystocele and cause an infection. She reports that she does what she has to . She has an OBGYN and has seen them recently, and has discussed surgery to repair the cystocele. She reports that she has an upcoming appointment and is going to ask for surgical repair at this point. She denies fever or chills, nausea vomiting or diarrhea, malaise or myalgias, headache, dizziness or weakness, ear pain or discharge from the ears, hearing changes, chest congestion, shortness of breath or significant cough, coughing fits, chest pain, or other significant associated symptoms. She had microscopy and susceptibility testing on her last UTI just 2 months ago, and it was susceptible to Bactrim which had been started empirically. She reports that her symptoms did appear to resolve. There were more effective antibiotic agents also. [facility] Medical History Hx of basal cell carcinoma Age-related osteoporosis without current pathological fracture Annual physical exam Radial scar of right breast Abnormal ultrasound of breast Breast density Vaginal wall prolapse Breast cancer, left Subclinical hypothyroidism Hip osteoarthritis Hypercholesterolemia Skin cancer, basal cell Peripheral neuropathy Osteopenia GERD (gastroesophageal reflux disease) Surgical History History of cataract surgery History of lumbar surgery History of left hip replacement History of tonsillectomy and adenoidectomy History of left mastectomy History of cholecystectomy Family History Father CVD (cardiovascular disease) Mother Uterine cancer Brother In good health Daughter In good health Brother Cancer Social History Housing: House Alcohol intake: current Comment: once a week 2 drinks Patient Tobacco Use Status: Former Tobacco user Tobacco use type: Cigarette Years Smoked: 37 years old e-Cigarette/Vaping Use: Never Used Second Hand Smoke Exposure: No service: No Current occupational status: retired Cognitive needs: No Hearing needs: No Vision needs: Yes Female Reproductive History Menstrual Age of Menarche: 11 Physical Exam Vital Signs: Last Vital Signs Temp 97.8 F 08/03/24 09:41 Pulse 74 08/03/24 09:41 Resp 14 08/03/24 09:41 BP 134/72 08/03/24 09:41 Pulse Ox 98 08/03/24 09:41 Oxygen Delivery Method Room Air 08/03/24 09:41 BMI result Body Mass Index 29.0 Const General: cooperative, healthy appearing, comfortable, no acute distress, alert, awake, Physically active and well groomed; No anxious, diaphoretic, ill appearing, intoxicated appearing, poor hygiene or tired appearing Nutritional Appearance: average body habitus Orientation/consciousness: patient oriented x3 Limitations: no limitations Resp Effort & Inspection: normal respiratory effort, able to speak in complete sentences, no audible wheezes, no cough, no grunting, not labored, no nasal flaring, no retractions and symmetric chest movement GI Palpation (GI): Bladder palpation abnormal (Mildly tender to the suprapubic area per patient) General: Yes Bladder palpation abnormal (Mildly tender to the suprapubic area per patient) and Yes no CVA tenderness Back/Spine/Pelvis Back: no CVA tenderness Skin Other: Good color, warm and dry Neuro General: patient oriented x3 Psych Appearance: grossly normal Mental Status: mental status grossly normal Speech and movement: Normal speech and movement present Affect: normal affect Attitude: cooperative Thought process: Normal thought process present Insight: Good insight present (Psych) Judgement: Good judgement present (Psych) Results AMB Urinalysis, Automated UA Leukoctes 125 Wilber/uL Last Edit by Bea García CMA on 08/03/24 09:52 UA Nitrite Negative Last Edit by Bea García CMA on 08/03/24 09:52 UA Urobilinogen 0.2 mg/dL Last Edit by Bea García CMA on 08/03/24 09:52 UA Protein 30 mg/dL Last Edit by Bea García CMA on 08/03/24 09:52 UA pH 6.0 Last Edit by Bea García CMA on 08/03/24 09:52 UA Blood 200 Jason/uL Last Edit by Bea García CMA on 08/03/24 09:52 UA Specific [place] 1.030 Last Edit by Bea García CMA on 08/03/24 09:52 UA Ketone Negative Last Edit by Bea García CMA on 08/03/24 09:52 UA Bilirubin 0 mg/dL Last Edit by Bea García CMA on 08/03/24 09:52 UA Glucose 0 mg/dL Last Edit by Bea García CMA on 08/03/24 09:52 Results Reviewed Results Reviewed: Laboratory Last Values Urine pH (Auto) 6.0 08/03/24 09:50 Specific [place] (Auto) 1.030 08/03/24 09:50 Urine Protein (Auto) 30 mg/dL 08/03/24 09:50 Glucose (UA)(Auto) 0 mg/dL 08/03/24 09:50 Urine Ketones (Auto) Negative 08/03/24 09:50 Urine Blood (Auto) 200 Jason/uL 08/03/24 09:50 Urine Nitrite (Auto) Negative 08/03/24 09:50 Urine Bilirubin (Auto) 0 mg/dL 08/03/24 09:50 Urine Urobilinogen (Auto) 0.2 mg/dL 08/03/24 09:50 Leukocyte Esterase (Auto) 125 Wilber/uL 08/03/24 09:50 Positive with high count for leukocyte esterase and blood, negative for nitrites. Consistent with her last urinary tract infection 2 months ago. Assessment & Plan Assessment & Plan (1) Acute recurrent cystitis: Code(s): N30.00 - Acute cystitis without hematuria Plan Patient is an 79-year-old female with history of recurrent urinary tract infections, usually urethritis or cystitis, and no upper tract infections that she knows of. She has no flank pain, back pain, nausea vomiting or diarrhea, headache or weakness, malaise or myalgias or any other symptoms that would be suggestive of an upper tract infection. Her urine today is cloudy, and is positive for leukocyte esterase and blood, and negative for nitrites. Patient has history of susceptibility testing on microscopy with her last UTI just 2 months ago. She was treated with Bactrim at that time, which was susceptible, but not as effective as some of the others. So while she did apparently clear the infection, as it has been recently treated with Bactrim, I am going to switch the antibiotic and start her on a course of Keflex, which is in the same class of cephalosporins as ceftriaxone, which was more effective on her test. She has plans to see her mlt soon, and wants to discuss surgery to repair the cystocele. As it it is apparently the underlying etiology for her recurrent urinary tract infections, she is eager to prevent it recurring. We are also pending microscopy and culture for her urine, and will follow up as needed with results. Orders: Orders UA CC w/rflx Micro + Cult Today R30.0 - Dysuria AMB Urinalysis Automated Today Z13.9 - Encounter for screening, unspecified Medications: New cephalexin 500 mg PO BID 7 days 14 caps 0RF Coding Level of Care Code Est Pt Level 4 (02203) Diagnoses Acute recurrent cystitis N30.00
== END 2024-08-03 11:19 | disposition home or self-care (01) ==
PROVIDERS: Visit Provider Physician Assistant Medical
DX: Z13.9 Encounter for screening, unspecified (principal); N30.00 Acute cystitis without hematuria

== ENCOUNTER 2024-08-03 09:33 | Outpatient (REF) | payer MEDICARE, OTHER, SELFPAY ==
--- OUTSIDE RECORDS SUMMARY | 2024-08-03 11:31 | XMS_ITS ---
Author Organization [employer] Address [address] [facility] [place] [address] Care Team Providers Care Printed Circuit Layout Taper Name Role Phone GrisalisJaylen phillips Unavailable [phone] Allergies Allergen (clinical drug ingredient) Drug/Non Drug Allergy documented on EMR Reaction Allergy Type Onset Date Status ciprofloxacin Ciprofloxacin Unknown Drug Allergy Active Substance with 2-unkrixh-4-methylgl utaryl-coenzyme A reductase inhibitor mechanism of action (substance) Statins Muscle cramps Drug Allergy Active REASON FOR VISIT conjunctivitis for 3 days-itchy, red Medications Medication SIG (Take, Route, Fr equency, Duration) Notes Start Date End Date Status Erythromycin 5 MG/GM 1 application into the lower eyelid of affected eye Ophthalmic Four times a day for 7 days 04/26/2024 Active amLODIPine Besylate Active CeleBREX Active Zetia Active Gabapentin Active Vital Signs Temperature 97.6 degrees Fahrenheit 04/26/20 24 Blood pressure systolic 130 mm Hg 04/26/20 24 Blood pressure diastolic 78 mm Hg 024 Heart Rate 81 /min 04/26/2024 Respiratory Rate 19 /min 04/26/2024 Height 67 in 04/26/2024 Weight 185 lbs 04/26/2024 BMI 28.97 kg/m2 04/26/2024 Oximetry 97 % 04/26/2024 Encounters Encounter Location Date Provider Diagnosis [facility] [address] [facility] [place] [address] 04/26/2024 Jaylen Naqvi Conjunctivitis due t o adenovirus B30.1 Assessments Encounter Date Diagnosis (ICD Code) Assessment Notes Treatment Notes Treatment Clinical Notes Section Notes 04/26/2024 Conjunctivitis due to adenovirus (ICD-10 - B30.1) she will use warm soaks and apply ilotycin 4x/day Plan Of Treatment Medication Medication Name Sig Start Date Stop Date Notes Erythromycin 5 MG/GM 1 application into the lower eyelid of affected eye Ophthalmic Four times a day for 7 days 04/26/2024 Next Appt Details Follow Up: prn, Reason: Progress Notes * TENNILLE BOWDENN DDOB: (79 yo F)Acc No.[id number]:04/26/2024 Patient:?TENNILLE BOWDEN N D Provider:?Jaylen Naqvi MD :[id number]???Age:79 Y???Sex:Female D ate:04/26/2024 Address:[address] [place], [place] [address] Subjective: * Chief Complaints: * ???Conjunctivitis for 3 days -itchy, red * HPI: ???Constitutional:?Denies : Anorexia.?Denies : Fatigue.?Denies : Fever.?Denies : Joint pains.?Denies : Myalgia.?Denies : Neck pain.?Denies : Night sweats.?Denies : Weight gain.?Denies : Weight loss.? crusty exudate when she woke up today in both eyes and over the past 3 days.? Has been rubber her eyes a lot. * ROS:?All Other Systems:?Review of Systems (ROS)?All others negative except those mentioned in HPI.? * Medical History:? * Surgical History:?No Surgica l History documented. * Hospitalization/Major Diagno stic Procedure:?No Hospitalization History. * Family History:?Non-Contribu tory.? * Social History:?No Social History documented Non-Contributory . * Medications:?TakingGabapenti n Zetia CeleBREX amLODIPine Besylate Medication List reviewed and reconciled with the patientTaking Gabapentin Taking Zetia Taking CeleBREX Taking amLODIPine Besylate Medication List reviewed and reconciled with the patient * Allergies:?Statins: Muscle c rampsCiprofloxacin: Allergyno[Allergies Verified] Objective: * Vitals:?Temp:97.6F, HR:81/mi n, BP:130/78mm Hg, Wt:185lbs, BMI:28.97Index, Ht: 67 in, RR:19/min, Oxygen sat %:97%, Ht-cm: 170.18 cm, Wt-k.91 kg. * Examination: ???General Examination: ?GENERAL APPEARANCE:?alert, pleasant, well nourished, well developed, in no acute distress.?HEAD:?normocephalic, atraumatic.?NECK/THYROID:?neck supple, full range of motion, no carotid bruit, no cervical lymphadenopathy, no thyroid nodules, no thyromegaly.?HEART:?no murmurs, rubs, gallops, regular rate and rhythm, S1, S2 normal.?LUNGS:?clear to auscultation bilaterally, good air movement, no wheezes, rales, rhonchi.?NEUROLOGIC:?nonfocal, alert and oriented, cranial nerves 2-12 grossly intact, motor strength normal upper and lower extremities, no tremor, sensory exam intact.?PSYCH:?alert, oriented, cognitive function intact, mood/affect full range.?bilateral inflammation of conjucntival with hypermia - no pain with blinking. Assessment: * Assessment: 1.?Conjunctivitis due to derrell novirus - B30.1 (Primary)??? she will use warm soaks and apply ilotycin 4x/day Plan: * Treatment: * Procedure Codes:? * Follow Up:?prn * * Sign off status: Completed true * Provider:?Jaylen Naqvi MD Date:?06/2023 Generated for Winnie gilliam/Bina/eTransmitting on:?08/03/2024 11:31 AM EST History and Physical Notes * HPI (History of Present Illness) Category Sub-Category Detail Notes Category Not es Constitutional Anorexia crusty exudate when she woke up today in both eyes and over the past 3 days. Has been rubber her eyes a lot. Fatigue Fever Joint pains Myalgia Night sweats Weight gain Weight loss Neck pain Examination Category Sub-Category Detail Notes Category Not es General Examination GENERAL APPEARANCE: alert, pleasant, well nouris hed, well developed, in no acute distress bilateral inflammation of conjucntival with hypermia - no pain with blinking. HEAD: normocephalic, atrau matic NECK/THYROID: neck supple, full ra nge of motion, no carotid bruit, no cervical lymphadenopathy, no thyroid nodules, no thyromegaly HEART: no murmurs, rubs, ga llops, regular rate and rhythm, S1, S2 normal LUNGS: clear to auscultatio n bilaterally, good air movement, no wheezes, rales, rhonchi NEUROLOGIC: nonfocal, alert and oriented, cranial nerves 2-12 grossly intact, motor strength normal upper and lower extremities, no tremor, sensory exam intact PSYCH: alert, oriented, cog nitive function intact, mood/affect full range
--- OUTSIDE RECORDS SUMMARY | 2024-08-03 11:31 | XMS_ITS | Patient Health Record ---
Author Organization [facility] Address [address] [place] [address] Care Team Providers Care Electrical Continuity Tester Name Role Phone Sejal Stern MD Primary Care Provider Lennox Chauhan [phone] REASON FOR REFERRAL No Information MEDICATIONS Medication [...] Esophageal reflux (530.81) Active confirmed Esophageal reflux (495457633) Problem Heartburn (787.1) Active confirmed Heartburn (42240258) Problem Screen for colon cancer (V76.51) Active confirmed Screening for malignant neoplasm of colon (444831183) PLAN OF TREATMENT Future Test Test Name Order Date COLONOSCOPY 04/30/2013 Insurance Providers Payer Name Payer Address Payer Phone Subscriber Number Group Number Insured Name Patient Relationship to Insured Coverage Start Date Coverage End Date MEDICARE OF [place] [address] [place] [address] [phone] [id number] FIONA BOWDEN Self - patient is the insured [facility] IN[facility]MN[facility] [address] [place] [address] [id number] FIONA BOWDEN Self - patient is the insured MEDICAL (GENERAL) HISTORY Medical History History ICD Code GERD-EGD in [id number] HH-no [place] tt's Breast cancer-as below Denies [place],DM,CVA,Lung disease,renal dise ase Neg colonoscopy in 09/[address] Katrina orellana Surgical History Surgery Date(Month/Year) Left radical mastectomy for cancer in ea rly 1989' Lower back surgery [facility] Left hip replacement 05/2012
--- OUTSIDE RECORDS SUMMARY | 2024-08-03 11:31 | XMS_ITS | Patient Health Record ---
Author Organization [employer] Address [address] [facility] [place] [address] Care Team Providers Care Chief Revenue Officer Name Role Phone Jaylen Naqvi Unavailable [phone] Allergies Allergen (clinical drug ingredient) Drug/Non Drug Allergy documented on EMR Reaction Allergy Type Onset Date Status ciprofloxacin Ciprofloxacin Unknown Drug Allergy Active Substance with 0-swibvgb-3-methylgl utaryl-coenzyme A reductase inhibitor mechanism of action (substance) Statins Muscle cramps Drug Allergy Active Reason For Referral No Information Medications Medication SIG (Take, Route, Fr equency, Duration) Notes Start Date End Date Status Erythromycin 5 MG/GM 1 application into the lower eyelid of affected eye Ophthalmic Four times a day for 7 days 04/26/2024 Active amLODIPine Besylate Active CeleBREX Active Zetia Active Gabapentin Active Vital Signs Heart Rate 81 /min 04/26/2024 Temperature 97.6 degrees Fahrenheit 04/26/2024 Respiratory Rate 19 /min 04/26/2024 Oximetry 97 % 04/26/2024 Blood pressure diastolic 78 mm Hg 04/26/2024 Height 67 in 04/26/2024 Blood pressure systolic 130 mm Hg 04/26/2024 Weight 185 lbs 04/26/2024 BMI 28.97 kg/m2 04/26/2024 Encounters Encounter Location Date Provider Diagnosis [facility] [address] [place] [address] 04/26/2024 Jaylen Naqvi Conjunctivitis due t o adenovirus B30.1 Assessments Encounter Date Diagnosis (ICD Code) Assessment Notes Treatment Notes Treatment Clinical Notes Section Notes 04/26/2024 Conjunctivitis due to adenovirus (ICD-10 - B30.1) she will use warm soaks and apply ilotycin 4x/day Plan Of Treatment No Information Insurance Providers Payer Name Payer Address Payer Phone Subscriber Number Group Number Insured Name Patient Relationship to Insured Coverage Start Date Coverage End Date MEDICARE B [address] [employer] [place] [address] [id number] FIONA BOWDEN Self - patient is the insured 9 [employer] [address] [place] [address] [phone] [id number] FIONA BOWDEN Self - patient is the insured 9 Medical (General) History Medical History History ICD Code COPD Neuropathy
--- OUTSIDE RECORDS SUMMARY | 2024-08-03 11:31 | XMS_ITS ---
Author Organization [facility] Address [address] [place] [address] Care Team Providers Care Movie Shot Camera Operator Name Role Phone Sejal Stern MD Primary Care Provider Lennox Chauhan [phone] REASON FOR VISIT cancel OV Encounters Encounter Location Date Provider Diagnosis [facility] [address] [place] [address] 05/05/2023 Lennox Cardenas PLAN OF TREATMENT No Information
[2024-08-03 13:59] LABS: Appearance Urine Turbid; Color Urine Yellow; Glucose Urine UA Negative (Negative); Leukocyte Esterase Urine Large (3+) (Negative); Nitrite Urine Negative (Negative); PH 5.5 (5.0-9.0); Specific Gravity - Urine 1.025 (1.005-1.025); UMIC TRIGGER UACC YES; Urine Blood Large (3+) (Negative); Urine Ketones Negative (Negative); Urine Protein 100 (2+) mg/dL (Neg-Trace)
[2024-08-03 14:14] LABS: Bacteria Urine 4+ (None Seen); Hyaline Casts Urine 0-2 /LPF (0-2); RBC Urine >20 /HPF (0-2); UACC Culture Trigger YES; WBC Urine >50 /HPF (0-5)
== END 2024-08-03 09:34 | disposition home or self-care (01) ==
LOC: HO.LAB 09:33
PROVIDERS: Visit Provider Physician Assistant Medical
DX: N30.00 Acute cystitis without hematuria (principal)
CPT/HCPCS: 81001; 81003; 87086; 87088; 87186; 99212

== ENCOUNTER 2024-08-15 10:00 | Outpatient (RCR) | payer MEDICARE, OTHER, SELFPAY | END 2024-08-16 07:22 | disposition home or self-care (01) | LOC: HO.PR 10:00 | PROVIDERS: PCP Internal Medicine; Visit Provider Internal Medicine Pulmonary Disease | DX: J44.9 Chronic obstructive pulmonary disease, unspecified (principal) | CPT/HCPCS: 94618; 94625; 99212 ==

== ENCOUNTER 2024-10-09 10:37 | Outpatient (REF) | payer MEDICARE, OTHER, SELFPAY ==
--- NOTE | ~2024-10-09 | MM_ITS ---
EXAMINATION: DXA BONE DENSITY AXIAL HISTORY: M81.0 - Age-related osteoporosis without current pathological fracture TECHNIQUE: WAKU WAKU ? Dual energy absorptiometry (DEXA) of the lumbar spine, total right hip, and femoral neck was performed. COMPARISON: Comparison is made with the prior examination dated 03/01/2022. FINDINGS: The bone mineral density of the lumbar spine is 1.299 with a T-score of 1.1, and a Z-score of 2.3. This is indicative of normal bone mineral density.- This represents a BMD change of 1.5% compared to the prior exam. This is not statistically significant. The bone mineral density of the right total hip is 0.905 with a T-score of -0.8, and a Z-score of 0.8. This is indicative of normal bone mineral density. This represents a BMD change of 3.9% compared to the prior exam. This is statistically significant. The bone mineral density of the right femoral neck is 0.886 with a T-score of -1.1, and a Z-score of 0.7. This is indicative of osteopenia. This represents a BMD change of -4.7% compared to the prior exam. FRACTURE RISK: The FRAX index suggests a ten year probability of major osteoporotic fracture of 19.5%, and of hip fracture 9.9%. MM/XR DEXA axial skeleton IMPRESSION: Based on bone mineral density, and according to World Health Organization (WHO) criteria, the diagnosis is consistent with osteopenia. All bone density values are in grams per centimeter squared (g/cm2). Statistically, 68% of repeat scans fall within 1 SD (+/- 0.010 g/cm2 for AP spine L1-L4) and 1 SD (+/- 0.012 g/cm2 for femur total) FRAX is a trademark of the [employer]'s [place] for Metabolic Bone Disease, a World Health Organization (WHO) Collaborating Center. Electronically signed by: Lennox Hernandez MD 10/09/2024 11:26 AM EDT
--- OUTSIDE RECORDS SUMMARY | 2024-10-09 12:31 | XMS_ITS ---
Author Organization [facility] Address [address] [facility] [address] [place] [address] Care Team Providers Care Oyster Buyer Name Role Phone Sejal Stern MD Primary Care Provider Lennox Chauhan [phone] REASON FOR VISIT Patient presents today for gerd Encounters Encounter Location Date Provider Diagnosis [facility] [address] [address] 05/09/2023 Lennox Cardenas Plan Of Treatment No Information Progress Notes * TENNILLE BOWDENNDOB:02/1945 (79 yo F)Acc No.[id number]:05/09/2023 Progress Notes Patient:?TENNILLE BOWDEN N Provider:?Lennox Cardenas MD :1945???Age:78 Y???Sex:Female D ate:05/09/2023 Address:[address] [place], [place] [id number] Pcp:Sejal Stern MD Subjective: * Chief Complaints: * ???1. Patient presents today for gerd. * Medical History:? Objective: * Vitals:? Assessment: Plan: * Treatment: * * The named appointment provid er may or may not be the originator of this progress note, and it is not deemed complete until electronically signed by the appointment provider. Sign off status: Pending * Provider:?Lennox Cardenas MD Date:? 023 Generated for Printi ng/Faxing/eTransmitting on:?10/09/2024 12:31 PM EDT
--- OUTSIDE RECORDS SUMMARY | 2024-10-09 12:32 | XMS_ITS | Patient Health Record ---
Author Organization [facility] Address [address] [facility] [address] Care Team Providers Care Mushroom Press Operator Name Role Phone Jaylen Naqvi Unavailable [phone] Allergies Allergen (clinical drug ingredient) Drug/Non Drug Allergy documented on EMR Reaction Allergy Type Onset Date Status ciprofloxacin Ciprofloxacin Unknown Drug Allergy Active Substance with 4-nkkadpz-0-methylgl utaryl-coenzyme A reductase inhibitor mechanism of action [...] 04/26/2024 Encounters Encounter Location Date Provider Diagnosis [employer] [address] [place] [address] 04/26/2024 Jaylen Naqvi Conjunctivitis due t o [...] End Date MEDICARE B [address] [place] [address] [id number] FIONA BOWDEN Self - patient is the insured 9 [employer] [address] [place] [address] [phone] [id number] FIONA BOWDEN Self - patient is the insured 9 Medical (General) History Medical History History ICD Code COPD Neuropathy
--- OUTSIDE RECORDS SUMMARY | 2024-10-09 12:32 | XMS_ITS | Patient Health Record ---
Author Organization [facility] Address [address] [place] [address] Care Team Providers Care Tube And Manifold Builder Name Role Phone Po Sejal KU Primary Care Provider Lennox Chauhan [phone] Reason For Referral No Information Medications Medication SIG (Take, Route, Frequency, Duration) Notes Start Date End Date Status Tylenol Arthritis Pain Active Omeprazole 20 MG 1 capsule Orally as needed Active Magnesium Active Aspirin 81mg Active Colyte with Flavor Packs 240 GM as directed Orally as directed for 1 dose 04/30/2013 Active Multivitamins Active CeleBREX Active Calcium Active Vitamin B Complex Ac tive Problems Problem Type SNOMED Code ICD Code Onset Dates Problem Status W/U Status Risk Notes Problem Esophageal reflux (044051712) Esophageal reflux (530.81) Active confirmed Problem Heartburn (63946762) Heartburn (787.1) Active confirmed Problem Screening for malignant neoplasm of colon (308419380) Screen for colon cancer (V76.51) Active confirmed Plan Of Treatment Future Test Test Name Order Date COLONOSCOPY 04/30/2013 Insurance Providers Payer Name Payer Address Payer Phone Subscriber Number Group Number Insured Name Patient Relationship to Insured Coverage Start Date Coverage End Date MEDICARE OF [place] [address] [place] [address] [id number] FIONA BOWDEN Self - patient is the insured [employer] [address] [place] [address] [id number] FIONA BOWDEN Self - patient is the insured Medical (General) History Medical History History ICD Code GERD-EGD in 07/[id number]-Nrq-vqoxd HH-no [place] tt's Breast cancer-as below Denies [place],DM,CVA,Lung disease,renal dise ase Neg colonoscopy in 09/[address] Katrina orellana Surgical History Surgery Date(Month/Year) Left radical mastectomy for cancer in ea rly 1989' Lower back surgery [facility] Left hip replacement 05/2012
--- OUTSIDE RECORDS SUMMARY | 2024-10-09 12:32 | XMS_ITS ---
Author Organization [facility] Address [address] [place] [address] Care Team Providers Care Education Diagnostician Name Role Phone Po Sejal KU Primary Care Provider Lennox Chauhan [phone] REASON FOR VISIT cancel OV Encounters Encounter Location Date Provider Diagnosis [facility] [address] [place] [address] 05/05/2023 Lennox Cardenas Plan Of Treatment No Information Progress Notes * TENNILLE BOWDENNDOB:02/1945 (78 yo F)Acc No.[id number]:05/05/2023 Patient:?KAL TENNILLE Martinez :1945???Age:78 Y???Sex:Female Address:[address] [place] [address], [address] * true * Date:? Generated for Printi mane/Bina/eTransmitting on:?10/09/2024 12:32 PM EDT
--- OUTSIDE RECORDS SUMMARY | 2024-10-09 12:32 | XMS_ITS ---
Author Organization [facility] Address [address] [facility] [place] [address] Care Team Providers Care Screen Room Operator Name Role Phone GrisalisJaylen phillips Unavailable [phone] Allergies Allergen (clinical drug ingredient) Drug/Non Drug Allergy documented on EMR Reaction Allergy Type Onset Date Status ciprofloxacin Ciprofloxacin Unknown Drug Allergy Active Substance with 0-puvhaab-7-methylgl utaryl-coenzyme A reductase inhibitor mechanism of action [...] 04/26/2024 Encounters Encounter Location Date Provider Diagnosis [employer] [address] [facility] [place] [address] 04/26/2024 Jaylen Naqvi Conjunctivitis due t o [...] * TENNILLE BOWDENN DDOB: (79 yo F)Acc No.[id number]:04/26/2024 Patient:?TENNILLE BOWDEN N D Provider:?Jaylen Naqvi MD :1945???Age:79 Y???Sex:Female D ate:04/26/2024 Address:[address] [place], [place] [id number] Subjective: * Chief Complaints: * ???Conjunctivitis for [...] Naqvi MD Date:?06/2023 Generated for Winnie gilliam/Bina/eTransmitting on:?10/09/2024 12:31 PM EDT History and Physical Notes * HPI (History [...]
== END 2024-10-09 10:38 | disposition home or self-care (01) ==
LOC: HO.MAMMO 10:37
PROVIDERS: PCP Internal Medicine; Visit Provider Internal Medicine
DX: M81.0 Age-related osteoporosis without current pathological fracture (principal); M85.80 Other specified disorders of bone density and structure, unspecified site
CPT/HCPCS: 77080

== ENCOUNTER → 2024-10-09 11:00 | Outpatient (BNV) | payer MEDICARE, OTHER, SELFPAY | PROVIDERS: PCP Internal Medicine; Visit Provider Radiology Diagnostic Radiology | DX: E28.39 Other primary ovarian failure (principal) | CPT/HCPCS: 77080 ==

== ENCOUNTER 2024-12-02 14:13 | Outpatient (AMB) | payer MEDICARE, OTHER, SELFPAY ==
[2024-12-02 14:33] VITALS: BP 118/62; PULSE 64; O2SAT 96; BMI 29.1
--- NOTE | 2024-12-02 14:33 | A.OFFVIS_ITS ---
Vital Signs 12/02/24 14:33 Height 5 ft 7 in Weight 186 lb BMI 29.1 BP 118/62 Blood Pressure Location Rt brachial Position Sitting Pulse 64 Pulse Source Pulse Oximeter Pulse Oximetry (%) 96 Oxygen Delivery Method Room Air Intake Visit Reasons: copd Allergies ciprofloxacin [Cipro] Allergy (Unknown, Verified 12/02/24 14:36) Unknown pravastatin Allergy (Unknown, Verified 12/02/24 14:36) Unknown rosuvastatin [Crestor] Allergy (Unknown, Verified 12/02/24 14:36) leg cramps simvastatin Allergy (Unknown, Verified 12/02/24 14:36) Unknown HPI HPI copd: Details: 79-year-old lady, former 20 pack-year smoker, now followed for moderate COPD and dyspnea on exertion. She continues on Anoro and albuterol MDI with good control of her symptoms. She denies recent exacerbations. Her CT chest showed 7 and 6 mm pulmonary nodules. [facility] Medical History Hx of basal cell carcinoma Age-related osteoporosis without current pathological fracture Annual physical exam Radial scar of right breast Abnormal ultrasound of breast Breast density Vaginal wall prolapse Breast cancer, left Subclinical hypothyroidism Hip osteoarthritis Hypercholesterolemia Skin cancer, basal cell Peripheral neuropathy Osteopenia GERD (gastroesophageal reflux disease) Surgical History History of cataract surgery History of lumbar surgery History of left hip replacement History of tonsillectomy and adenoidectomy History of left mastectomy History of cholecystectomy Family History Father CVD (cardiovascular disease) Mother Uterine cancer Brother In good health Daughter In good health Brother Cancer Social History Housing: House Alcohol intake: current Comment: once a week 2 drinks Patient Tobacco Use Status: Former Tobacco user Tobacco use type: Cigarette Years Smoked: 37 years old e-Cigarette/Vaping Use: Never Used Second Hand Smoke Exposure: No service: No Current occupational status: retired Cognitive needs: No Hearing needs: No Vision needs: Yes Female Reproductive History Menstrual Age of Menarche: 11 Review of Systems Const Denies daytime sleepiness, Denies excessive sweating, Denies fatigue, Denies fever(s), Denies lethargy, Denies malaise, Denies night sweats, Denies snoring and Denies weight loss Eyes Denies blurry vision and Denies itchy eyes ENT Denies nasal congestion, Denies post nasal drip, Denies sinus pain, Denies sinus pressure and Denies other ( Thrush) Card Denies chest pain, Denies pedal edema, Denies dyspnea, Denies orthopnea and Denies paroxysmal nocturnal dyspnea Resp Denies cough, Denies hemoptysis, Denies excessive phlegm production, Denies dyspnea, Denies snoring and Denies wheezing GI Denies abdominal pain and Denies heartburn Musc Denies myalgias, Denies arthralgias and Denies joint swelling Skin/Breast Denies rash Neuro Denies memory loss and Denies seizure-like activity Psych Denies abnormal sleep pattern, Denies anxiety and Denies memory loss Endo Denies excessive sweating, Denies fatigue and Denies heat intolerance Martínez/Lymph Denies easy bruising Aller/Immun Denies itchy eyes, Denies seasonal rhinorrhea and Denies wheezing Physical Exam Vital Signs: Last Vital Signs Pulse 64 12/02/24 14:33 BP 118/62 12/02/24 14:33 Pulse Ox 96 12/02/24 14:33 Oxygen Delivery Method Room Air 12/02/24 14:33 BMI result Body Mass Index 29.1 Const General: no acute distress and alert Nutritional Appearance: not obese Orientation/consciousness: Other orientation findings ( oriented) HEENT Head: Yes atraumatic Eyes General: appearance normal, both eyes and all related structures Sclerae: sclerae normal EOM: EOMs intact bilaterally Neck Neck: Yes supple Lymphatic: no lymphadenopathy noted Resp Effort & Inspection: normal respiratory effort and no use of accessory muscles Auscultation: clear to auscultation bilaterally Cardio Rate: regular rate Rhythm: regular rhythm Heart sounds: no gallops, no murmurs and no rubs Skin General skin exam: other ( warm) Extrem General: No clubbing, No cyanosis and No edema Assessment & Plan Assessment & Plan (1) COPD (chronic obstructive pulmonary disease): Code(s): J44.9 - Chronic obstructive pulmonary disease, unspecified Category: Medical Qualifiers: COPD type: emphysema Emphysema type: other Qualified Code(s): J43.8 - Other emphysema Plan: Well controlled on current regimen of Anoro and albuterol MDI. Continue current regimen. (2) Pulmonary nodules: Code(s): R91.8 - Other nonspecific abnormal finding of lung field Category: Medical Plan: Results of CT chest reviewed, underlying 7 mm and under pulmonary nodules. Will repeat CT chest in 12 months from prior. Orders: Orders CT chest wo IV con 05/04/25 R91.8 - Other nonspecific abnormal finding of lung field Coding Level of Care Code Est Pt Level 4 (69684) Diagnoses Other emphysema J43.8 COPD type: emphysema Emphysema type: other Pulmonary nodules R91.8
--- OUTSIDE RECORDS SUMMARY | 2024-12-02 16:10 | XMS_ITS | Patient Health Record ---
Author Organization [facility] Address [address] [place] [address] Care Team Providers Care Quality Lab Assoc Name Role Phone Sejal Stern Primary Care Provider Margie Collado Unavailable [phone] Allergies Allergen (clinical drug ingredient) Drug/Non Drug Allergy documented on EMR Reaction Allergy Type Onset Date Status ciprofloxacin Cipro toes numb Drug Allergy Act lesly Reason For Referral No Information Medications Medication SIG (Take, Route, Fr equency, Duration) Notes Start Date End Date Status Omeprazole Active Gabapentin Active vitamin Active Centrum Active CeleBREX 200 MG Orally Acti ve Social History Tobacco Use: Social History Observation Description Date Details (start date - stop date) Former Smoker NA - NA Tobacco Use/Smoking Question Answer Notes Are you a: former smoker When did you start smoking? smoked for 20 years Additional Findings: Tobacco User Heavy cigarett e smoker (20-39 cigs/day) Additional Findings: Tobacco Non-User Ex-heavy c igarette smoker (20-30/day) Alcohol Screen Question Answer Notes Did you have a drink containing alcohol in the p ast year? Yes Points 0 Interpretation Negative Tobacco use other than smoking: Question Answer Notes Are you an other tobacco user? No Problems Problem Type SNOMED Code ICD Code Onset Dates Problem Status W/U Status Risk Notes Problem [id number] Neuropathy (G62.9) Active confirmed Plan Of Treatment No Information Insurance Providers Payer Name Payer Address Payer Phone Subscriber Number Group Number Insured Name Patient Relationship to Insured Coverage Start Date Coverage End Date Medicare National Govt Sv[employer] [address] [place] [phone] [id number] Abigail Stiles Self - patient is the insured [facility] [address] [place] [address] [id number] Abigail Stiles Self - patient is the insured Medical (General) History Medical History History ICD Code osteoarthritis Back,Hip,and Knee pain Cholesterol Cancer Gall bladder problems Numbness Reflux ( GERD) Sciatica Measles Mumps Chicken pox Joint implants/screws Transfusions Surgical History Surgery Date(Month/Year) gall bladder 10/1980 left hip replacement 05/2012 right mastectomy 04/2012
== END 2024-12-02 14:55 | disposition home or self-care (01) ==
LOC: HO.HPS 14:14
PROVIDERS: PCP Internal Medicine; Visit Provider Internal Medicine Pulmonary Disease
DX: J43.8 Other emphysema (principal); R91.8 Other nonspecific abnormal finding of lung field
CPT/HCPCS: 99214

== ENCOUNTER → 2024-12-02 14:13 | Outpatient (BNVA) | payer MEDICARE, OTHER, SELFPAY | PROVIDERS: PCP Internal Medicine; Visit Provider Internal Medicine Pulmonary Disease | DX: J43.8 Other emphysema (principal); R91.8 Other nonspecific abnormal finding of lung field | CPT/HCPCS: 99212 ==

== ENCOUNTER 2025-03-13 06:55 | Outpatient (REF) | payer MEDICARE, OTHER, SELFPAY ==
--- OUTSIDE RECORDS SUMMARY | 2025-03-13 06:57 | XMS_ITS | Patient Health Record ---
Author Organization [facility] [employer] [facility] Address [address] [place] [address] Care Team Providers Care Benefit Director Name Role Phone Jaylen Naqvi Unavailable [phone] Allergies Allergen (clinical drug ingredient) Drug/Non Drug Allergy documented on EMR Reaction Allergy Type Onset Date Status ciprofloxacin Ciprofloxacin Unknown Drug Allergy Active Substance with 2-erpghsv-6-methylgl utaryl-coenzyme A reductase inhibitor mechanism of action (substance) Statins Muscle cramps Drug Allergy Active Reason For Referral No Information Medications Medication SIG (Take, Route, Fr equency, Duration) Notes Start Date End Date Status Erythromycin 5 MG/GM 1 application into the lower eyelid of affected eye Ophthalmic Four times a day; Duration: 7 days 04/26/2024 Active amLODIPine Besylate Active [...] 04/26/2024 Encounters Encounter Location Date Provider Diagnosis [facility] [employer] [address] [place] [address] 04/26/2024 Jaylen Naqvi Conjunctivitis due t o [...] End Date MEDICARE B [address] [place] [address] [id number] FIONA BOWDEN Self - patient is the insured [employer] [address] [place] [address] [id number] FIONA BOWDEN Self - patient is the insured 9 Medical (General) History Medical History History ICD Code COPD Neuropathy
--- OUTSIDE RECORDS SUMMARY | 2025-03-13 06:57 | XMS_ITS | Patient Health Record ---
Author Organization [facility] Address [address] [place] [address] Care Team Providers Care Air Brake Worker Name Role Phone Sejal Stern Primary Care Provider Margie Collado Unavailable [phone] Allergies Allergen (clinical drug ingredient) Drug/Non Drug [...] Problem Status W/U Status Risk Notes Problem Neuropathy (433880966) Neuropathy (G62.9) Active confirmed Plan Of Treatment No Information Insurance Providers Payer Name Payer Address Payer Phone Subscriber Number Group Number Insured Name Patient Relationship to Insured Coverage Start Date Coverage End Date Medicare National Govt Svcs Inc [address] [place] [phone] [id number] Abigail Stiles Self - patient is the insured [facility] [address] [place] [address] [phone] [id number] Abigail Stiles Self - patient is the insured Medical (General) History Medical History History ICD Code osteoarthritis Back,Hip,and Knee pain Cholesterol Cancer Gall bladder problems Numbness Reflux ( GERD) Sciatica Measles Mumps Chicken pox Joint implants/screws Transfusions Surgical History Surgery Date(Month/Year) gall bladder 10/1980 left hip replacement 05/2012 right mastectomy 04/2012
--- OUTSIDE RECORDS SUMMARY | 2025-03-13 06:57 | XMS_ITS | Clinical Summary ---
Author Organization [facility] Address [address] [place] [id number] Phone Care Team Providers Care Route Returner Name Role Phone Sejal Stern MD Primary Care Provider [phone] Allergies Active Allergy Reactions Criticality Noted Date Comments Piroxicam Other (See Comments) 12/13/2018 nosebleeds Shellfish Containing Products GI Upset 12/13/2018 Medications celecoxib (CELEBREX) 200 MG capsule Take 200 mg by mouth 2 (two) times a day. Active omeprazole (PRILOSEC) 10 MG capsule Take 10 mg by mouth daily as needed. Active gabapentin (NEURONTIN) 100 MG capsule Take 100 mg by mouth nightly at bedtime. Active Active Problems Problem Noted Date Diagnosed Date Basal cell carcinoma of left nasal tip 9 Family History Medical History Relation Comments Heart disease Father Cancer Mother Kidney disease Mother Relation Status Comments Father Mother Social History Tobacco Use Types Packs/Day Years Used Date Smoking Tobacco: Former Cigarettes 1 20 1 95 - 1977 Smokeless Tobacco: Never Alcohol Use Standard Drinks/Week Comments Yes 2 (1 standard drink = 0.6 oz pur e alcohol) 1-2/week Education Answer Date Recorded Are you interested in more education? Not on caitlyn e 10/21/2022 Are you concerned about learning? Not on file 10/21/2022 No 10/21/2022 No 10/21/2022 Digital Access Answer Date Recorded No 11/19/2022 No 11/19/2022 No 11/19/2022 Reliable internet access at home? Not on file 11/19/2022 Device with a working camera? Not on file Comments No Sex and Gender Information Value Date Recorded Sex Assigned at Not on file Legal Sex Female 9:19 AM EDT Gender Identity Not on file Sexual Orientation Not on file Last Filed Vital Signs Vital Sign Reading Time Taken Comments Blood Pressure 108/56 12/18/2018 3:00 PM EDT Pulse 67 12/18/2018 3:00 PM EDT Temperature 37.1 C (98.8 F) 12/18/2018 8:56 AM EDT Respiratory Rate 16 12/18/2018 1:00 PM EDT Oxygen Saturation 98% 12/18/2018 3:00 PM EDT Inhaled Oxygen Concentration - - Weight 77.1 kg (170 lb) 12/18/2018 8:56 AM EDT Height 172.7 cm (5' 7.99 ) 12/18/2018 8:56 AM ED T Body Mass Index 25.85 12/18/2018 8:56 AM EDT Plan of Treatment Health Maintenance Due Date Last Done Comments Adult Td,Tdap Booster 1944 DEPRESSION SCREENING 1956 ZOSTER VACCINES (1 of 2) 02/01/1994 OSTEOPOROSIS SCREENING INITIAL (ONE-TIME) 02/01/2009 RSV VACCINE (1 - 1-dose 75+ series) 02/01/2019 PNEUMOCOCCAL VACCINES (50+ years) (2 of 2 - PCV) 01/12/2021 01/13/2020 INFLUENZA VACCINE (#1) 2025 , 04/15/2019, 04/11/2017, Additional history exists COVID-19 VACCINE (3 - 2024- season) 2025 08/21/2020, 07/29/2020 HEPATITIS A VACCINES Aged Out No long er eligible based on patient's age to complete this topic HIB VACCINES Aged Out No longer eligi ble based on patient's age to complete this topic MENINGOCOCCAL VACCINES (ACWY) Aged Out No longer eligible based on patient's age to complete this topic MENINGOCOCCAL VACCINES (B) Aged Out N o longer eligible based on patient's age to complete this topic Medical Devices Implanted Type Area Tree Deadener Device Identifier Shelf Expiration Date Model / Serial / Lot Left Breast Reconstruction Left Hip Replacement Insurance MEDICARE PART A & B [employer] MEDIC[employer] SUPPLEMENT Member Subscriber Plan / Payer (Ef fective 2017-Present) Name:Abigail Stiles Relation to Subscriber:Self Name:Abigail Stiles Payer ID:[id number] (NA) Type:Indemnity Address: [address] [address] MEDICARE PART A & B [employer] MEDICARE SUPPLEMENT MEDICARE PART A & B [facility] EXTENSION MEDICARE SUPPLEMENT Member Subscriber Plan / Payer (Ef fective 2017-) Name:Abigail Stiles Relation to Subscriber:Self Name:Abigail Stiles Payer ID:[id number] (NAIC) Type:Indemnity Address: [address] [address] MEDICARE PART A & B [facility] EX[employer]ION MEDICARE SUPPLEMENT MEDICARE PART A & B [facility] EX[employer]ENSION MEDICARE SUPPLEMENT MEDICARE PART A & B [employer] MED[employer]ARE SUPPLEMENT Member Subscriber Plan / Payer (Ef fective 2017-Present) Name:Go Abigail Relation to Subscriber:Self Name:Go, Abigail Payer ID:[id number] (NAIC) Type:Indemnity Address: [address] [address] MEDICARE PART A & B Member Subscriber Plan / Payer (Ef fective 2009-Present) Name:GoAbigail Member ID:[id number] Relation to Subscriber:Self Name:Go Abigail Subscriber ID:[id number] Payer ID:[id number] Group ID:Not on file Type:Medicare Address: [employer] [address] [place] [id number] [facility] EXTENSION MEDICARE SUPPLEMENT Member Subscriber Plan / Payer (Ef fective 2017-Present) Name:Abigail Stiles Relation to Subscriber:Self Name:Abigail Stiles Payer ID:[id number] (NAIC) Type:Indemnity Address: [address] [address] MEDICARE PART A & B [employer] MEDICARE SUPPLEMENT Member Subscriber Plan / Payer (Ef fective 2017-Present) Name:Abigail Stiles Relation to Subscriber:Self Name:Abigail Stiles Payer ID:[id number] (NAIC) Type:Indemnity Address: [address] [address] MEDICARE PART A & B [employer] MEDICARE SUPPLEMENT [place] [phone] Advance Directives For more information, please contact: [phone] (9AM - 5PM Rayna/[facility], Monday-Monday) * Full Code (Presumed) (Latest Code Status on File) Date Activated Date Inactivated Comments 12/18/2018 9:00 AM 12/19/2018 4:02 AM Care Teams Route Returner Relationship Specialty Start Date End Date Sejal Stern MD [address] [place] [address] PCP - General Internal Medicine 11/01/18 Additional Source Comments The information contained in this document represents components of the legal health record. It is not the complete legal health record.[facility]
--- OUTSIDE RECORDS SUMMARY | 2025-03-13 06:58 | XMS_ITS | Encounter Summary ---
Author Organization [facility] Address [address] [place] [address] Phone Care Team Providers Care Locker Room Attendant Name Role Phone Sejal Stern MD Primary Care Provider [phone] Encounter Details Date Type Department Care Team (Late st Contact Info) Description 12/18/2018 Procedure Pass [place] Admitting Dept - Virtual Department [address] [place] [address] Social History Tobacco Use Types Packs/Day Years Used Date Smoking Tobacco: Former Cigarettes 1 20 1 958 - 1977 Smokeless Tobacco: Never Alcohol Use Standard Drinks/Week Comments Yes 2 (1 standard drink = 0.6 oz pur e alcohol) 1-2/week Comments No Sex and Gender Information Value Date Recorded Sex Assigned at Not on file Legal Sex Female 9:19 AM EDT Gender Identity Not on file Sexual Orientation Not on file documented as of this encounter Plan of Treatment Not on file documented as of this encounter Visit Diagnoses Not on filedocumented in this encounter Care Teams Locker Room Attendant Relationship Specialty Start Date End Date Sejal Stern MD [address] [place] [address] PCP - General Internal Medicine 11/01/18 documented as of this encounter Additional Source Comments The information contained in this document represents components of the legal health record. It is not the complete legal health record.[facility]
--- OUTSIDE RECORDS SUMMARY | 2025-03-13 06:58 | XMS_ITS | Patient Health Record ---
Author Organization [facility] Address [address] [place] [address] Care Team Providers Care Editor City Name Role Phone Po Sejal KU Primary Care Provider Lennox Chauhan [phone] Reason For Referral No Information Medications Medication [...] W/U Status Risk Notes Problem Esophageal reflux (977687847) Esophageal reflux (530.81) Active confirmed Problem Heartburn (80057293) Heartburn (787.1) Active confirmed Problem Screening for malignant neoplasm of colon (633953618) Screen for colon cancer (V76.51) Active confirmed Plan Of Treatment Future Test Test Name Order Date COLONOSCOPY 04/30/2013 Insurance Providers Payer Name Payer Address Payer Phone Subscriber Number Group Number Insured Name Patient Relationship to Insured Coverage Start Date Coverage End Date MEDICARE OF [place] [address] [place] [address] [id number] FIONA BOWDEN Self - patient is the insured [facility] IN[facility]MNITY [address] [place] [address] [id number] FIONA BOWDEN Self - patient is the insured Medical (General) History Medical History History ICD Code GERD-EGD in [id number]-no [place] tt's Breast cancer-as below Denies NH,DM,CVA,Lung disease,renal dise ase Neg colonoscopy in 09/[address] Katrina orellana Surgical History Surgery Date(Month/Year) Left radical mastectomy for cancer in ea rly 1989' Lower back surgery [facility] Left hip replacement 05/2012
[2025-03-13 08:40] LABS: MANUAL DIFF FLAG NO
[2025-03-13 08:45] LABS: Hematocrit 38.4 % (37.0-47.0); Hemoglobin 12.7 g/dl (12.0-16.0); Imm Gran Abs Auto 0.05 X10*3/uL (0.00-0.03); Imm Gran Pct Auto 0.6 % (0.0-0.4); Lymphocytes Absolute Auto 2.3 X10*3/uL (1.2-4.9); Mean Corpuscular HGB Conc 33.1 g/dl (31.0-35.0); Mean Corpuscular Hemoglobin 30.7 pg (27.0-33.0); Mean Corpuscular Volume 92.8 fL (80.0-98.0); NRBC Abs Auto 0.000 X10*3/uL (0.0-0.012); NRBC Pct Auto 0.0 /100WBC (0.0-0.2); Platelet Count 470 X10*3/uL (160-400); Red Blood Count 4.14 X10*6/uL (4.20-5.50); White Blood Count 8.5 X10*3/uL (4.8-10.8)
[2025-03-13 10:50] LABS: Alanine Aminotransferase 22 U/L (0-31); Albumin Level 4.2 g/dL (3.5-5.0); Alkaline Phosphatase 59 U/L (39-117); Anion Gap 10 (12-20); Aspartate Amino Transferase 29 U/L (5-31); Blood Urea Nitrogen 14 mg/dL (9-16); Calcium 9.0 mg/dL (8.4-10.2); Carbon Dioxide 28 mmol/L (22-29); Chloride 106 mmol/L (96-108); Cholesterol 179 mg/dL (<200); Estimated Glomerular Filt Rate > 60; HDL Cholesterol 44 mg/dL (>40); Potassium 3.6 mmol/L (3.3-5.1); Sodium 140 mmol/L (135-145); Total Protein 6.4 g/dL (6.5-8.0); Triglycerides 87 mg/dL (<150)
[2025-03-13 10:53] LABS: Free T4 (Free Thyroxine) 1.06 ng/dL (0.71-1.85); Thyroid Stimulating Hormone 3.64 uIU/mL (0.32-4.0)
[2025-03-13 11:03] LABS: Folate 10.1 ng/mL (> or = 4.0); Vitamin B12 298 pg/mL (200-900)
[2025-03-13 13:26] LABS: Appearance Urine Clear; Glucose Urine UA Negative (Negative); PH 6.5 (5.0-9.0); Specific Gravity - Urine 1.010 (1.005-1.025); UMIC TRIGGER UACC YES
[2025-03-13 14:10] LABS: UACC Culture Trigger YES
== END 2025-03-13 06:56 | disposition home or self-care (01) ==
LOC: HO.HMGCLDS 06:55
PROVIDERS: PCP Internal Medicine; Visit Provider Internal Medicine
DX: Z23 Encounter for immunization (principal); Z00.00 Encounter for general adult medical examination without abnormal findings; H61.23 Impacted cerumen, bilateral; E78.00 Pure hypercholesterolemia, unspecified; R30.0 Dysuria; I10 Essential (primary) hypertension; M85.80 Other specified disorders of bone density and structure, unspecified site; K21.9 Gastro-esophageal reflux disease without esophagitis; C50.912 Malignant neoplasm of unspecified site of left female breast; J43.8 Other emphysema; R91.8 Other nonspecific abnormal finding of lung field; R00.2 Palpitations; Z79.899 Other long term (current) drug therapy
CPT/HCPCS: 36415; 69210; 80053; 80061; 81001; 82306; 82607; 82746; 84439; 84443; 85025; 87086; 90471; 90714; 99397

== ENCOUNTER 2025-03-13 12:24 | Outpatient (AMB) | payer MEDICARE, OTHER, SELFPAY ==
[2025-03-13 12:30] VITALS: BP 128/68; PULSE 66; O2SAT 97; BMI 29.1
--- NOTE | 2025-03-13 12:30 | A.OFFPC_ITS ---
Vital Signs 03/13/25 12:30 Height 5 ft 7 in Weight 186 lb BMI 29.1 BP 128/68 Blood Pressure Location Rt brachial Position Sitting Pulse 66 Pulse Source Pulse Oximeter Pulse Oximetry (%) 97 Oxygen Delivery Method Room Air Intake Visit Reasons: Annual Exam Allergies ciprofloxacin (Cipro) Allergy (Unknown, Verified 03/13/25 12:31) Unknown pravastatin Allergy (Unknown, Verified 03/13/25 12:31) Unknown rosuvastatin (Crestor) Allergy (Unknown, Verified 03/13/25 12:31) leg cramps simvastatin Allergy (Unknown, Verified 03/13/25 12:31) Unknown Medication List - Last Reconciled 03/13/25 by Sejal Stern MD albuterol sulfate 90 mcg/actuation (Ventolin HFA) 2 puffs inhalation Q6H PRN amlodipine 2.5 mg PO DAILY calcium carbonate-vitamin D3 600 mg-5 mcg (200 unit) (Calcium 600 + D(3)) 1 tab PO DAILY celecoxib 200 mg PO DAILY cholecalciferol (vitamin D3) 50 mcg PO DAILY ezetimibe 10 mg PO DAILY gabapentin 100 mg PO BEDTIME magnesium glycinate mg PO multivitamin 1 tab PO DAILY pantoprazole 40 mg PO DAILY umeclidinium-vilanterol 62.5-25 mcg/actuation (Anoro Ellipta) 1 ea inhalation DAILY Tobacco use date assessed: 03/13/25 Fall risk assessment: No Falls in past year Last assessed Fall Risk: 03/13/25 Dental Screening Dental Screen Date: 03/13/25 Did you have a dental visit in the last 12 months?: No Did you have a dental problem in the last 6 months where you did not have access to dental care?: No Was dental information given to patient?: Patient has dentist [facility] Medical History Hx of basal cell carcinoma Age-related osteoporosis without current pathological fracture Annual physical exam Radial scar of right breast Abnormal ultrasound of breast Breast density Vaginal wall prolapse Breast cancer, left Subclinical hypothyroidism Hip osteoarthritis Hypercholesterolemia Skin cancer, basal cell Peripheral neuropathy Osteopenia GERD (gastroesophageal reflux disease) Surgical History History of cataract surgery History of lumbar surgery History of left hip replacement History of tonsillectomy and adenoidectomy History of left mastectomy History of cholecystectomy Family History Father CVD (cardiovascular disease) Mother Uterine cancer Brother In good health Daughter In good health Brother Cancer Social History Housing: House Alcohol intake: current Comment: once a week 2 drinks Patient Tobacco Use Status: Former Tobacco user Tobacco use type: Cigarette Years Smoked: 37 years old e-Cigarette/Vaping Use: Never Used Second Hand Smoke Exposure: No service: No Current occupational status: retired Cognitive needs: No Hearing needs: No Vision needs: Yes Female Reproductive History Menstrual Age of Menarche: 11 Questionnaire PHQ-9 Over the last 2 weeks, how often have you been bothered by any of the following problems? 1. Little interest or pleasure in doing things: not at all 2. Feeling down, depressed, or hopeless: not at all 3. Trouble falling or staying asleep, or sleeping too much: not at all 4. Feeling tired or having little energy: not at all 5. Poor appetite or overeating: not at all 6. Feeling bad about yourself - or that you are a failure or have let yourself or your family down: not at all 7. Trouble concentrating on things, such as reading the newspaper or watching television: not at all 8. Moving or speaking so slowly that other people could have noticed. Or the opposite - being so fidgety or restless that you have been moving around a lot more than usual: not at all 9. Thoughts that you would be better off or of hurting yourself in some way: not at all Total score: 0 Depression Screening Interpretation: Negative Depression Screening Done: Yes Source: Developed by Drs. Lennox Stoll, Lulu Mar, Jerrell Newman and colleagues, with an educational jessie from [employer]. Thrive Questionnaire Date Thrive assessed: 03/13/25 I am a: Patient What is your living situation today?: I have a steady place to live Within the past 12 months, did the food you bought not last and you didn't have the money to get more?: Never true Within the past 12 months, did you worry whether your food would run out before you got money to buy more?: Never true Do you have trouble paying for medicines?: No Do you have trouble getting transportation to medical appointments?: No Do you have trouble paying your heating and electricity bill?: No Do you have trouble taking care of your child, family member or friend?: No Do you have trouble with day-to-day activities such as bathing, preparing meals, shopping, managing finances, etc.?: No Are you currently unemployed and looking for a job?: No Are you interested in more education?: No Please select the resources that you would like help with: None Currently or been in a relationship where the following occur: No concerns reported THRIVE Score: 0 AUDIT C Alcohol Use Questionnaire (AUDIT-C) 1. How often do you have a drink containing alcohol?: 2-4 times a month 2. How many drinks containing alcohol do you have on a typical day when you are drinking?: 1 or 2 3. How often do you have six or more drinks on one occasion?: Never Total Score: 2 SERG-7 AMB Questionnaire SERG-7 Date SERG - 7 assessed: 03/13/25 Feeling nervous, anxious, or on edge: 0 = Not at all Not being able to stop or control worryin = Not at all Worrying too much about different things: 0 = Not at all Trouble relaxin = Not at all Being so restless that it is hard to sit still: 0 = Not at all Becoming easily annoyed or irritable: 0 = Not at all Feeling afraid as if something awful might happen: 0 = Not at all Total SERG-7 score (0-4 normal; 5-9 mild; 10-14 moderate; 15-21 severe): 0 Source: Developed by Drs. Lennox Stoll, Lulu Mar, Jerrell Newman and colleagues, with an educational jessie from [employer]. Review of Systems Const Denies poor appetite and Denies weakness Eyes Denies no additional complaints ENT Reports Normal hearing present, Denies dizziness, Denies nasal congestion, Denies tinnitus and Denies sore throat Card Denies chest pain, Denies syncope, Denies rapid heart rate and Denies dyspnea Resp Denies cough and Denies dyspnea GI Denies change in stool character, Reports constipation, Denies diarrhea, Denies nausea and Denies vomiting Denies urinary frequency, Denies difficulty voiding and Denies dysuria Neuro Reports Normal hearing present, Denies confusion, Denies dizziness, Denies syncope and Denies weakness Psych Denies confusion Physical exam (Primary Care) Vital Signs: Last Vital Signs Pulse 66 03/13/25 12:30 BP 128/68 03/13/25 12:30 Pulse Ox 97 03/13/25 12:30 Oxygen Delivery Method Room Air 03/13/25 12:30 BMI result Body Mass Index 29.1 Tobacco/Smoking Status: Tobacco use Status Tobacco use date assessed 03/13/25 03/13/25 12:37 Patient Tobacco Use Status Former Tobacco user 03/13/25 12:37 Tobacco use type Cigarette 03/13/25 12:37 e-Cigarette/Vaping Use Never Used 03/13/25 12:37 PHQ-9: PHQ-9 Score PHQ-9: Total score 0 03/13/25 13:25 Depression Screening Interpretation: Negative Thrive Assessment: Date of Thrive Assessment Date Thrive assessed 03/13/25 03/13/25 12:37 Currently or been in a relationship where the following occur: No concerns reported Const General: No confusion Orientation/consciousness: No confusion HENMT Other: impacted cerumen bilateral Head: Yes normocephalic Ears: external ears normal Face and sinus: Yes normal facial exam Mouth: moist mucous membranes Throat: Yes tonsils normal Eyes Conjunctivae: conjunctivae normal Pupils: Equal, round and reactive pupils present and Pupil accommodation reflex normal Direct Ophthalmoscopy: normal light reflex Neck Neck: No lymphadenopathy Thyroid: Thyroid normal Chest Chest palpation & inspection: normal inspection of the chest Resp Effort & Inspection: normal respiratory effort and no audible wheezes Auscultation: clear to auscultation bilaterally, no crackles, no wheezes and lung sounds not diminished Cardio Rate: regular rate Rhythm: regular rhythm Peripheral pulses: radial pulses present and dorsalis pedis present GI Palpation (GI): no masses Auscultation: normal bowel sounds and normoactive bowel sounds Rectal Exam - Female: deferred Skin General skin exam: no rashes or lesions noted Rashes: no rashes Neuro General: No confusion Cranial nerves: Yes Equal, round and reactive pupils present and Yes Normal hearing present Cognition (Neuro): normal cognition Gait exam (Neuro): Normal gait present Motor exam (neuro): 5/5 motor strength present throughout Deep tendon reflexes (DTR's): Right brachioradialis reflex intensity grade: 2+, Left brachioradialis reflex intensity grade: 2+, Right patellar reflex intensity grade: 2+ and Left patellar reflex intensity grade: 2+ Extrem General: No edema Office Procedures Cerumen Removal From which ear canal was the cerumen removed: bilateral Removal: otoscope w/curette and cerumen loop/spoon Notes: patient tolerated procedure well, no complications and ear canal clear [id number] Wax Removal by Spoon/Curette Immunizations Tenivac (PF) 5 Lf unit-2 Lf unit/0.5 mL intramuscular syringe Performing Provider: Sejal Stern MD Performing Location: [facility] [place] [facility] Administered by: Ana Cristina Mccain CMA on 03/13/25 13:25 Dose Route Admin Location Dispensed Lot Number Expiration Date [employer] Special Items 0.5 mL IM Right Deltoid 0.5 mL [id number] 10/23/26 [id number] [employer] Total Dispensed Waste 0.5 mL 0 % VIS Given Date VIS Provided VIS Publication Date 03/13/25 Single Vaccine 21 Eligibility Eligibility Date Funding Source Not [facility] Eligible 03/13/25 Private Coding Level of Care Code Est Pt Prev Care >65y(67128) Diagnoses Physical exam, annual Z00.00 Essential hypertension I10 Hypertension type: essential hypertension Hypercholesterolemia E78.00 Osteopenia M85.80 Gastroesophageal reflux disease without esophagitis K21.9 Esophagitis presence: without esophagitis Malignant neoplasm of left female breast, unspecified estrogen receptor status, unspecified site of breast C50.912 Breast location: unspecified site of breast Estrogen receptor status: unspecified Patient sex: female Other emphysema J43.8 COPD type: emphysema Emphysema type: other Pulmonary nodules R91.8 Palpitations R00.2 Impacted cerumen of both ears H61.23 CPT Codes Office Procedure - CPT: 09411-[id number] Wax Removal by Spoon/Curette ([id number]) Assessment & Plan Assessment & Plan (1) Physical exam, annual: Code(s): Z00.00 - Encounter for general adult medical examination without abnormal findings Category: Medical Plan: Patient is advised to eat healthy, keep well hydrated, keep active and have derrell quate sleep. (2) Hypertension: Code(s): I10 - Essential (primary) hypertension Category: Medical Qualifiers: Hypertension type: essential hypertension Qualified Code(s): I10 - Essential (primary) hypertension Plan: Continue with blood pressure medication. Decrease salt intake and exercise patient on amlodipine 2.5 mg once a day (3) Hypercholesterolemia: Code(s): E78.00 - Pure hypercholesterolemia, unspecified Category: Medical Plan: Avoid fried foods, chicken skin, eggs, butter margarine, pastries and meat. Be it pork or beef they have a lot of cholesterol LDL goal of less than 130 and triglyceride of less than 150 (4) Osteopenia: Comment: February Code(s): M85.80 - Other specified disorders of bone density and structure, unspecified site Category: Medical Plan: Discussed about calcium and vitamin-D. Up-to-date with bone density (5) GERD (gastroesophageal reflux disease): Code(s): K21.9 - Gastro-esophageal reflux disease without esophagitis Category: Medical Qualifiers: Esophagitis presence: without esophagitis Qualified Code(s): K21.9 - Gastro-esophageal reflux disease without esophagitis Plan: Avoid the foods that causes that usually spicy foods, tomato products, juices, coffee, soda and foods that your sensitive to. After eating do not lie down, allow 3-4 hours before in lie down. And keep the head of bed above 30 degrees to avoid the acid from going up. (6) Breast cancer, left: Comment: 1991 Code(s): C50.912 - Malignant neoplasm of unspecified site of left female breast Category: Medical Qualifiers: Breast location: unspecified site of breast Estrogen receptor status: unspecified Patient sex: female Qualified Code(s): C50.912 - Malignant neoplasm of unspecified site of left female breast Plan: Patient is seeing Hematology Oncology your yearly and up-to-date with mammogram (7) COPD (chronic obstructive pulmonary disease): Code(s): J44.9 - Chronic obstructive pulmonary disease, unspecified Category: Medical Qualifiers: COPD type: emphysema Emphysema type: other Qualified Code(s): J43.8 - Other emphysema Plan: Continue with the inhaler (8) Pulmonary nodules: Code(s): R91.8 - Other nonspecific abnormal finding of lung field Category: Medical Plan: Patient has a follow-up CAT scan in April (9) Palpitations: Code(s): R00.2 - Palpitations Category: Medical (10) Impacted cerumen of both ears: Code(s): H61.23 - Impacted cerumen, bilateral Category: Medical Plan History of Present Illness The patient is an 80-year-old female presenting for an annual physical examination. She has a history of Gastroesophageal Reflux Disease (GERD), managed with pantoprazole, and reports occasional heart palpitations and elevated blood pressure related to GERD. Hypertension is managed with amlodipine, and hypercholesterolemia is monitored with an LDL goal of less than 130 mg/dL. The patient has a history of left breast cancer treated with mastectomy and continues with annual mammograms and hematology oncology follow-ups. Osteopenia is managed with calcium and vitamin D supplements, with the last bone density test in September 2024. Chronic Obstructive Pulmonary Disease (COPD) is managed with an Anoro inhaler, and she is scheduled for a follow-up CAT scan. Bilateral knee osteoarthritis is managed with Euflexxa injections. She experienced cystitis in July and is under treatment for recurrent bladder infections. Blood work showed mild thrombocytosis and low vitamin B12, for which she is taking supplements. Health Maintenance - Annual physical examination conducted - Mammogram up to date, with annual screenings - Colonoscopy completed - CAT scan for lungs scheduled for April - Bone density test last conducted in September 2024 - Vaccinations discussed: Flu shot recommended in March, tetanus shot due, shingles vaccine discussed Social History - Alcohol: Consumes a glass of wine once a week - Smoking: Denies current use - Exercise: Encouraged to maintain activity despite arthritis Review of Systems - Cardiovascular: Reports palpitations related to GERD. Denies chest pain, syncope. - Respiratory: Denies dyspnea, cough, hemoptysis. - Gastrointestinal: Reports GERD symptoms. Denies nausea, vomiting. - Neurological: Denies dizziness, syncope. - Genitourinary: Reports recurrent bladder infections. Denies dysuria. - Musculoskeletal: Reports knee pain due to osteoarthritis. - Hematologic: Denies easy bruising or bleeding. Physical Exam General: Cooperative, healthy appearing, comfortable, no acute distress and well developed Orientation: Patient oriented x3 Limitations: No limitations Head: Normal to inspection Ears: Hearing impaired, right ear blocked with earwax Nose: Normal external nose present Face and sinus: Normal facial exam Eyes: Appearance normal, both eyes and all related structures Neck: Normal visual inspection and Yes full ROM Respiratory: Normal respiratory effort and able to speak in complete sentences. Clear to auscultation bilaterally Cardiovascular: Regular rate and rhythm. Normal S1 and S2 GI: Normal to inspection. Soft to palpation and nontender Skin: No rashes or lesions noted Neuro: Patient oriented x3 Extremities: Normal to inspection Results - Labs: Normal blood count, mild thrombocytosis, low vitamin B12 at 298 pg/mL - Imaging: CAT scan for lungs scheduled for April - Screening: Mammogram up to date, colonoscopy completed Plan Patient was informed and verbally consented to the use of an ambient scribe for clinic note documentation during this visit. 1. Gastroesophageal Reflux Disease (Gerd) The patient is advised to continue pantoprazole for GERD management, with dietary modifications to avoid triggers such as large meals and certain foods. She is instructed to elevate the head of the bed and avoid lying down immediately after eating. 2. Hypertension Hypertension is managed with amlodipine 2.5 mg daily, and the patient is advised to monitor her blood pressure regularly. 3. Hypercholesterolemia The patient is advised to maintain her LDL cholesterol below 130 mg/dL through diet and medication as needed. 4. Osteopenia Osteopenia is managed with calcium and vitamin D supplementation, and the patient is up to date with bone density testing. 5. Chronic Obstructive Pulmonary Disease (Copd) The patient is advised to continue using the Anoro inhaler daily and has been referred for pulmonary rehabilitation. A follow-up CAT scan is scheduled for April to monitor lung status. 6. Breast Cancer (History Of Left Breast Cancer In 1991) The patient continues with annual mammograms and is followed by hematology oncology yearly. 7. Osteoarthritis Of The Knees The patient receives Euflexxa injections for knee osteoarthritis and is encouraged to maintain physical activity. 8. Cystitis The patient is under treatment for recurrent bladder infections and is advised to report any new symptoms. 9. Low Vitamin B12 The patient is advised to take joxq-ikp-tlzrzep vitamin B12 supplements to address low levels. 10. Thrombocytosis Mild thrombocytosis is noted, and the patient is advised to continue monitoring blood counts. Discussion Notes During the visit, I discussed with the patient the management of her GERD, emphasizing the importance of dietary modifications and medication adherence. We reviewed her hypertension and cholesterol management plans, ensuring she understands the goals and medication regimen. I also addressed her COPD management, including the use of inhalers and the upcoming CAT scan. We discussed her osteoarthritis treatment with Euflexxa injections and the importance of maintaining physical activity. I advised her on the need for vitamin B12 supplementation due to low levels and the potential impact of her medications on absorption. Patient Instructions - Continue taking pantoprazole as prescribed and avoid trigger foods for GERD. - Monitor blood pressure regularly and take amlodipine daily. - Maintain LDL cholesterol below 130 mg/dL through diet and medication. - Use Anoro inhaler daily and attend pulmonary rehabilitation sessions. - Schedule and attend the follow-up CAT scan for the lungs in April. - Take calcium and vitamin D supplements for osteopenia. - Report any new symptoms of bladder infections to the healthcare provider. - Take rnnx-vmh-glvvtbt vitamin B12 supplements as advised. - Maintain physical activity despite arthritis. Orders: Orders Complete Blood Count Auto Diff 6 Months E78.00 - Pure hypercholesterolemia, unspecified Comprehensive Met. Panel 6 Months E78.00 - Pure hypercholesterolemia, unspecified Magnesium 6 Months E78.00 - Pure hypercholesterolemia, unspecified Vitamin B12 and Folate 6 Months E78.00 - Pure hypercholesterolemia, unspecified Vitamin D 25-OH Total 6 Months E78.00 - Pure hypercholesterolemia, unspecified UA CC w/rflx Micro + Cult 6 Months E78.00 - Pure hypercholesterolemia, unspecified, R30.0 - Dysuria ECG 3 day holter monitor Today R00.2 - Palpitations Free T4 (Free Thyroxine) 6 Months E78.00 - Pure hypercholesterolemia, unspecified Thyroid Stimulating Hormone 6 Months E78.00 - Pure hypercholesterolemia, unspecified Lipid Panel 6 Months E78.00 - Pure hypercholesterolemia, unspecified Td Immunization Today Z23 - Encounter for immunization
== END 2025-03-13 13:21 | disposition home or self-care (01) ==
LOC: HO.HMCH 12:25
PROVIDERS: PCP Internal Medicine; Visit Provider Internal Medicine
DX: Z00.00 Encounter for general adult medical examination without abnormal findings (principal); I10 Essential (primary) hypertension; C50.912 Malignant neoplasm of unspecified site of left female breast; J43.8 Other emphysema; E78.00 Pure hypercholesterolemia, unspecified; M85.80 Other specified disorders of bone density and structure, unspecified site; K21.9 Gastro-esophageal reflux disease without esophagitis; R91.8 Other nonspecific abnormal finding of lung field; R00.2 Palpitations; H61.23 Impacted cerumen, bilateral; Z23 Encounter for immunization

== ENCOUNTER → 2025-03-21 09:45 | Outpatient (REF) | payer MEDICARE, OTHER, SELFPAY ==
--- NOTE | 2025-03-21 09:48 | HM_ITS ---
Conclusion: 1. Patient was monitored for total period of 3 days 2. Baseline was normal sinus rhythm with average heart of 70 beats per minute 3. Intermittent episodes of atrial fibrillation noted with total burden of 3 point 5% with longest episode lasting 28 minutes and 33 seconds with a maximum heart rate of 149 beats per minute 4. Frequent PACs noted with total burden of 1.76% 5. Frequent PVCs noted with total burden of 1.82% with 1 3 beat yunier of nonsustained VT at 173 beats per minute 6. Patient marked the counter 5 times, 4 of the episodes correlating with paroxysmal AFib MTDD
--- OUTSIDE RECORDS SUMMARY | 2025-03-21 10:48 | XMS_ITS | Patient Health Record ---
Author Organization [facility], d[facility]b/a [facility] Address [address] [place] [address] Care Team Providers Care Political Aide Name Role Phone Jaylen Naqvi Unavailable [phone] Allergies Allergen (clinical drug ingredient) Drug/Non Drug Allergy documented on EMR Reaction Allergy Type Onset Date Status ciprofloxacin Ciprofloxacin Unknown Drug Allergy Active Substance with 5-bchvypv-3-methylgl utaryl-coenzyme A reductase inhibitor mechanism of action [...] 04/26/2024 Encounters Encounter Location Date Provider Diagnosis [facility] [address] [place] [address] 04/26/2024 Jaylen Naqvi Conjunctivitis due t o [...] End Date MEDICARE B [address] [place] [address] [id number] FIONA BOWDEN Self - patient is the insured [address] [employer] [address] [place] [address] [id number] FIONA BOWDEN Self - patient is the insured 9 Medical (General) History Medical History History ICD Code COPD Neuropathy
--- OUTSIDE RECORDS SUMMARY | 2025-03-21 10:48 | XMS_ITS | Patient Health Record ---
Author Organization [facility] Address [address] [place] [address] Care Team Providers Care Aircraft Mechanic Armament Name Role Phone Sejal Stern Primary Care Provider Margie Collado Unavailable [phone] Allergies Allergen (clinical drug ingredient) Drug/Non Drug [...] Status W/U Status Risk Notes Problem Neuropathy ([id number]) Neuropathy (G62.9) Active confirmed Plan Of Treatment No Information Insurance Providers Payer Name Payer Address Payer Phone Subscriber Number Group Number Insured Name Patient Relationship to Insured Coverage Start Date Coverage End Date Medicare National [employer] [address] [place] [phone] [id number] Abigail Stiles Self - patient is the insured [facility] [address] [place] [address] [phone] [id number] Abigail Stiles Self - patient is the insured Medical (General) History Medical History History ICD Code osteoarthritis Back,Hip,and Knee pain Cholesterol Cancer Gall bladder problems Numbness Reflux ( GERD) Sciatica Measles Mumps Chicken pox Joint implants/screws Transfusions Surgical History Surgery Date(Month/Year) gall bladder 10/1980 left hip replacement 05/2012 right mastectomy 04/2012
--- OUTSIDE RECORDS SUMMARY | 2025-03-21 10:48 | XMS_ITS | Clinical Summary ---
Author Organization [facility] Address [address] [place] [address] Phone Care Team Providers Care Director Digital Advertising Name Role Phone Sejal Stern MD Primary Care Provider [phone] Allergies Active Allergy Reactions Criticality Noted Date [...] Smoking Tobacco: Former Cigarettes 1 20 1 [id number] Smokeless Tobacco: Never Alcohol Use Standard Drinks/Week [...] this topic Medical Devices Implanted Type Area Concrete Panel Installer Device Identifier Shelf Expiration Date Model / Serial / Lot Left Breast Reconstruction Left Hip Replacement Insurance MEDICARE PART A & B [employer] MEDICARE SUPPLEMENT MEDICARE PART A & B [employer] MEDICARE SUPPLEMENT MEDICARE PART A & B [facility] EXTENSION MEDICARE SUPPLEMENT MEDICARE PART A & B [facility] [employer] MEDICARE SUPPLEMENT MEDICARE PART A & B [facility] [employer] MEDICARE SUPPLEMENT MEDICARE PART A & B [employer] MEDICARE SUPPLEMENT MEDICARE PART A & B Member Subscriber Plan / Payer (Ef fective 2009-Present) Name:GoAbigail Member ID:[id number] Relation to Subscriber:Self Name:Go Abigail Subscriber ID:[id number] Payer ID:[id number] Group ID:Not on file Type:Medicare Address: [employer] [address] [place] [id number] [facility] EXTENSION MEDICARE SUPPLEMENT MEDICARE PART A & B test company MEDICARE SUPPLEMENT MEDICARE PART A & B [employer] MEDICARE SUPPLEMENT [place] [id number] Advance Directives For more information, please contact: [phone] (9AM - 5PM Rayna/[facility], Monday-Monday) * Full Code (Presumed) (Latest Code Status on File) Date Activated Date Inactivated Comments 12/18/2018 9:00 AM 12/19/2018 4:02 AM Care Teams Director Digital Advertising Relationship Specialty Start Date End Date Sejal Stern MD [address] [place] [address] PCP - General Internal Medicine 11/01/18 Additional Source Comments The information contained in this document represents components of the legal health record. It is not the complete legal health record.[facility]
--- OUTSIDE RECORDS SUMMARY | 2025-03-21 10:49 | XMS_ITS | Encounter Summary ---
Author Organization [facility] Address [address] [place] [address] Phone Care Team Providers Care Engraving Plate Maker Name Role Phone Sejal Stern MD Primary Care Provider [phone] Encounter Details Date Type Department Care Team (Late st Contact Info) Description 12/18/2018 Procedure Pass OR Admitting Dept - Virtual Department [address] [place] [address] Social History Tobacco Use Types Packs/Day Years Used Date Smoking Tobacco: Former Cigarettes 1 20 958 - 1977 Smokeless Tobacco: Never Alcohol [...] on filedocumented in this encounter Care Teams Engraving Plate Maker Relationship Specialty Start Date End Date Sejal Stern MD [address] [place] [address] PCP - General Internal Medicine 11/01/18 documented as of this encounter Additional Source Comments The information contained in this document represents components of the legal health record. It is not the complete legal health record.[facility]
--- OUTSIDE RECORDS SUMMARY | 2025-03-21 10:49 | XMS_ITS | Patient Health Record ---
Author Organization [facility] Address [address] [place] [address] Care Team Providers Care Central Sterile Technician Name Role Phone Po Sejal KU Primary Care Provider Lennox Chauhan [phone] Reason For Referral No Information Medications Medication [...] W/U Status Risk Notes Problem Esophageal reflux (840202208) Esophageal reflux (530.81) Active confirmed Problem Heartburn (46908408) Heartburn (787.1) Active confirmed Problem Screening for malignant neoplasm of colon (662170550) Screen for colon cancer (V76.51) Active confirmed Plan Of Treatment Future Test Test Name Order Date COLONOSCOPY 04/30/2013 Insurance Providers Payer Name Payer Address Payer Phone Subscriber Number Group Number Insured Name Patient Relationship to Insured Coverage Start Date Coverage End Date MEDICARE OF [place] [address] [place] [address] [id number] FIONA BOWDEN Self - patient is the insured [facility] INDEMNITY [address] [place] [address] [id number] FIONA BOWDEN Self - patient is the insured Medical (General) History Medical History History ICD Code GERD-EGD in [id number] HH-no [place] tt's Breast cancer-as below Denies [place],DM,CVA,Lung disease,renal dise ase Neg colonoscopy in 09/[address] Katrina orellana Surgical History Surgery Date(Month/Year) Left radical mastectomy for cancer in ea rly 1989' Lower back surgery [facility] Left hip replacement 05/2012
== END ==
LOC: HO.CARD 09:45
PROVIDERS: PCP Internal Medicine; Visit Provider Internal Medicine
DX: R00.2 Palpitations (principal)
CPT/HCPCS: 93242

== ENCOUNTER → 2025-03-21 09:48 | Outpatient (BNV) | payer MEDICARE, OTHER, SELFPAY | PROVIDERS: PCP Internal Medicine; Visit Provider Internal Medicine Cardiovascular Disease | DX: I49.1 Atrial premature depolarization (principal); I49.3 Ventricular premature depolarization; I48.91 Unspecified atrial fibrillation | CPT/HCPCS: 93244 ==

== ENCOUNTER 2025-04-14 15:30 | Outpatient (AMB) | payer MEDICARE, OTHER, SELFPAY ==
--- NOTE | 2025-04-14 15:57 | MHC.PC.OV ---
Vital Signs 04/14/25 15:58 Height 5 ft 7 in Weight 190 lb 4 oz BMI 29.8 BP 138/70 Blood Pressure Location Rt brachial Position Sitting Pulse 88 Pulse Source Pulse Oximeter Temp 97.7 F Temp Source Temporal Artery Scan Pulse Oximetry (%) 95 Oxygen Delivery Method Room Air Intake Visit Reasons: paroxysmal atrial fibrillation Allergies ciprofloxacin (Cipro) Allergy (Unknown, Verified 04/14/25 15:59) Unknown pravastatin Allergy (Unknown, Verified 04/14/25 15:59) Unknown rosuvastatin (Crestor) Allergy (Unknown, Verified 04/14/25 15:59) leg cramps simvastatin Allergy (Unknown, Verified 04/14/25 15:59) Unknown Tobacco use date assessed: 04/14/25 Fall risk assessment: No Falls in past year Last assessed Fall Risk: 04/14/25 Dental Screening Dental Screen Date: 04/14/25 Did you have a dental visit in the last 12 months?: Yes Did you have a dental problem in the last 6 months where you did not have access to dental care?: No Was dental information given to patient?: Patient has dentist [facility] Medical History Hx of basal cell carcinoma Age-related osteoporosis without current pathological fracture Annual physical exam Radial scar of right breast Abnormal ultrasound of breast Breast density Vaginal wall prolapse Breast cancer, left Subclinical hypothyroidism Hip osteoarthritis Hypercholesterolemia Skin cancer, basal cell Peripheral neuropathy Osteopenia GERD (gastroesophageal reflux disease) Surgical History History of cataract surgery History of lumbar surgery History of left hip replacement History of tonsillectomy and adenoidectomy History of left mastectomy History of cholecystectomy Family History Father CVD (cardiovascular disease) Mother Uterine cancer Brother In good health Daughter In good health Brother Cancer Social History Housing: House Alcohol intake: current Comment: once a week 2 drinks Patient Tobacco Use Status: Former Tobacco user Tobacco use type: Cigarette Years Smoked: 37 years old e-Cigarette/Vaping Use: Never Used Second Hand Smoke Exposure: No service: No Current occupational status: retired Cognitive needs: No Hearing needs: No Vision needs: Yes Female Reproductive History Menstrual Age of Menarche: 11 Questionnaire PHQ-9 Over the last 2 weeks, how often have you been bothered by any of the following problems? 1. Little interest or pleasure in doing things: not at all 2. Feeling down, depressed, or hopeless: not at all 3. Trouble falling or staying asleep, or sleeping too much: not at all 4. Feeling tired or having little energy: not at all 5. Poor appetite or overeating: not at all 6. Feeling bad about yourself - or that you are a failure or have let yourself or your family down: not at all 7. Trouble concentrating on things, such as reading the newspaper or watching television: not at all 8. Moving or speaking so slowly that other people could have noticed. Or the opposite - being so fidgety or restless that you have been moving around a lot more than usual: not at all 9. Thoughts that you would be better off or of hurting yourself in some way: not at all Total score: 0 Depression Screening Interpretation: Negative Depression Screening Done: Yes Source: Developed by Drs. Lennox Stoll, Lulu Mar, Jerrell Newman and colleagues, with an educational jessie from [employer]. Thrive Questionnaire Date Thrive assessed: 03/13/25 I am a: Patient What is your living situation today?: I have a steady place to live Within the past 12 months, did the food you bought not last and you didn't have the money to get more?: Never true Within the past 12 months, did you worry whether your food would run out before you got money to buy more?: Never true Do you have trouble paying for medicines?: No Do you have trouble getting transportation to medical appointments?: No Do you have trouble paying your heating and electricity bill?: No Do you have trouble taking care of your child, family member or friend?: No Do you have trouble with day-to-day activities such as bathing, preparing meals, shopping, managing finances, etc.?: No Are you currently unemployed and looking for a job?: No Are you interested in more education?: No Please select the resources that you would like help with: None Currently or been in a relationship where the following occur: No concerns reported THRIVE Score: 0 AUDIT C Alcohol Use Questionnaire (AUDIT-C) 1. How often do you have a drink containing alcohol?: 2-4 times a month 2. How many drinks containing alcohol do you have on a typical day when you are drinking?: 1 or 2 3. How often do you have six or more drinks on one occasion?: Never Total Score: 2 SERG-7 AMB Questionnaire SERG-7 Date SERG - 7 assessed: 03/13/25 Feeling nervous, anxious, or on edge: 0 = Not at all Not being able to stop or control worryin = Not at all Worrying too much about different things: 0 = Not at all Trouble relaxin = Not at all Being so restless that it is hard to sit still: 0 = Not at all Becoming easily annoyed or irritable: 0 = Not at all Feeling afraid as if something awful might happen: 0 = Not at all Total SERG-7 score (0-4 normal; 5-9 mild; 10-14 moderate; 15-21 severe): 0 Source: Developed by Drs. Lennox Stoll, Lulu Mar, Jerrell Newman and colleagues, with an educational jessie from [employer]. Physical exam (Primary Care) Vital Signs: Last Vital Signs Temp 97.7 F 04/14/25 15:58 Pulse 88 04/14/25 15:58 BP 138/70 04/14/25 15:58 Pulse Ox 95 04/14/25 15:58 Oxygen Delivery Method Room Air 04/14/25 15:58 BMI result Body Mass Index 29.8 Tobacco/Smoking Status: Tobacco use Status Tobacco use date assessed 04/14/25 04/14/25 16:02 Patient Tobacco Use Status Former Tobacco user 04/14/25 16:02 Tobacco use type Cigarette 04/14/25 16:02 e-Cigarette/Vaping Use Never Used 04/14/25 16:02 PHQ-9: PHQ-9 Score PHQ-9: Total score 0 04/14/25 16:02 Depression Screening Interpretation: Negative Thrive Assessment: Date of Thrive Assessment Date Thrive assessed 03/13/25 04/14/25 16:02 Currently or been in a relationship where the following occur: No concerns reported Const General: alert; No acute distress Eyes Conjunctivae: conjunctivae normal Resp Auscultation: clear to auscultation bilaterally Cardio Rate: regular rate Rhythm: regular rhythm GI Inspection: Yes normal to inspection Extrem General: Yes normal to inspection and No edema Coding Level of Care Code Est Pt Level 4 (52045) Diagnoses Atrial fibrillation I48.91 Essential hypertension I10 Hypertension type: essential hypertension Gastroesophageal reflux disease without esophagitis K21.9 Esophagitis presence: without esophagitis Assessment & Plan Assessment & Plan (1) Atrial fibrillation: Code(s): I48.91 - Unspecified atrial fibrillation Category: Medical Plan: Discussion about anticoagulation and the risk of strokes (2) Hypertension: Code(s): I10 - Essential (primary) hypertension Category: Medical Qualifiers: Hypertension type: essential hypertension Qualified Code(s): I10 - Essential (primary) hypertension Plan: Continue with blood pressure medication. Decrease salt intake and exercise on amlodipine 2.5 mg once a day (3) GERD (gastroesophageal reflux disease): Code(s): K21.9 - Gastro-esophageal reflux disease without esophagitis Category: Medical Qualifiers: Esophagitis presence: without esophagitis Qualified Code(s): K21.9 - Gastro-esophageal reflux disease without esophagitis Plan: Avoid the foods that causes that usually spicy foods, tomato products, juices, coffee, soda and foods that your sensitive to. After eating do not lie down, allow 3-4 hours before in lie down. And keep the head of bed above 30 degrees to avoid the acid from going up. Plan History of Present Illness The patient is an 80-year-old female presenting for management of multiple chronic conditions including atrial fibrillation and hypertension. The patient has a history of Gastroesophageal Reflux Disease (GERD), hypertension, and hypercholesterolemia. She was diagnosed with left breast cancer in 1991, which has been in remission. She also has Chronic Obstructive Pulmonary Disease (COPD) and osteopenia, with a noted decrease in bone density in September 2024. Atrial fibrillation was last evaluated on March 13, 2025, with intermittent episodes confirmed by Holter monitoring. Blood work from March 13 showed normal blood count with mild thrombocytosis, normal electrolytes, renal function, blood sugar, and liver function. LDL cholesterol was measured at 118 mg/dL, and there was a noted deficiency in vitamin B12. Health Maintenance Social History Review of Systems - Cardiovascular: Reports palpitations. Denies chest pain. Physical Exam Results - Labs: Normal blood count with mild thrombocytosis, normal electrolytes, renal function, blood sugar, liver function, LDL cholesterol at 118 mg/dL, low vitamin B12. - Diagnostics: Holter monitor showing intermittent episodes of atrial fibrillation. Plan Patient was informed and verbally consented to the use of an ambient scribe for clinic note documentation during this visit. 1. Atrial Fibrillation The patient has intermittent episodes of atrial fibrillation confirmed by Holter monitoring. Discussion included anticoagulation therapy and stroke risk management. 2. Hypertension The patient is on amlodipine 2.5 mg once daily for blood pressure management. 3. Gastroesophageal Reflux Disease (Gerd) The patient has a history of GERD, and a reflux management plan was discussed. Discussion Notes I discussed with the patient the management of atrial fibrillation, including the use of anticoagulation to mitigate stroke risk. We also reviewed her blood pressure management plan, which includes amlodipine 2.5 mg daily. Additionally, we addressed her GERD management plan. Patient Instructions - Continue taking amlodipine 2.5 mg once daily as prescribed. - Follow the reflux management plan as discussed. - Monitor for any new or worsening symptoms and report them promptly. Orders: Orders RT home sleep study Today I48.91 - Unspecified atrial fibrillation Medications: New apixaban (Eliquis) 5 mg PO BID 60 tabs 2RF I48.91 - Unspecified atrial fibrillation Discontinued celecoxib Discontinued Reason: Change Referral Type 200 mg PO DAILY 90 caps 3RF I10 - Essential (primary) hypertension
[2025-04-14 15:58] VITALS: BP 138/70; PULSE 88; TEMP 36.5; O2SAT 95; BMI 29.8
--- OUTSIDE RECORDS SUMMARY | 2025-04-14 19:45 | XMS_ITS | Encounter Summary ---
Author Organization [facility] Address [address] [place] [address] Phone Care Team Providers Care Storeroom Clerk Name Role Phone Sejal Stern MD Primary Care Provider [phone] Encounter Details Date Type Department Care Team (Late st Contact Info) Description 12/18/2018 Procedure Pass OR Admitting Dept - Virtual Department [address] [place] [address] Social History Tobacco Use Types Packs/Day Years [...] on filedocumented in this encounter Care Teams Storeroom Clerk Relationship Specialty Start Date End Date Sejal Stern MD [address] [place] [address] PCP - General Internal Medicine 11/01/18 documented as of this encounter Additional Source Comments The information contained in this document represents components of the legal health record. It is not the complete legal health record.[facility]
--- OUTSIDE RECORDS SUMMARY | 2025-04-14 19:45 | XMS_ITS | Clinical Summary ---
Author Organization [facility] Address [address] [place] [address] Phone Care Team Providers Care Equestrian Trainer Name Role Phone Sejal Stern MD Primary Care Provider [phone] Allergies Active Allergy Reactions Criticality Noted Date [...] Used Date Smoking Tobacco: Former Cigarettes 1 1 951977 Smokeless Tobacco: Never Alcohol Use [...] this topic Medical Devices Implanted Type Area Blind Teacher Device Identifier Shelf Expiration Date Model / Serial / Lot Left Breast Reconstruction Left Hip Replacement Insurance MEDICARE PART A & B [employer] MEDICARE SUPPLEMENT MEDICARE PART A & B [employer] MEDICARE SUPPLEMENT MEDICARE PART A & B [facility] EXTENSION MEDICARE SUPPLEMENT MEDICARE PART A & B [facility] EXTENSION MEDICARE SUPPLEMENT MEDICARE PART A & B [facility] EXTENSION MEDICARE SUPPLEMENT MEDICARE PART A & B [employer] MEDICARE SUPPLEMENT MEDICARE PART A & B Member Subscriber Plan / Payer (Ef fective 2009-Present) Name:GoAbigail Member ID:[id number] Relation to Subscriber:Self Name:Go Abigail Subscriber ID:[id number] Payer ID:[id number] Group ID:Not on file Type:Medicare Address: [employer] [address] [place] [id number] [facility] EXTENSION MEDICARE SUPPLEMENT MEDICARE PART A & B [employer] MEDICARE SUPPLEMENT MEDICARE PART A & B [employer] EXTENSION MEDICARE SUPPLEMENT [place] [id number] Advance Directives For more information, please contact: [phone] (9AM - 5PM Rayna/[facility], Monday-Monday) * Full Code (Presumed) (Latest Code Status on File) Date Activated Date Inactivated Comments 12/18/2018 9:00 AM 12/19/2018 4:02 AM Care Teams Equestrian Trainer Relationship Specialty Start Date End Date Sejal Stern MD [address] [place] [address] PCP - General Internal Medicine 11/01/18 Additional Source Comments The information contained in this document represents components of the legal health record. It is not the complete legal health record.[facility]
== END 2025-04-14 16:21 | disposition home or self-care (01) ==
LOC: HO.HMCH 15:31
PROVIDERS: PCP Internal Medicine; Visit Provider Internal Medicine
DX: I48.91 Unspecified atrial fibrillation (principal); I10 Essential (primary) hypertension; K21.9 Gastro-esophageal reflux disease without esophagitis

== ENCOUNTER → 2025-04-14 15:30 | Outpatient (BNVA) | payer MEDICARE, OTHER, SELFPAY | PROVIDERS: PCP Internal Medicine; Visit Provider Internal Medicine | DX: I10 Essential (primary) hypertension (principal); I48.91 Unspecified atrial fibrillation; K21.9 Gastro-esophageal reflux disease without esophagitis; J44.9 Chronic obstructive pulmonary disease, unspecified; M85.80 Other specified disorders of bone density and structure, unspecified site | CPT/HCPCS: 96127; 99212 ==

== ENCOUNTER 2025-04-15 08:13 | Outpatient (AMB) | payer MEDICARE, OTHER, SELFPAY ==
--- OUTSIDE RECORDS SUMMARY | 2025-04-15 08:21 | XMS_ITS | Patient Health Record ---
Author Organization [facility] Address [address] [place] [address] Care Team Providers Care Milieu Manager Name Role Phone Po Sejal KU Primary Care Provider Lennox Chauhan [phone] Reason For Referral No Information Medications Medication SIG (Take, Route, Frequency, Duration) Notes Start Date End Date Status Tylenol Arthritis Pain Active Omeprazole 20 MG 1 capsule Orally as needed Active Magnesium Active Aspirin 81mg Active Colyte with Flavor Packs 240 GM as directed Orally as directed; Duration: 1 dose 04/30/2013 Active Multivitamins Active CeleBREX Active Calcium Active Vitamin B Complex Ac tive Problems Problem Type SNOMED Code ICD Code Onset Dates Problem Status W/U Status Risk Notes Problem Esophageal reflux (540939210) Esophageal reflux (530.81) Active confirmed Problem Heartburn (71959408) Heartburn (787.1) Active confirmed Problem Screening for malignant neoplasm of colon (727141164) Screen for colon cancer (V76.51) Active confirmed Plan Of Treatment Future Test Test Name Order Date COLONOSCOPY 04/30/2013 Insurance Providers Payer Name Payer Address Payer Phone Subscriber Number Group Number Insured Name Patient Relationship to Insured Coverage Start Date Coverage End Date MEDICARE OF [place] [address] [place] [address] [id number] FIONA BOWDEN Self - patient is the insured [facility] [address] [place] [address] [id number] FIONA BOWDEN Self - patient is the insured Medical (General) History Medical History History ICD Code GERD-EGD in [id number] HH-no [place] tt's Breast cancer-as below Denies [place],DM,CVA,Lung disease,renal dise ase Neg colonoscopy in 09/[address] Katrina orellana Surgical History Surgery Date(Month/Year) Left radical mastectomy for cancer in ea rly 1989' Lower back surgery [facility] Left hip replacement 05/2012
--- OUTSIDE RECORDS SUMMARY | 2025-04-15 08:21 | XMS_ITS | Data Portability ---
Author Organization [place] - [facility], [facility] Address [address] [place] [address] Care Team Providers Care Anchor Tack Puller Name Role Phone LYDIA JAMESNURY Primary Care Provider Assessment Encounter Date Assessment Date Assessment LastModified by Organization Details LastModified Time 08/12/2024 08/12/2024 I am seeing the patient today under the supervision of Dr Tan who was available but who did not see the patient. [email or web address] Not available 08/12/2024 07:46:19 Plan of Treatment Reminders Order Date Submit Date Provider Last Modified By Organization Details Last Modified Time Details Appointments None recorded. Lab None recorded. Referral None recorded. Procedures None recorded. Surgeries None recorded. Imaging XR, shoulder, 2 or more view - rm 321 4V right shoulder pain 2024 025 [email or web address] [facility], [address] [facility] [address], [place], [address], 5 08:48:28 Medication Orders None recorded. Patient TargetsNo targets recorded. Patient InstructionsNo instructions recorded. Reason for Referral None Reported. Results Created Date Observation Date Name Description Value Unit Range Abnormal Flag Note LastModifiedBy Organization Detail LastModifiedTime 11/01/19 25 10/31/2024 XR, shoul carlos, 2 or more view http:/ [email or web address] ?Encry pted=s hAaTro YD8dLq bEUv6g %2BXZw aYqtaq 0bqfl% 2Fg9IQ a4ajBk vP9nXo QUaueC m3YtLR FvZlgJ JJ8mAn HZtai3 5y9288 AC0Kla nqBWKW hKiQtr MwF INTERFACE [facility] Office [address] [facility] [address], [place], [address], 10/31/2024 10:22:52 11/01/19 25 10/31/2024 XR, shoul carlos, 2 or more view http:/ [email or web address] ?Encry pted=s hAaTro YD8dLq bEUv6g %2BXZw aYqtaq 0bqfl% 2Fg9IQ a4ajBk vP9nXo QUaueC m3YtLR FvZlgJ JJ8mAn HZtai3 2j8218 AC0Kla nqBWKW hKiQtr MwF INTERFACE [facility] [address] [facility] [address], [place], [address], 10/31/2024 10:22:54 Result Notes Documentation Provider Name and Address Organization Details Recorded Time Xr, Shoulder, 2 Or More View : [email or web address] Encrypted=xzIwQqkJP4yRctW Uv6g%6BLMudXhtnd3pzrk%2Fg 4NDv6xrGqfN3xYySFivmVv0Sd HDNtKcyCHT2jYtYPgxi40h352 3QJ2RxtwqBMRJzAqDzoLdX Not Available [facility] 10/31/2024 10:22: 53 Xr, Shoulder, 2 Or More View : [email or web address] Encrypted=loCoRgbLB6vSkxG Uv6g%5NVSmpWnuny1iede%2Fg 4HHr1vhHttF2qYmDMmeeHi0Xm OPEnKisGVX0fSqDYiex65j719 9XS3LphgvTBJVkHyWvaZvK Not Available [facility] 10/31/2024 10:22: 54 Problems Name Problem SNOMED Code Status Onset Date Resolution Date Notes Provider Name and Address Organization Details Recorded Time No complaints 160674223 Active Status : 'I'; Not Available [facility] 4 09:15:43 Osteoarthr itis of left hip joint 6220438539979 08 Active 2024 Walter Vallejo PA-C [address], [place], [address] , [facility], [facility] 5 07:46:20 Osteoarthr itis of right hip joint 5691781410583 07 Active 2024 Walter Vallejo PA-C [address], [place], [address] , [facility], [facility] 5 07:46:20 Chronic pain of right upper limb 1392871734901 9108 Active 2024 [facility] 5 09:59:21 Problem Notes None recorded. Procedures Surgical History Date Name Laterality Status Provider Name and Address Organization Details Recorded Time 5 Euflexxa Knee Injection completed Stefano Jacobs PA-C [address], [place], [address], [facility], [facility] 01/15/2025 08:06:14 5 Euflexxa Knee Injection completed Stefano Jacobs PA-C [address], [place], [address], [facility], [facility] 01/09/2025 10:16:14 5 Euflexxa Knee Injection completed Stefano Jacobs PA-C [address], [place], [address], [facility], [facility] 12/30/2024 07:50:14 5 Sports Shoulder 4&1 completed Stefano Jacobs PA-C [address], [place], [address], [facility], [facility] 10/31/2024 12:40:28 5 JZHip completed Walter Vallejo PA-C [address], [place], [address], [facility], [facility] 08/12/2024 08:19:37 Imaging Results None recorded. Procedure Notes None recorded. Medical Equipment None Reported. Allergies Allergen ID Allergen Name Allergen Category Reaction Reaction Severity Criticality Documentation Date Start Date Code Code System Note Provider Name and Address Organization Details Recorded Time 36468 Product containin g 3-hydroxy -3-methyl glutaryl- coenzyme A reductase inhibitor (product) medicatio n Not available Not available Not available 08/28/20232017 04965 009 SNOMED Aller gyNam e: 'Stat ins'; Not Available [facility] 12:57:37 Medications Name Sig Start Date Stop Date Status Note LastModified by Organization Details LastModified Time celecoxib 200 mg capsule TAKE 1 CAPSULE BY MOUTH EVERY DAY active Not Available Not Available No t Available amoxicillin 500 mg capsule TAKE 4 CAPSULES BY MOUTH 1 HOUR PRIOR TO DENTAL TREATMENT active Not Available Not Available No t Available amlodipine 2.5 mg tablet TAKE 1 TABLET BY MOUTH ONCE DAILY active Not Available Not Available No t Available sulfamethoxa zole 800 mg-trimethop rim 160 mg tablet TAKE 1 TABLET BY MOUTH EVERY 12 HOURS active Not Available Not Available No t Available amoxicillin 500 mg tablet TAKE 4 TABLETS BY MOUTH 1 HOUR PRIOR TO DENTAL TREATMENT active Not Available Not Available No t Available methenamine hippurate 1 gram tablet TAKE 1 TABLET TWICE A DAY BY ORAL ROUTE FOR 90 DAYS. active Not Available Not Available No t Available cephalexin 500 mg capsule TAKE 1 CAPSULE BY MOUTH TWICE A DAY FOR 7 DAYS active Not Available Not Available No t Available pantoprazole 40 mg tablet,delay ed release TAKE 1 TABLET BY MOUTH EVERY DAY active Not Available Not Available No t Available erythromycin 5 mg/gram (0.5 %) eye ointment ADMINISTER ONE APPLICATION ONTO THE LOWER EYELID OF AFFECTED EYE FOUR TIMES A DAY FOR 7 DAYS active Not Available Not Available N ot Available gabapentin 100 mg capsule TAKE 1 CAPSULE BY MOUTH EVERYDAY AT BEDTIME active Not Available Not Available No t Available estradiol 0.01% (0.1 mg/gram) vaginal cream INSERT 1 GRAM PER VAGINA NIGHTLY X 14 NIGHTS, THEN TWICE WEEKLY active Not Available Not Available No t Available albuterol sulfate HFA 90 mcg/actuatio n aerosol inhaler INHALE 2 PUFFS EVERY 6 HOURS NEEDED FOR SHORTNESS OF BREATH OR WHEEZING active Not Available Not Available Not Available ezetimibe 10 mg tablet TAKE 1 TABLET BY MOUTH DAILY active Not Available Not Available Not Available nitrofuranto in monohydrate/ macrocrystal s 100 mg capsule TAKE 1 CAPSULE BY MOUTH EVERY 12 HOURS FOR 7 DAYS active Not Available Not Available N ot Available Anoro Ellipta 62.5 mcg-25 mcg/actuatio n powder for inhalation 1 PUFF INHALED DAILY active Not Available Not Available No t Available Vitals Date Recorded Body height Body mass index (BMI) Body weight Provider Name and Address Organization Details Last Updated DateTime 08/12/2024 172.72 cm 27.4 kg/m2 03196.63 g Tomi Davidson [facility] 08/12/2024 08:12:12 Date Recorded Body height Provider Name an d Address Organization Details Last Updated DateTime 10/31/2024 172.72 cm CARLITOS WORKMAN [facility] 10/31/2024 09:56:50 Date Recorded Body height Provider Name an d Address Organization Details Last Updated DateTime 01/15/2025 172.72 cm KELLEY JETER [facility] 01/15/2025 14:02:32 Social History None recorded. Functional Status None recorded. Mental Status None recorded. Family History Nothing Reported. Medical History No medical history recorded. Gynecological HistoryNo gynecological history recorded. Obstetrics History GPAL:G 0 P 0 0 0 0 Past Encounters Encounter ID Performer Location Encounter Start Date Encounter Closed Date Diagnosis/Indication Diagnosis SNOMED-CT Code Diagnosis ICD10 Code Diagnosis IMO Codes Diagnosis Note [id number] MAKAYLA Myers [address] [place] [address] 08/12/2024 08:05:55 08/28/2024 15:35:12 Osteoarthritis of right hip joint 4634630187 62992 M16.11 [id number] MAKAYLA Carranza [address] [place] [address] 10/31/2024 09:45:29 11/07/2024 08:48:28 Chronic pain of right upper limb 9135338399 7312823 M25.511 G89.29 [id number] [place] [address] 12/30/2024 10:44:30 01/09/2025 15:13:43 Osteoarthritis of right knee joint 9033054809 85211 M17.11 2118734 Osteoarthr itis of left knee joint 7690497954 05418 M17.12 8957045 [id number] MAKAYLA Carranza [address] [place] [address] 01/06/2025 14:37:04 01/14/2025 14:11:08 Osteoarthritis of right knee joint 7391054126 08348 M17.11 7620760 Osteoarthr itis of left knee joint 9688645522 20496 M17.12 [id number] MAKAYLA Carranza [address] [place] [address] 01/15/2025 13:44:39 01/22/2025 08:26:16 Osteoarthritis of left knee joint 7308372581 60932 M17.12 8709074 Osteoarthr itis of right knee joint 3660567866 57717 M17.11 4845968 Health Concerns Section Related Observation LastModified by Organization Detai ls LastModified Time None Recorded Concern Status LastModified by Organization Details LastModified Time None Recorded Advance Directives Directive None Recorded Payers Insurance Date Sequence Insurance Name Policy Number Policy Cortez Covered Member ID Cortez Member ID Guarantor Name 01/22/2025 2 [facility] [place] [id number] Abigail Stiles [id number] Abigail Stiles 01/15/2025 1 [place] [facility] [employer] Abigail Stiles [id number] Abigail Stiles Notes Date Note Type Note Provider Name and Address Organization Details Recorded Time 10/31/2024 text/html I am seeing the patient today under the supervision of Dr. Wolff who was available but who did not see the patient.Diagnosis: Right shoulder glenohumeral arthritis with rotator cuffThis is a very pleasant 79-year-old female who presents today known to me in the office for new problem of right shoulder pain. Through the month of July and August she has been [place] 1 hour a [place] She reports discomfort about the shoulder pain with overhead reaching and lifting. Pain radiates from the lower portion of her neck on the side down to the lateral aspect of her right shoulder. Does have a history of a number of years ago for frozen shoulder. She is been trying to work on hand at home range of motion exercises.Past Medical/Surgical History/Meds/Allergies reviewed and chartedPhysical Exam:afebrile, vital signs stable, in no apparent distress,oriented to person/place/time.Righ t shoulder exam reveals tenderness to palpation at the AC joint. Near full passive range of motion in all planes. Mild pain at end range of forward flexion and abduction as well as mildly with external rotation. Rotator cuff testing is 5 out of 5 both supraspinatus and infraspinatus with mild irritability supraspinatus testing. She does have a positive impingement test.Left SHOULDER: no redness, warmth, deformity. Range of motion [full in all planes with no stiffness]. Strength [5/5 all muscle groups]. Apprehension [negative]. Impingement sign [negative ]. Acromioclavicular joint [benign with no cross body adduction pain]. Neurovascular Exam wnl.4 views ordered obtained and reviewed today in the office of the right shoulder reveal a type II/III acromion. Moderate glenohumeral arthritis.Impression: Right shoulder arthritis with underlying rotator cuff tendinitis from overusePlan: 1. In regards to her shoulder I have recommended home stretching exercises. Discussed with her and recommended a subacromial cortisone injection. After reviewing risks and benefits and obtaining verbal consent patient's right shoulder subacromial space was injected with 8 cc of Marcaine 1/4% 2 cc of Kenalog 40 mg/cc. She tolerated this procedure well. Postinjection precautions reviewed. Discussed with her ultimate treatment of her shoulder if symptoms persist of reverse shoulder arthroplasty given the extent of her arthritis. Certainly at this point does not need to pursue anything of this magnitude.[facility] speech recognition area relief pilot software was used to create portions of this document. An attempt at proofreading has been made to minimize errors. Please call for corrections. Stefano Jacobs PA-C [address] [place] [address], [place], [address], [facility], [facility] 10/31/2024 12:40:50 12/30/2024 text/html I am seeing the patient today under the supervision of who was available but who did not see the patient. Reason For Visit Patient is here today for Euflexxa injections #1 of bilateral knees. Patient reports no adverse reaction from previous injections. Physical Findings Evaluation of the knees reveal no evidence of infection, no significant joint effusion, no warmth, or erythema. The injection sites are benign. Calves are supple and nontender. 5/5 strength. Some discomfort with range of motion. Assessment Osteoarthritis of knee -bilateral knees Plan After meticulous sterile preparation, they were injected with #1Euflexxa 20MG. Post-injection precautions were reviewed. I recommend ice, restriction of activities and re-evaluation next week for follow up injection. Stefano Jacobs PA-C [address], [place], [address], [facility], [facility] 12/30/2024 11:41:14 01/06/2025 text/html I am seeing the patient today under the supervision of who was available but who did not see the patient. Reason For Visit Patient is here today for Euflexxa injections #2 of bilateral knees. Patient reports no adverse reaction from previous injections. Physical Findings Evaluation of the knees reveal no evidence of infection, no significant joint effusion, no warmth, or erythema. The injection sites are benign. Calves are supple and nontender. 5/5 strength. Some discomfort with range of motion. Assessment Osteoarthritis of knee -bilateral knees Plan After meticulous sterile preparation, they were injected with #2Euflexxa 20MG. Post-injection precautions were reviewed. I recommend ice, restriction of activities and re-evaluation next week for follow up injection. Stefano Jacobs PA-C [address], [place], [address], [facility], [facility] 01/09/2025 10:16:31 01/15/2025 text/html I am seeing the patient today under the supervision of who was available but who did not see the patient. Reason For VisitPatient is here today for Euflexxa injections #3 of bilateral knees. Patient reports no adverse reaction from previous injections. Physical Findings Evaluation of the knees reveal no evidence of infection, no significant joint effusion, no warmth, or erythema. The injection sites are benign. Calves are supple and nontender. 5/5 strength. Some discomfort with range of motion. Assessment Osteoarthritis of knee -bilateral knees Plan After meticulous sterile preparation, they were injected with #3Euflexxa 20MG. Post-injection precautions were reviewed. I recommend ice, restriction of activities and re-evaluation next week for follow up injection. Stefano Jacobs PA-C [address] [facility] [address], [place], [address], [facility] 01/16/2025 11:21:49 OBGyn Episode No OBEpisode recorded.
--- OUTSIDE RECORDS SUMMARY | 2025-04-15 08:21 | XMS_ITS | Patient Health Record ---
Author Organization [facility] Address [address] [place] [address] Care Team Providers Care Paralegal Name Role Phone Sejal Stern Primary Care Provider Margie Collado Unavailable [phone] Allergies Allergen (clinical drug ingredient) Drug/Non Drug [...] Status W/U Status Risk Notes Problem Neuropathy ([id number]) Neuropathy (G62.9) Active confirmed Plan Of Treatment No Information Insurance Providers Payer Name Payer Address Payer Phone Subscriber Number Group Number Insured Name Patient Relationship to Insured Coverage Start Date Coverage End Date Medicare National Govt Sv[employer] [address] [place] [phone] [id number] Abigail Stiles Self - patient is the insured [facility] [address] [place] [address] [phone] [id number] Abigail Stiles Self - patient is the insured Medical (General) History Medical History History ICD Code osteoarthritis Back,Hip,and Knee pain Cholesterol Cancer Gall bladder problems Numbness Reflux ( GERD) Sciatica Measles Mumps Chicken pox Joint implants/screws Transfusions Surgical History Surgery Date(Month/Year) gall bladder 10/1980 left hip replacement 05/2012 right mastectomy 04/2012
--- OUTSIDE RECORDS SUMMARY | 2025-04-15 08:21 | XMS_ITS | Clinical Summary ---
Author Organization [facility] Address [address] [place] [address] Phone Care Team Providers Care Fertilizer Applicator Name Role Phone Sejal Stern MD Primary Care Provider [phone] Allergies Active Allergy Reactions Criticality Noted Date [...] this topic Medical Devices Implanted Type Area Associate Financial Advisor Device Identifier Shelf Expiration Date Model / Serial / Lot Left Breast Reconstruction Left Hip Replacement Insurance MEDICARE PART A & B [employer] MEDICARE SUPPLEMENT MEDICARE PART A & B [employer] MEDICARE SUPPLEMENT MEDICARE PART A & B [facility] [employer] MEDICARE SUPPLEMENT MEDICARE PART A & B [facility] [employer] MEDICARE SUPPLEMENT MEDICARE PART A & B [facility] [employer] MEDICARE SUPPLEMENT MEDICARE PART A & B [employer] MED[employer]ARE SUPPLEMENT MEDICARE PART A & B Member Subscriber Plan / Payer (Ef fective 2009-Present) Name:GoAbigail Member ID:[id number] Relation to Subscriber:Self Name:Go Abigail Subscriber ID:[id number] Payer ID:[id number] Group ID:Not on file Type:Medicare Address: [employer] [address] [place] [id number] [facility] EXTENSION MEDICARE SUPPLEMENT MEDICARE PART A & B [employer] MEDICARE SUPPLEMENT MEDICARE PART A & B [employer] EXTENSION MEDICARE SUPPLEMENT [place] [phone] Advance Directives For more information, please contact: [phone] (9AM - 5PM [facility], Monday-Monday) * Full Code (Presumed) (Latest Code Status on File) Date Activated Date Inactivated Comments 12/18/2018 9:00 AM 12/19/2018 4:02 AM Care Teams Fertilizer Applicator Relationship Specialty Start Date End Date Sejal Stern MD [address] [place] [address] PCP - General Internal Medicine 11/01/18 Additional Source Comments The information contained in this document represents components of the legal health record. It is not the complete legal health record.[facility]
--- OUTSIDE RECORDS SUMMARY | 2025-04-15 08:21 | XMS_ITS | Patient Health Record ---
Author Organization [employer] [facility], d/b/a [facility] Address [address] [place] [address] Care Team Providers Care Rock Crusher Operator Name Role Phone Jaylen aNqvi Unavailable [phone] Allergies Allergen (clinical drug ingredient) Drug/Non Drug Allergy documented on EMR Reaction Allergy Type Onset Date Status ciprofloxacin Ciprofloxacin Unknown Drug Allergy Active Substance with 7-kglrwyq-2-methylgl utaryl-coenzyme A reductase inhibitor mechanism of action [...] Fahrenheit 04/26/2024 Respiratory Rate 19 /min 04/26/2024 Blood pressure diastolic 78 mm Hg 04/26/2024 Oximetry 97 % 04/26/2024 Height 67 in 04/26/2024 Blood pressure systolic 130 mm Hg 04/26/2024 Weight 185 lbs 04/26/2024 BMI 28.97 kg/m2 04/26/2024 Encounters Encounter Location Date Provider Diagnosis [facility] [address] [place] [address] 04/26/2024 Jaylen Naqvi Conjunctivitis due t o [...] End Date MEDICARE B [address] [place] [address] [id number] FIONA BOWDEN Self - patient is the insured 9 [employer] [address] [place] [address] [id number] FIONA BOWDEN Self - patient is the insured 9 Medical (General) History Medical History History ICD Code COPD Neuropathy
--- OUTSIDE RECORDS SUMMARY | 2025-04-15 08:22 | XMS_ITS | Encounter Summary ---
Author Organization [facility] Address [address] [place] [address] Phone Care Team Providers Care Stripping And Booking Machine Operator Name Role Phone Sejal Stern MD Primary Care Provider [phone] Encounter Details Date Type Department Care Team (Late st Contact Info) Description 12/18/2018 Procedure Pass OR Admitting Dept - Virtual Department [address] [place] [address] Social History Tobacco Use Types Packs/Day Years [...] on filedocumented in this encounter Care Teams Stripping And Booking Machine Operator Relationship Specialty Start Date End Date Sejal Stern MD [address] [place] [address] PCP - General Internal Medicine 11/01/18 documented as of this encounter Additional Source Comments The information contained in this document represents components of the legal health record. It is not the complete legal health record.[facility]
[2025-04-15 08:25] VITALS: BP 134/66; PULSE 69; BMI 29.6
--- NOTE | 2025-04-15 08:25 | A.OFFVIS_ITS ---
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 Operator Required: No Accompanied by: Self / Same As Patient Allergies ciprofloxacin (Cipro) Allergy (Unknown, Verified 04/15/25 08:29) Unknown pravastatin Allergy (Unknown, Verified 04/15/25 08:29) Unknown rosuvastatin (Crestor) Allergy (Unknown, Verified 04/15/25 08:29) leg cramps simvastatin Allergy (Unknown, Verified 04/15/25 08:29) Unknown Medication List - Last Reconciled 04/15/25 by Carlos Uribe MD albuterol sulfate 90 mcg/actuation (Ventolin HFA) 2 puffs inhalation Q6H PRN amlodipine 2.5 mg PO DAILY apixaban (Eliquis) 5 mg PO BID calcium carbonate-vitamin D3 600 mg-5 mcg (200 unit) (Calcium 600 + D(3)) 1 tab PO DAILY cholecalciferol (vitamin D3) 50 mcg PO DAILY ezetimibe 10 mg PO DAILY gabapentin 100 mg PO BEDTIME magnesium glycinate mg PO multivitamin 1 tab PO DAILY pantoprazole 40 mg PO DAILY umeclidinium-vilanterol 62.5-25 mcg/actuation (Anoro Ellipta) 1 ea inhalation DAILY HPI Comments Details: The patient is an 80-year-old female presenting with palpitations and shortness of breath. The palpitations began approximately a year and a half ago, typically occurring after consuming a heavy meal. These episodes have been sporadic, with another occurrence noted six months after the initial episode. The patient has been monitored for these episodes, which may be exacerbated by her GERD. The patient reports intermittent shortness of breath over the past two years, initially suspecting COPD as the cause. Further cardiac evaluation is planned to determine the underlying cause. The patient has arthritis, impacting her mobility, and is concerned about atrial fibrillation and stroke risk. She has been advised to start Eliquis to mitigate stroke risk. An echocardiogram and sleep study have been recommended to assess cardiac function and rule out sleep apnea. [facility] Medical History Hx of basal cell carcinoma Age-related osteoporosis without current pathological fracture Annual physical exam Radial scar of right breast Abnormal ultrasound of breast Breast density Vaginal wall prolapse Breast cancer, left Subclinical hypothyroidism Hip osteoarthritis Hypercholesterolemia Skin cancer, basal cell Peripheral neuropathy Osteopenia GERD (gastroesophageal reflux disease) Surgical History History of cataract surgery History of lumbar surgery History of left hip replacement History of tonsillectomy and adenoidectomy History of left mastectomy History of cholecystectomy Family History (Updated 04/15/25 @ 08:29 by Rivera Salvador CNA) Father CVD (cardiovascular disease) Mother Uterine cancer Brother In good health Daughter In good health Brother Cancer Pacemaker H/O heart bypass surgery Social History Housing: House Alcohol intake: current Comment: once a week 2 drinks Patient Tobacco Use Status: Former Tobacco user Tobacco use type: Cigarette Years Smoked: 37 years old e-Cigarette/Vaping Use: Never Used Second Hand Smoke Exposure: No service: No Current occupational status: retired Cognitive needs: No Hearing needs: No Vision needs: Yes Female Reproductive History Menstrual Age of Menarche: 11 Review of Systems Const Denies daytime sleepiness, Denies difficulty sleeping, Denies snoring, Denies stops breathing during sleep and Denies weakness Card Denies chest pain, Denies rapid heart rate, Denies irregular heart rhythm, Denies claudication, Denies leg edema, Denies lightheadedness, Denies palpitations, Denies dyspnea, Denies dyspnea on exertion, Denies orthopnea, Denies paroxysmal nocturnal dyspnea and Denies slow heart rate Resp Denies cough, Denies dyspnea, Denies dyspnea on exertion and Denies snoring GI Reports no additional complaints, Denies hematochezia, Denies change in stool character and Denies dyspepsia Musc Denies abnormal gait, Denies muscle weakness and Denies numbness Neuro Denies abnormal gait, Denies numbness and Denies weakness Endo Denies palpitations Physical Exam Vital Signs: Last Vital Signs Pulse 69 04/15/25 08:25 BP 134/66 04/15/25 08:25 BMI result Body Mass Index 29.6 Const General: comfortable and no acute distress Orientation/consciousness: patient oriented x3 HEENT Other: Unremarkable Head: Yes normal to inspection Neck Neck: Yes normal visual inspection Chest Chest palpation & inspection: normal inspection of the chest Resp Auscultation: clear to auscultation bilaterally Cardio Palpation: normal PMI Heart sounds: S1 normal heart sound present, S2 normal heart sound present, no gallops, no murmurs and no rubs GI Palpation (GI): Soft to palpation Back/Spine/Pelvis Other: unremarkable Skin General skin exam: no rashes or lesions noted Neuro General: patient oriented x3 Extrem General: Yes normal to inspection Psych Mental Status: mental status grossly normal Office Procedures EKG Details: EKG with underlying sinus rhythm at 69/Min; no ischemic changes; [place] [address]-Sejiciiljrpoobzhx, Complete Assessment & Plan Assessment & Plan (1) PAF (paroxysmal atrial fibrillation): Code(s): I48.0 - Paroxysmal atrial fibrillation Category: Medical (2) PVC (premature ventricular contraction): Code(s): I49.3 - Ventricular premature depolarization Category: Medical (3) Hypertension: Code(s): I10 - Essential (primary) hypertension Category: Medical Qualifiers: Hypertension type: essential hypertension Qualified Code(s): I10 - Essential (primary) hypertension Plan In the recent Holter monitor, underlying rhythm is sinus with an average rate of 70/Min. Intermittent atrial fibrillation noted with a total burden of 3.5%. Longest episode around 28 minutes. PVCs noted with a burden of 1.8%. Essentially, she has got paroxysmal atrial fibrillation with intermittent palpitations. We went over this in detail. Start metoprolol. We can hold off on the amlodipine to avoid any hypotension. She can start the Eliquis that has been prescribed. Echocardiogram is pending to assess cardiac function and left atrial size. She denies any history of sleep apnea but there is an order for sleep study from PCP and requested her to complete that as well. We can see her back in 3 months or so. She will let us know how she feels on the medication changes. Discussion Notes During the visit, we discussed the patient's palpitations from atrial fibrillation and advising the initiation of Eliquis to prevent stroke. We also addressed her shortness of breath, planning further cardiac evaluation with an echocardiogram. Recommendation was made for a sleep study to rule out sleep apnea. Patient was informed and verbally consented to the use of an ambient scribe for clinic note documentation during this visit. Medications: New metoprolol succinate ER (Toprol XL) 50 mg PO DAILY 90 tabs 1RF Discontinued amlodipine Discontinued Reason: Doctor's Order 2.5 mg PO DAILY 90 tabs 2RF I10 - Essential (primary) hypertension Patient Instructions: - Start taking Eliquis as prescribed to reduce stroke risk. - Stop taking amlodipine and start the new medication as directed. - Schedule and complete the echocardiogram and sleep study. - Maintain physical activity within comfort levels due to arthritis. - Limit alcohol consumption to prevent exacerbation of symptoms. Coding Level of Care Code New Pt Level 4 (16066) Complex EM visit Add On G2211 Diagnoses PAF (paroxysmal atrial fibrillation) I48.0 PVC (premature ventricular contraction) I49.3 Essential hypertension I10 Hypertension type: essential hypertension CPT Codes EKG - CPT: 44077-Hdxqugutigzwoxmrw, Complete ([id number])
== END 2025-04-15 08:52 | disposition home or self-care (01) ==
LOC: HO.HCS 08:15
PROVIDERS: PCP Internal Medicine; Visit Provider Internal Medicine
DX: I48.0 Paroxysmal atrial fibrillation (principal); I49.3 Ventricular premature depolarization; I10 Essential (primary) hypertension
CPT/HCPCS: 93010; 99204; G2211

== ENCOUNTER → 2025-04-15 08:13 | Outpatient (BNVA) | payer MEDICARE, OTHER, SELFPAY | PROVIDERS: PCP Internal Medicine; Visit Provider Internal Medicine | DX: I48.0 Paroxysmal atrial fibrillation (principal); I49.3 Ventricular premature depolarization; I10 Essential (primary) hypertension | CPT/HCPCS: 93005; 99202 ==

== ENCOUNTER 2025-05-20 12:34 | Outpatient (REF) | payer MEDICARE, OTHER, SELFPAY ==
--- NOTE | ~2025-05-20 | CT_ITS ---
EXAMINATION: CT CHEST WITHOUT IV CONTRAST INDICATION: R91.8 - Other nonspecific abnormal finding of lung field COMPARISON: Comparison is made with the prior examination dated 05/17/2024. TECHNIQUE: Helical CT scan of the chest was performed without intravenous contrast. Coronal and sagittal reformatted images were generated and reviewed. This CT exam was performed with one or more of the following dose reduction techniques: automated exposure control, adjustment of the mA and/or kV according to patient size, use of iterative reconstruction technique. DLP: 151 mGy-cm CHEST: THYROID: The thyroid is unremarkable. LUNGS: Again seen is a triangular nodular density along the right minor fissure (series 5, image 82) consistent with an intrapulmonary lymph node. A triangular subpleural opacities in the medial aspect of the left lung apex is also unchanged and may represent scarring. No new pulmonary nodules are identified. MEDIASTINUM: There is no mediastinal lymphadenopathy. GEORGE: Evaluation of the hilar regions is limited by lack of intravenous contrast material. CARDIOVASCULATURE: The heart is normal in size. There is no pericardial effusion. The thoracic aorta is normal in caliber. DEGREE OF CORONARY CALCIFICATION: mild PLEURA: There is no pleural effusion. No pneumothorax. MAIN AIRWAYS: The mainstem bronchi and proximal branches are patent. AXILLA: There is no axillary lymphadenopathy. BONES AND SOFT TISSUES: The patient is status post left mastectomy with implant reconstruction. There is degenerative disc disease of the spine. UPPER ABDOMEN: The visualized portions of the liver, spleen, and adrenals have an unremarkable unenhanced appearance. CT/CT chest wo IV con IMPRESSION: No acute abnormality. No suspicious pulmonary nodules are identified. Electronically signed by: Lennox Hernandez MD 05/20/2025 01:26 PM [facility]
--- OUTSIDE RECORDS SUMMARY | 2025-05-20 16:06 | XMS_ITS | Patient Health Record ---
Author Organization [facility] Address [address] [place] [address] Care Team Providers Care Rock Contractor Name Role Phone Sejal Stern Primary Care Provider Margie Collado Unavailable [phone] Allergies Allergen (clinical drug ingredient) Drug/Non Drug [...] Status W/U Status Risk Notes Problem Neuropathy (270295338) Neuropathy (G62.9) Active confirmed Plan Of Treatment No Information Insurance Providers Payer Name Payer Address Payer Phone Subscriber Number Group Number Insured Name Patient Relationship to Insured Coverage Start Date Coverage End Date Medicare National Govt Sv[employer] Inc [address] [place] [phone] [id number] Abigail Stiles Self - patient is the insured [facility] [address] [place] [address] [phone] [id number] Abigail Stiles Self - patient is the insured Medical (General) History Medical History History ICD Code osteoarthritis Back,Hip,and Knee pain Cholesterol Cancer Gall bladder problems Numbness Reflux ( GERD) Sciatica Measles Mumps Chicken pox Joint implants/screws Transfusions Surgical History Surgery Date(Month/Year) gall bladder 10/1980 left hip replacement 05/2012 right mastectomy 04/2012
--- OUTSIDE RECORDS SUMMARY | 2025-05-20 16:07 | XMS_ITS | Clinical Summary ---
Author Organization [facility] Address [address] [place] [address] Phone Care Team Providers Care Extractor Tender Raw Stock Name Role Phone Sejal Stern MD Primary Care Provider [phone] Allergies Active Allergy Reactions Criticality Noted Date [...] Date Smoking Tobacco: Former Cigarettes 1 1 1977 Smokeless Tobacco: Never Alcohol Use Standard [...] this topic Medical Devices Implanted Type Area Heavy Equipment Rental Manager Device Identifier Shelf Expiration Date Model / Serial / Lot Left Breast Reconstruction Left Hip Replacement Insurance MEDICARE PART A & B [employer] MEDICARE SUPPLEMENT MEDICARE PART A & B [employer] MEDICARE SUPPLEMENT MEDICARE PART A & B [facility] EXTENSION MEDICARE SUPPLEMENT MEDICARE PART A & B [facility] EXTENSION MEDICARE SUPPLEMENT MEDICARE PART A & B [facility] EX[employer]ION MEDICARE SUPPLEMENT MEDICARE PART A & B [employer] MEDICARE SUPPLEMENT MEDICARE PART A & B Member Subscriber Plan / Payer (Ef fective 2009-Present) Name:GoAbigail Member ID:[id number] Relation to Subscriber:Self Name:Go Abigail Subscriber ID:[id number] Payer ID:[id number] Group ID:Not on file Type:Medicare Address: [employer] [address] [place] [id number] [facility] EXTENSION MEDICARE SUPPLEMENT MEDICARE PART A & B [employer] MEDICARE SUPPLEMENT MEDICARE PART A & B [employer] MEDICARE SUPPLEMENT [place] [id number] Advance Directives For more information, please contact: [phone] (9AM - 5PM Rayna/[facility], Monday-Monday) * Full Code (Presumed) (Latest Code Status on File) Date Activated Date Inactivated Comments 12/18/2018 9:00 AM 12/19/2018 4:02 AM Care Teams Extractor Tender Raw Stock Relationship Specialty Start Date End Date Sejal Stern MD [address] [place] [address] PCP - General Internal Medicine 11/01/18 Additional Source Comments The information contained in this document represents components of the legal health record. It is not the complete legal health record.[facility]
--- OUTSIDE RECORDS SUMMARY | 2025-05-20 16:07 | XMS_ITS | Patient Health Record ---
Author Organization [facility] Address [address] [place] [address] Care Team Providers Care Glue Jointer Operator Name Role Phone Po Sejal KU Primary Care Provider Lennox Chauhan [phone] Reason For Referral No Information Medications Medication SIG (Take, Route, Frequency, Duration) Notes Start Date End Date Status Tylenol Arthritis Pain Active Omeprazole 20 MG Capsule Delayed Release 1 capsule Orally as needed Active Magnesium Active Aspirin 81mg Active Colyte with Flavor Packs 240 GM Solution Reconstituted as directed Orally as directed; Duration: 1 dose 04/30/2013 Active Multivitamins Active CeleBREX Active Calcium Active Vitamin B Complex Ac tive Social History Social History Additional Details Category Social Info Options Details Miscellaneous: Marital status: Occupation: Retired teacher Section Notes: Former smoker, and has occ. wine Former smoker, and has occ. wine Problems Problem Type SNOMED Code ICD Code Onset Dates Problem Status W/U Status Risk Notes Problem Esophageal reflux (818824045) Esophageal reflux (530.81) Active confirmed Problem Heartburn (62356609) Heartburn (787.1) Active confirmed Problem Screening for malignant neoplasm of colon (395649444) Screen for colon cancer (V76.51) Active confirmed Plan Of Treatment Future Test Test Name Order Date COLONOSCOPY 04/30/2013 Insurance Providers Payer Name Payer Address Payer Phone Subscriber Number Group Number Insured Name Patient Relationship to Insured Coverage Start Date Coverage End Date MEDICARE OF [place] [address] [place] [address] [id number] FIONA BOWDEN Self - patient is the insured [facility] [employer] [address] [place] [address] [id number] FIONA BOWDEN Self - patient is the insured Medical (General) History Medical History History ICD Code GERD-EGD in 07/20118220-Xoq-jthlf HH-no [place] tt's Breast cancer-as below Denies ME,DM,CVA,Lung disease,renal dise ase Neg colonoscopy in 09/[address] Herndon Surgical History Surgery Date(Month/Year) Left radical mastectomy for cancer in ea rly 1989' Lower back surgery [facility] Left hip replacement 05/2012
--- OUTSIDE RECORDS SUMMARY | 2025-05-20 16:07 | XMS_ITS | Data Portability ---
Author Organization [place] - [facility], [facility] Address [address] [place] [address] Care Team Providers Care Procedures Analyst Name Role Phone LYDIA JAMESNURY Primary Care [...] 321 4V right shoulder pain 2024 025 [id number] [facility], [address], [place], [address], 5 08:48:28 Medication Orders None recorded. Patient TargetsNo targets recorded. Patient InstructionsNo instructions recorded. Reason for Referral None Reported. Results Created Date Observation Date Name Description Value Unit Range Abnormal Flag Note LastModifiedBy Organization Detail LastModifiedTime 11/01/1910/31/2024 XR, shoul carlos, 2 or more view http:/ [email or web address] ?Encry pted=s hAaTro YD8dLq bEUv6g %2BXZw aYqtaq 0bqfl% 2Fg9IQ a4ajBk vP9nXo QUaueC m3YtLR FvZlgJ JJ8mAn HZtai3 1v0270 AC0Kla nqBWKW hKiQtr MwF INTERFACE [facility] Office [address], [place], [address], 10/31/2024 10:22:52 11/01/19 25 10/31/2024 XR, shoul carlos, 2 or more view http:/ [email or web address] ?Encry pted=s hAaTro YD8dLq bEUv6g %2BXZw aYqtaq 0bqfl% 2Fg9IQ a4ajBk vP9nXo QUaueC m3YtLR FvZlgJ JJ8mAn HZtai3 3r8437 AC0Kla nqBWKW hKiQtr MwF INTERFACE [facility] [address], [place], [address], 10/31/2024 10:22:54 Result Notes Documentation Provider Name and Address Organization Details Recorded Time Xr, Shoulder, 2 Or More View : [email or web address]? Encrypted=dhYtMksRB1xTaxO Uv6g%5QMGyfMoaiq7xrub%2Fg 6UHk3mtRwjY9pIrPRrmkXx5Oj NWHlXewEEC9lUkOCjuj57z624 0VT4WfblwZJDWvBnRavNrO Not Available [facility] 10/31/2024 10:22: 53 Xr, Shoulder, 2 Or More View : [email or web address] Encrypted=xmRcXpxPT8qDltT Uv6g%3JTVpfQfanq2mtyi%2Fg 9LVk8aoLeaU5rDkTRabqPu6Oc IKXlJpxBDX6nLvFIwpr49d466 0FJ7IxfofRFADqOhOuoPuI Not Available [facility] 10/31/2024 10:22: 54 Problems Name Problem SNOMED Code Status Onset Date Resolution Date Notes Provider Name and Address Organization Details Recorded Time No complaints 026474181 Active Status : 'I'; Not Available [employer] 4 09:15:43 Osteoarthr itis of left hip joint 7216904023230 08 Active 2024 Walter Vallejo PA-C [address], [place], [address] , [facility] 5 07:46:20 Osteoarthr itis of right hip joint 3013226553893 07 Active 2024 Walter Vallejo PA-C [address], [place], [address] , [facility] 5 07:46:20 Chronic pain of right upper limb 9384780641694 9108 Active [facility] 5 09:59:21 Problem Notes None recorded. Procedures Surgical History Date Name Laterality Status Provider Name and Address Organization Details Recorded Time 5 Euflexxa Knee Injection completed Stefano Jacobs PA-C [address], [place], [address], [facility] 01/15/2025 08:06:14 5 Euflexxa Knee Injection completed Stefano Jacobs PA-C [address], [place], [address], [facility] 01/09/2025 10:16:14 5 Euflexxa Knee Injection completed Stefano Jacobs PA-C [address], [place], [address], [facility] 12/30/2024 07:50:14 5 Sports Shoulder 4&1 completed Stefano Jacobs PA-C [address], [place], [address], [facility] 10/31/2024 12:40:28 5 JZHip completed Walter Vallejo PA-C [address], [place], [address], [facility] 08/12/2024 08:19:37 Imaging Results None recorded. Procedure Notes None recorded. Medical Equipment None Reported. Allergies Allergen ID Allergen Name Allergen Category Reaction Reaction Severity Criticality Documentation Date Start Date Code Code System Note Provider Name and Address Organization Details Recorded Time 82125 Product containin g 3-hydroxy -3-methyl glutaryl- coenzyme A reductase inhibitor (product) medicatio n Not available Not available Not available 08/28/20232017 83454 009 SNOMED Aller gyNam e: 'Stat ins'; [...] Updated DateTime 08/12/2024 172.72 cm 27.4 kg/m2 84311.63 g Tomi Davidson [facility] 08/12/2024 08:12:12 Date Recorded Body height Provider Name an d Address Organization Details Last Updated DateTime 10/31/2024 172.72 cm CARLITOS WORKMAN [facility] 10/31/2024 09:56:50 Date Recorded Body height Provider Name an d Address Organization Details Last Updated DateTime 01/15/2025 172.72 cm KELLEY JETER [facility] 01/15/2025 14:02:32 Social History None recorded. Functional Status None recorded. Mental Status None recorded. Family History Nothing Reported. Medical History No medical history recorded. Gynecological HistoryNo gynecological history recorded. Obstetrics History GPAL:G 0 P 0 0 0 0 Past Encounters Encounter ID Performer Location Encounter Start Date Encounter Closed Date Diagnosis/Indication Diagnosis SNOMED-CT Code Diagnosis ICD10 Code Diagnosis IMO Codes Diagnosis Note [id number] MAKAYLA Myers [address] [place] [address] 08/12/2024 08:05:55 08/28/2024 15:35:12 Osteoarthritis of right hip joint 5574790362 57627 M16.11 [id number] MAKAYLA Carranza [address] [place] [address] 10/31/2024 09:45:29 11/07/2024 08:48:28 Chronic pain of right upper limb 0484758255 6689747 M25.511 G89.29 815536 [id number] [place] [address] 12/30/2024 10:44:30 01/09/2025 15:13:43 Osteoarthritis of right knee joint 6832514871 87988 M17.11 1452930 Osteoarthr itis of left knee joint 3449268212 53589 M17.12 [id number] MAKAYLA Carranza [address] [place] [address] 01/06/2025 14:37:04 01/14/2025 14:11:08 Osteoarthritis of right knee joint 0912050716 17978 M17.11 1709813 Osteoarthr itis of left knee joint 1443937173 72064 M17.12 7599363 [id number] MAKAYLA Carranza [address] [place] [address] 01/15/2025 13:44:39 01/22/2025 08:26:16 Osteoarthritis of left knee joint 5723992520 29346 M17.12 4640765 Osteoarthr itis of right knee joint 1174295427 66144 M17.11 6979790 Health Concerns Section Related Observation LastModified by Organization Detai ls LastModified Time None Recorded Concern Status LastModified by Organization Details LastModified Time None Recorded Advance Directives Directive None Recorded Payers Insurance Date Sequence Insurance Name Policy Number Policy Cortez Covered Member ID Cortez Member ID Guarantor Name 01/22/2025 2 [facility] INDEMNITY PLAN (INDEMNITY) [id number] Abigail Stiles [id number] Abigail Stiles 01/15/2025 1 MEDICARE [place] [facility] [employer] Abigail Stiles [id number] Abigail Stiles Notes Date Note Type [...] not need to pursue anything of this magnitude.[facility] speech recognition bench molder apprentice software was used to create portions of this document. An attempt at proofreading has been made to minimize errors. Please call for corrections. Stefano Jacobs PA-C [address] [place] [address], [place], [address], [facility] 10/31/2024 12:40:50 12/30/2024 text/html I am seeing [...] follow up injection. Stefano Jacobs PA-C [address], [place], [address], [facility] 12/30/2024 11:41:14 01/06/2025 text/html I am seeing [...] follow up injection. Stefano Jacobs PA-C [address], [place], [address], [facility] 01/09/2025 10:16:31 01/15/2025 text/html I am seeing [...] follow up injection. Stefano Jacobs PA-C [address], [place], [address], [facility] 01/16/2025 11:21:49 OBGyn Episode No OBEpisode recorded.
--- OUTSIDE RECORDS SUMMARY | 2025-05-20 16:07 | XMS_ITS | Encounter Summary ---
Author Organization [facility] Address [address] [place] [address] Phone Care Team Providers Care Cabinet Finisher Name Role Phone Sejal Stern MD Primary Care Provider [phone] Encounter Details Date Type Department Care Team (Late st Contact Info) Description 12/18/2018 Procedure Pass OR Admitting Dept - Virtual Department [address] [place] [address] Social History Tobacco Use Types Packs/Day Years [...] on filedocumented in this encounter Care Teams Cabinet Finisher Relationship Specialty Start Date End Date Sejal Stern MD [address] [place] [address] PCP - General Internal Medicine 11/01/18 documented as of this encounter Additional Source Comments The information contained in this document represents components of the legal health record. It is not the complete legal health record.[facility]
--- OUTSIDE RECORDS SUMMARY | 2025-05-20 16:07 | XMS_ITS | Patient Health Record ---
Author Organization [employer] [facility], d/b/a [facility] Address [address] [place] [address] Support Name Relationship Address Phone [facility] [address] [facility] , [phone] FIONA BOWDEN Guarantor Unknown [phone] Allergies Allergen (clinical drug ingredient) Drug/Non Drug Allergy documented on EMR Reaction Allergy Type Onset Date Status ciprofloxacin Ciprofloxacin Unknown Drug Allergy Active Substance with 7-bgfgrys-1-methylgl utaryl-coenzyme A reductase inhibitor mechanism of action [...] Active CeleBREX Active Zetia Active Gabapentin Active Plan Of Treatment No Information Insurance Providers Payer Name Payer Address Payer Phone Subscriber Number Group Number Insured Name Patient Relationship to Insured Coverage Start Date Coverage End Date MEDICARE B [address] [employer] [address] [facility] [place] [address] [id number] FIONA BOWDEN Self - patient is the insured 9 [employer] [address] [place] [address] [id number] FIONA BOWDEN Self - patient is the insured 9 Medical (General) History Medical History History ICD Code COPD Neuropathy
== END 2025-05-20 12:35 | disposition home or self-care (01) ==
LOC: HO.CT 12:34
PROVIDERS: PCP Internal Medicine; Visit Provider Internal Medicine Pulmonary Disease
DX: R91.8 Other nonspecific abnormal finding of lung field (principal)
CPT/HCPCS: 71250

== ENCOUNTER → 2025-05-20 12:36 | Outpatient (BNV) | payer MEDICARE, OTHER, SELFPAY | PROVIDERS: PCP Internal Medicine; Visit Provider Radiology Diagnostic Radiology | DX: R91.8 Other nonspecific abnormal finding of lung field (principal) | CPT/HCPCS: 71250 ==

== ENCOUNTER → 2025-05-28 09:26 | Outpatient (REF) | payer MEDICARE, OTHER, SELFPAY ==
--- NOTE | 2025-05-28 09:30 | CA_ITS ---
Transthoracic Echocardiogram Patient (Last, First, Middle): Abigail Stiles D Gender: F Date of : 1945 Age: 80 Procedure Date: 05/28/2025 Procedure Type: Transthoracic Echocardiogram Location: OP Height: 170.18 cm Weight: 85.28 kg BSA: 1.97 m2 Heart Rate: bpm BP: 134 / 66 mmHg [employer]visor [employer]: SHWETA Referring MD: Sejal Stern MD Symptoms: I48.91 - Unspecified atrial fibrillation Study Quality: Fair, contrast ECG Rhythm: Sinus Conclusions: - The left ventricular systolic function is normal. The calculated ejection fraction is 68% by biplane method. - No obvious valvular pathology seen on this study. Findings Procedure Information Contrast agent, definity, is being given per protocol without apparent complications. Left Ventricle Normal left ventricular cavity size. There is normal left ventricular wall thickness. The left ventricular systolic function is normal. The calculated ejection fraction is 68% by biplane method. There is no evidence of regional wall motion abnormalities. Diastolic function is normal for age. Right Ventricle Normal right ventricular cavity size and systolic function. Atria Both atria are normal in size. Aortic Valve There is a normal trileaflet aortic valve. There is no aortic valve stenosis. There is no aortic valve regurgitation. Mitral Valve The mitral valve appears normal. There is no mitral valve regurgitation. There is no mitral valve stenosis. Pulmonic Valve The pulmonic valve is likely normal. Tricuspid Valve There is trace tricuspid valve regurgitation. There is no evidence of pulmonary hypertension. Great Vessels The asc aorta is normal in size. Venous The inferior vena cava is mildly dilated and collapses greater than 50% with inspiration. Pericardium/Pleural There is no evidence of pericardial effusion. Prior Study Comparison No prior study available for comparison. Recommendations, Care & Conclusions No obvious valvular pathology seen on this study. Measurements 2D Linear Measurements IVSd: 0.85 0.6-0.9/0.6-1.0 cm LVIDd: 5.18 3.9-5.3/4.2-5.9 cm LVIDd Index: 2.63 2.4-3.2/2.2-3.1 cm/m2 LVIDs: 3.53 2.0-3.6 cm LVPWd: 0.95 0.7-1.1 cm LA Diam: 3.60 2.7-3.8/3.0-4.0 cm LAIDs Index: 1.83 1.5-2.3 cm/m2 LV Mass: 208.66 67-162/88-224 g LV Mass Index: 105.92 43-95/49-115 g/m2 LVOT Diam: 2.00 3.0+(-)1.3 cm 2D Systolic Function EF 4C: 68.60 >55% EF 2C: 69.40 >55% EF BiP: 68.10 >55% Mitral Valve MV Pk E: 0.94 MV PK A: 0.99 MV Decel Time: 200.00 E/A: 0.90 E'Lateral: 6.85 E'Medial: 7.51 E/E' Med: 12.60 E/E' Lat: 13.80 PHT: 59.00 MVA PHT: 3.73 Decel Mower: 4.72 Aortic Valve AoV Pk Maynor: 1.43 AoV Mn Maynor: 1.03 AoV VTI: 0.39 AoV Pk Grad: 8.00 Aov Mn Grad: 5.00 ALPA Cont.VTI: 2.55 LVOT LVOT Pk Maynor: 1.17 LVOT Mn Maynor: 0.77 LVOT VTI: 0.31 LVOT Pk Grad: 5.00 LVOT Mn Grad: 3.00 LVOT Diam: 2.00 LVOT Area: 3.14 Diastolic Function MV Pk E: 0.94 MV Pk A: 0.99 E/A: 0.90 E'Medial: 7.51 E/E' Med: 12.60 E' Laterial: 6.85 E/E' Lat: 13.80 Right Ventricle TAPSE (mm): 22.80 TVS' Maynor: 10.10 Tricuspid Valve TR Pk Maynor: 2.38 TR Pk Grad: 23.00 RA Press: 8.00 RVSP: 31.00 Great Vessels Aorta Sinus of Valsalva: 3.41 2.0-3.[address] Ridge: 2.57 1.7-3.4 cm Ao Asc: 3.50 2.1-3.4 cm Updated in Other Vendor System with Status of Final Carlos Uribe MD electronically signed on 05/30/2025 1:36:15 PM with status of Final
--- OUTSIDE RECORDS SUMMARY | 2025-05-28 10:16 | XMS_ITS | Clinical Summary ---
Author Organization [facility] Address [address] [place] [address] Phone Care Team Providers Care Watch Repair Technician Name Role Phone Sejal Stern MD Primary Care Provider [phone] Allergies Active Allergy Reactions Criticality Noted Date [...] this topic Medical Devices Implanted Type Area Contact Center Manager Device Identifier Shelf Expiration Date Model / Serial / Lot Left Breast Reconstruction Left Hip Replacement Insurance MEDICARE PART A & B [employer] MEDICARE SUPPLEMENT MEDICARE PART A & B [employer] MEDICARE SUPPLEMENT MEDICARE PART A & B [facility] [employer] MEDICARE SUPPLEMENT MEDICARE PART A & B [facility] [employer] MEDICARE SUPPLEMENT MEDICARE PART A & B [facility] [employer] MEDICARE SUPPLEMENT MEDICARE PART A & B [employer] MEDICARE SUPPLEMENT MEDICARE PART A & B Member Subscriber Plan / Payer (Ef fective 2009-Present) Name:GoAbigail Member ID:[id number] Relation to Subscriber:Self Name:Go Abigail Subscriber ID:[id number] Payer ID:[id number] Group ID:Not on file Type:Medicare Address: [employer] [address] [place] [id number] [facility] EXTENSION MEDICARE SUPPLEMENT MEDICARE PART A & B [employer] MEDICARE SUPPLEMENT MEDICARE PART A & B [employer] MEDICARE SUPPLEMENT L[place] LE[place] [id number] Advance Directives For more information, please contact: [phone] (9AM - 5PM Rayna/[facility], Monday-Monday) * Full Code (Presumed) (Latest Code Status on File) Date Activated Date Inactivated Comments 12/18/2018 9:00 AM 12/19/2018 4:02 AM Care Teams Watch Repair Technician Relationship Specialty Start Date End Date Sejal Stern MD [address] [place] [address] PCP - General Internal Medicine 11/01/18 Additional Source Comments The information contained in this document represents components of the legal health record. It is not the complete legal health record.[facility]
--- OUTSIDE RECORDS SUMMARY | 2025-05-28 10:16 | XMS_ITS | Encounter Summary ---
Author Organization [facility] Address [address] [place] [address] Phone Care Team Providers Care Wing Scorer Name Role Phone Sejal Stern MD Primary Care Provider [phone] Encounter Details Date Type Department Care Team (Late st Contact Info) Description 12/18/2018 Procedure Pass OR Admitting Dept - Virtual Department [address] [place] [address] Social History Tobacco Use Types Packs/Day Years [...] on filedocumented in this encounter Care Teams Wing Scorer Relationship Specialty Start Date End Date Sejal Stern MD [address] [place] [address] PCP - General Internal Medicine 11/01/18 documented as of this encounter Additional Source Comments The information contained in this document represents components of the legal health record. It is not the complete legal health record.[facility]
--- OUTSIDE RECORDS SUMMARY | 2025-05-28 10:16 | XMS_ITS | Data Portability ---
Author Organization [place] [facility], [facility] Address [address] [place] [address] Care Team Providers Care Marketing Communications Specialist Name Role Phone LYDIA CHARLILORA Primary Care Provider Assessment Encounter Date Assessment Date Assessment LastModified by Organization Details LastModified Time 08/12/2024 08/12/2024 I am seeing the patient today under the supervision of Dr Tan who was available but who did not see the patient. [email or web address] Not available 08/12/2024 07:46:19 Plan of Treatment Reminders Order Date Submit Date Provider Last Modified By Organization Details Last Modified Time Details Appointments NEW PATIENT 15 2025 09:30A M Darron Zhang PA-C Not available Not available Not available RECHECK 15 2025 08:45A M Stefano Jacobs PA-C Not available Not available Not available Lab None recorded. Referral None recorded. Procedures None recorded. Surgeries None recorded. Imaging XR, shoulder, 2 or more view - rm 321 4V right shoulder pain 2024 025 [email or web address] [facility], [address], [facility] [address], [place], [address], 11/07/2024 08:48:28 Medication Orders None recorded. Patient TargetsNo targets recorded. Patient InstructionsNo instructions recorded. Reason for Referral None Reported. Results Created Date Observation Date Name Description Value Unit Range Abnormal Flag Note LastModifiedBy Organization Detail LastModifiedTime 11/01/1910/31/2024 XR, shoul carlos, 2 or more view http:/ [email or web address] ?Encry pted=s hAaTro YD8dLq bEUv6g %2BXZw aYqtaq 0bqfl% 2Fg9IQ a4ajBk vP9nXo QUaueC m3YtLR FvZlgJ JJ8mAn HZtai3 3k9468 AC0Kla nqBWKW hKiQtr MwF INTERFACE [facility] [address], [address], 10/31/2024 10:22:52 11/01/19 25 10/31/2024 XR, shoul carlos, 2 or more view http:/ [email or web address] ?Encry pted=pretty [place] YD8dLq bEUv6g %2BXZw aYqtaq 0bqfl% 2Fg9IQ a4ajBk vP9nXo QUaueC m3YtLR FvZlgJ JJ8mAn HZtai3 7j6907 AC0Kla nqBWKW hKiQtr MwF INTERFACE [address], [address], 10/31/2024 10:22:54 Result Notes Documentation Provider Name and Address Organization Details Recorded Time Xr, Shoulder, 2 Or More View : [email or web address] Encrypted=yxAsIfnZS0jTsmZ Uv6g%2XRVkxZmolq8gkcr%2Fg 8DMy0txNfpL0eRnMElpzSf3Ur QTOjOjeRCC5vRnYGbgt73q929 5QJ5KowsjGNUAkRwQepIqX Not Available [facility] 10/31/2024 10:22: 53 Xr, Shoulder, 2 Or More View : [email or web address] Encrypted=pvFvNjiXV7qEtjZ Uv6g%1KWZydOhspd8iiat%2Fg 0BXs9mhOvwI2dPaAIkdyWf2Uk NGKlVqaXVM1oAfJFtii14f077 3XJ5FywboYMKMbFtQmgBgH Not Available [facility] 10/31/2024 10:22: 54 Problems Name Problem SNOMED Code Status Onset Date Resolution Date Notes Provider Name and Address Organization Details Recorded Time No complaints 439934446 Active Status : 'I'; Not Available [facility] 4 09:15:43 Osteoarthr itis of left hip joint 3761210248541 08 Active 2024 Walter Vallejo PA-C [address], [place], [address] , [facility] 5 07:46:20 Osteoarthr itis of right hip joint 1235176585664 07 Active 2024 Walter Vallejo PA-C [address], [place], [address] , [facility] 5 07:46:20 Chronic pain of right upper limb 8393249299371 9108 Active 2024 [facility] 5 09:59:21 Problem Notes None recorded. Procedures Surgical History Date Name Laterality Status Provider Name and Address Organization Details Recorded Time 5 Euflexxa Knee Injection completed Stefano Jacobs PA-C [address], [place], [address], [facility] 01/15/2025 08:06:14 5 Euflexxa Knee Injection completed Stefano Jacobs PA-C [address], [place], [address], [facility] 01/09/2025 10:16:14 5 Euflexxa Knee Injection completed Stefano Jacobs PA-C [address], [place], [address], [facility] 12/30/2024 07:50:14 5 Sports Shoulder 4&1 completed Stefano Jacobs PA-C [address], [place], [address], [facility] 10/31/2024 12:40:28 5 JZHip completed Walter Vallejo PA-C [address] [facility] [address], [place], [address], [place] [facility] 08/12/2024 08:19:37 Imaging Results None recorded. Procedure Notes None recorded. Medical Equipment None Reported. Allergies Allergen ID Allergen Name Allergen Category Reaction Reaction Severity Criticality Documentation Date Start Date Code Code System Note Provider Name and Address Organization Details Recorded Time 361622 piroxicam medicatio n Not available Not available unabletoasse ss 05/26/2025 8356 RxNorm Not Available giovani - External Data Service - prod 5 10:25:47 905597 Shellfish (substanc e) food,medi cation Not available Not available Not available 05/26/20252018 76868 9006 SNOMED unrec ogniz ed react ion (text : GI Upset , code: 93446 005) (from exter nal sourc e) Not Available giovani - External Data Service - prod 5 10:25:48 87424 Product containin g 3-hydroxy -3-methyl glutaryl- coenzyme A reductase inhibitor (product) medicatio n Not available Not available Not available 08/28/20232017 12364 009 SNOMED Aller gyNam e: 'Stat ins'; Not Available [facility] 4 12:57:37 Medications Name Sig Start Date Stop [...] Updated DateTime 08/12/2024 172.72 cm 27.4 kg/m2 06480.63 g Tomi [facility] 08/12/2024 08:12:12 Date Recorded Body height Provider Name an d Address Organization Details Last Updated DateTime 10/31/2024 172.72 cm CARLITOS WORKMAN [facility] 10/31/2024 09:56:50 Date Recorded Body height Provider Name an d Address Organization Details Last Updated DateTime 01/15/2025 172.72 cm KELLEY JETER [facility] 01/15/2025 14:02:32 Social History None [...] ICD10 Code Diagnosis IMO Codes Diagnosis Note [id number] MAKAYLA Myers - [place] [address] [place] [address] 08/12/2024 08:05:55 08/28/2024 15:35:12 Osteoarthritis of right hip joint 2390122695 02636 M16.11 [id number] MAKAYLA Carranza - [place] [address] [place] [address] 10/31/2024 09:45:29 11/07/2024 08:48:28 Chronic pain of right upper limb 7821643671 1175164 M25.511 G89.29 444311 [id number] MAKAYLA Carranza [facility] [address] [place] [address] 12/30/2024 10:44:30 01/09/2025 15:13:43 Osteoarthritis of right knee joint 7450948840 80642 M17.11 2082308 Osteoarthr itis of left knee joint 5760896564 74576 M17.12 [id number] [id number] MAKAYLA Carranza [address] [place] [address] 01/06/2025 14:37:04 01/14/2025 14:11:08 Osteoarthritis of right knee joint 9100926866 68038 M17.11 2280482 Osteoarthr itis of left knee joint 1129006647 65517 M17.12 0803362 [id number] MAKAYLA Carranza [facility] [address] [place] [address] 01/15/2025 13:44:39 01/22/2025 08:26:16 Osteoarthritis of left knee joint 8572799638 20725 M17.12 5780269 Osteoarthr itis of right knee joint 4448642312 32543 M17.11 [id number] Health Concerns Section Related Observation LastModified by Organization Detai ls LastModified Time None Recorded Concern Status LastModified by Organization Details LastModified Time None Recorded Advance Directives Directive None Recorded Payers Insurance Date Sequence Insurance Name Policy Number Policy Cortez Covered Member ID Cortez Member ID Guarantor Name 01/22/2025 2 [facility] IN[facility]ITY [facility] (INDEMNITY) [id number] Abigail Stiles [id number] Abigail Stiles 01/15/2025 1 MEDICARE B-[place]: [facility] [employer] Abigail Stiles [id number] Abigail Stiles Notes Date Note Type [...] not need to pursue anything of this magnitude.[facility] speech recognition top coater software was used to create portions of this document. An attempt at proofreading has been made to minimize errors. Please call for corrections. Stefano Jacobs PA-C [address], [place], [address], [facility] 10/31/2024 12:40:50 12/30/2024 text/html I [...] re-evaluation next week for follow up injection. Stefaon Jacobs PA-C [address], [place], [address], [facility] 12/30/2024 11:41:14 01/06/2025 text/html I am seeing [...] follow up injection. Stefano Jacobs PA-C [address], [place], [address], [facility] 01/09/2025 10:16:31 01/15/2025 text/html I [...] follow up injection. Stefano Jacobs PA-C [address], [place], [address], [facility] 01/16/2025 11:21:49 OBGyn Episode No OBEpisode recorded.
== END ==
LOC: HO.CARD 09:26
PROVIDERS: PCP Internal Medicine; Visit Provider Internal Medicine
DX: I48.91 Unspecified atrial fibrillation (principal)
CPT/HCPCS: 93306; Q9957

== ENCOUNTER → 2025-05-28 09:30 | Outpatient (BNV) | payer MEDICARE, OTHER, SELFPAY | PROVIDERS: PCP Internal Medicine; Visit Provider Internal Medicine | DX: I48.91 Unspecified atrial fibrillation (principal) | CPT/HCPCS: 93306 ==